=== PATIENT | female | born 1970 | race Caucasian/White ===

== ENCOUNTER 2024-07-01 11:35 | Outpatient (AMB) | payer OTHER, SELFPAY ==
--- NOTE | 2024-07-01 11:37 | A.OFFVIS_ITS ---
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 Patient is followed by neurosurgeon Dr. Villatoro in [place] and has been also followed by pain management in [place] for injection therapy. She reports her pain specialist provider has left the practice. Patient reports small arachnoid cyst in T5-T6 on the right and has discussion surgical removal with Dr. Villatoro. Patient does have a Medtronic spinal cord stimulator with non rechargeable battery with paddles which is due for replacement. rep Valdo from [employer] is present today and has interrogated spinal cord stimulator device today and reports device is due for battery replacement otherwise no program adjustment is needed. Patient is also taking tramadol and baclofen, prescribed by PCP. Patient reports chronic low back pain and postlaminectomy syndrome has been well managed with spinal cord stimulator in place and she is looking for battery replacement. She reports significant localized tenderness in the projection of bilateral sacroiliac joint areas in greater trochanteric bursae. Patient interested to undergo therapeutic injections for SI joint pain. She has been getting therapeutic GTB injections every 3-4 months, with last injections one month ago. 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 Pain affects her daily activities and functioning, mobility, sleep, mood, and social interactions. Denies any fever or chills, abdominal or groin pain, weakness, foot drop, bladder or bowel dysfunction or saddle anesthesia. Location: Lower back with radiation into buttocks and lateral hips Duration: Chronic pain for many years Characteristics of symptom or complaint: Aching, throbbing, sharp, tightness, stabbing, crushing, tugging, tiring Aggravating or associated factors: Prolonged sitting or standing, walking, movements Relieving factors: Sitting, tramadol, baclofen, heat therapy Treatment: Injections for back/hips, TENS unit, Oska pulse pain relief, Medtronic SCS [facility] Medical History (Updated 07/01/24 @ 23:19 by CARMELA Chávez) Vitamin D deficiency Vitamin B12 deficiency Rhinitis PTSD (post-traumatic stress disorder) Ocular migraine Moderate somatic symptom disorder Nephrolithiasis Neck pain Knee pain Iron deficiency Hypercholesterolemia History of tobacco use History of colon polyps Hematuria Headache disorder GERD (gastroesophageal reflux disease) Fibromyalgia Depression Chronic mid back pain Chronic lower back pain Carpal tunnel syndrome, bilateral Borderline personality disorder Bipolar disorder Basilar artery migraine Asthma Anxiety Acute gastric ulcer Surgical History Gastric bypass status for obesity S/P insertion of spinal cord stimulator (~2021) H/O gastric bypass (~2000) H/O: hysterectomy (~2015) History of carpal tunnel surgery (~2016) History of section (~1986) History of back surgery (~2014) Social History Alcohol intake: current Alcohol intake frequency: holidays/special occasions only Patient Tobacco Use Status: Former Tobacco user Review of Systems Const All systems reviewed & are unremarkable except as noted in HPI and below Physical Exam Vital Signs: Last Vital Signs Pulse 78 07/01/24 11:46 BP 150/72 H 07/01/24 11:46 Pulse Ox 97 07/01/24 11:46 Oxygen Delivery Method Room Air 07/01/24 11:46 BMI result Body Mass Index 40.2 General: Appears afebrile. Alert and oriented. Mood and affect appropriate. Follows and participates in conversation appropriately. Respiratory effort is unlabored. No cough. Able to transition from sit to stand unassisted. Ambulates with bilaterally normal heel strike and toe off. General: Yes no CVA tenderness Back/Spine/Pelvis Other: Limited lumbar ROM due to pain. Lumbar flexion and extension reproduces mild symptoms. Demonstrates 5/5 strength of quadriceps bilaterally as well as flexion/dorsiflexion of bilateral feet against resistance. 2+ pedal pulses bilaterally. Seated straight leg rise with dorsiflexion negative bilaterally. Diminished patellar and achilles reflexes bilaterally. Facet loading test positive bilaterally. Dave sign, Amrit?s, [place], Pelvic compression and Stinchfield tests are positive bilaterally, left worse than right. No groin pain with I/E hip rotations. Mild TTP bilateral GTB. Valsalva maneuver negative. Back: no CVA tenderness Cervical Spine: cervical ROM normal, cervical muscular tenderness and No Cervical spine tenderness Thoracic/Lumbar Spine: thoracic and lumbar spine normal to inspection, Thoracic/lumbar spine scar(s), Lasegue's sign negative, straight leg raise negative bilaterally, pain with thoraco-lumbar ROM, paraspinal muscle tenderness, thoraco-lumbar ROM limited, thoracic spinal tenderness (upper thoracic) and lumbar spinal tenderness (L4-S1) Pelvis: buttock tenderness Sacroiliac joints: bilaterally tender to palpation Results Reviewed Results Reviewed: 11/25/2018 11/25/2018 MRI Thoracic spine w/o contrast 05/24/24 Assessment & Plan Assessment & Plan (1) Lumbar post-laminectomy syndrome: Code(s): M96.1 - Postlaminectomy syndrome, not elsewhere classified Category: Medical (2) Battery end of life of spinal cord stimulator: Code(s): Z45.42 - Encounter for adjustment and management of neurostimulator Category: Medical (3) Sacroiliac joint pain: Code(s): M53.3 - Sacrococcygeal disorders, not elsewhere classified Category: Medical (4) Greater trochanteric bursitis of both hips: Code(s): M70.61 - Trochanteric bursitis, right hip; M70.62 - Trochanteric bursitis, left hip Category: Medical (5) Chronic lower back pain: Code(s): M54.50 - Low back pain, unspecified; G89.29 - Other chronic pain Category: Medical (6) Lumbar degenerative disc disease: Code(s): M51.36 - Other intervertebral disc degeneration, lumbar region Category: Medical Plan Patient will follow up with Neurosurgeon Dr. Villatoro for Medtronic SCS battery replacement as this was neurosurgically implanted with paddles in 2021. Schedule bilateral therapeutic sacroiliac joint injections with local and fluoroscopy. Expectations, risks and benefits were reviewed. Patient is aware she will be contacted to schedule this procedure. Script provided for lidocaine patches and diclofenac gel. Patient is currently on tramadol 50 mg QID prn and baclofen 10 mg TID prn prescribed by her PCP. Patient reports current opioid medication allows her to be less symptomatic and more functional. All questions were answered and the patient is in agreement of plan. Follow-up after injections and sooner as needed. Medications: New 2 diclofenac sodium 1% (Arthritis Pain (diclofenac)) 4 grams topical QID 100 grams 1RF pain lidocaine 5% leave on most painful area for up to 12 hrs topically daily; 30 ea 1RF pain Coding Level of Care Code New Pt Level 4 (66535) Complex EM visit Add On G2211 Diagnoses Lumbar post-laminectomy syndrome M96.1 Battery end of life of spinal cord stimulator Z45.42 Sacroiliac joint pain M53.3 Greater trochanteric bursitis of both hips M70.61; M70.62 Chronic lower back pain M54.50; G89.29 Lumbar degenerative disc disease M51.36
[2024-07-01 11:46] VITALS: BP 150/72; PULSE 78; O2SAT 97; BMI 40.2
== END 2024-07-01 12:23 | disposition home or self-care (01) ==
PROVIDERS: PCP Internal Medicine; Visit Provider Nurse Practitioner Family
DX: M96.1 Postlaminectomy syndrome, not elsewhere classified (principal); Z45.42 Encounter for adjustment and management of neurostimulator; M53.3 Sacrococcygeal disorders, not elsewhere classified; M70.61 Trochanteric bursitis, right hip; M70.62 Trochanteric bursitis, left hip; M54.50 Low back pain, unspecified; G89.29 Other chronic pain; M51.36 Other intervertebral disc degeneration, lumbar region
CPT/HCPCS: 99204

== ENCOUNTER → 2024-07-01 11:35 | Outpatient (BNVA) | payer OTHER, SELFPAY | PROVIDERS: PCP Internal Medicine; Visit Provider Nurse Practitioner Family ==

== ENCOUNTER 2024-08-27 06:14 | Outpatient (REF) | payer OTHER, SELFPAY | END 2024-08-27 06:15 | disposition home or self-care (01) | LOC: CF 06:14 | PROVIDERS: Visit Provider Anesthesiology | DX: M53.3 Sacrococcygeal disorders, not elsewhere classified (principal) | CPT/HCPCS: 27096; J2003; J2795; J3301; Q9967 ==

== ENCOUNTER 2024-08-27 07:57 | Outpatient (AMB) | payer OTHER, SELFPAY ==
[2024-08-27 08:20] VITALS: BP 137/59; PULSE 98; RESP 17; O2SAT 97
[2024-08-27 08:40] VITALS: BP 142/75; PULSE 84; RESP 16; O2SAT 99
--- NOTE | 2024-08-27 08:46 | MHC.OFFVIS ---
Vital Signs 08/27/24 08:20 08/27/24 08:40 BP 137/59 L 142/75 H Blood Pressure Location Rt brachial Rt brachial Position Sitting Sitting Respiration 17 16 Pulse 98 84 Pulse Source Pulse Oximeter Pulse Oximeter Pulse Oximetry (%) 97 99 Oxygen Delivery Method Room Air Room Air Comment Pre-op Post-op Intake Visit Reasons: BILATERAL THERAPEUTIC SIJ INJECTIONS Allergies gabapentin Allergy (Unknown, Verified 08/27/24 08:47) suicidal thoughts lamotrigine [From Lamictal] Allergy (Unknown, Verified 08/27/24 08:47) Unknown Medication List - Last Reconciled 08/27/24 by Sonia Craig albuterol sulfate 90 mcg/actuation 2 puffs inhalation Q4-6H PRN ascorbate calcium (vitamin C) 500 mg PO DAILY baclofen 10 mg PO TID diclofenac sodium 1% (Arthritis Pain (diclofenac)) 4 grams topical QID ferrous sulfate (Iron (ferrous sulfate)) 325 mg PO DAILY fluticasone propion-salmeterol 500-50 mcg/dose (Advair Diskus) 1 inh inhalation BID hydroxyzine HCl 25 mg PO BID PRN lidocaine 5% leave on most painful area for up to 12 hrs topically daily; omeprazole 40 mg PO DAILY oxybutynin chloride ER 5 mg PO DAILY rosuvastatin 5 mg PO DAILY tramadol 50 mg PO Q6H PRN PFSH Medical History (Updated 07/01/24 @ 23:19 by CARMELA Chávez) Vitamin D deficiency Vitamin B12 deficiency Rhinitis PTSD (post-traumatic stress disorder) Ocular migraine Moderate somatic symptom disorder Nephrolithiasis Neck pain Knee pain Iron deficiency Hypercholesterolemia History of tobacco use History of colon polyps Hematuria Headache disorder GERD (gastroesophageal reflux disease) Fibromyalgia Depression Chronic mid back pain Chronic lower back pain Carpal tunnel syndrome, bilateral Borderline personality disorder Bipolar disorder Basilar artery migraine Asthma Anxiety Acute gastric ulcer Surgical History Gastric bypass status for obesity S/P insertion of spinal cord stimulator (~2021) H/O gastric bypass (~2000) H/O: hysterectomy (~2015) History of carpal tunnel surgery (~2016) History of section (~1986) History of back surgery (~2014) Social History Alcohol intake: current Alcohol intake frequency: holidays/special occasions only Patient Tobacco Use Status: Former Tobacco user Physical Exam Vital Signs: Last Vital Signs Pulse 84 08/27/24 08:40 Resp 16 08/27/24 08:40 BP 142/75 H 08/27/24 08:40 Pulse Ox 99 08/27/24 08:40 Oxygen Delivery Method Room Air 08/27/24 08:40 Assessment & Plan Assessment & Plan (1) Sacroiliac joint pain: Code(s): M53.3 - Sacrococcygeal disorders, not elsewhere classified Category: Medical Plan Bilateral therapeutic sacroiliac joint injection Informed consent was explained thoroughly to the patient.? All questions about benefits and risks for the procedure were answered. Patient came to the operating room and was positioned prone on the operating table with the pillow under the abdomen. The lower back and buttocks of the patient were prepped with ChloraPrep prepped and draped with sterile utility towels.? Sterilely draped C-arm was brought over the operating field and sq picture of patient's pelvis was demonstrated on the screen.? For the right joint tilting C-arm contralateral to the site of the joint the most posterior portion of the joints was superimposed with anterior silhouette of the joint.? Skin was injected in the projection of the joint slightly medial to the location of the joint with 25 gauge 1/2 inch needle using local lidocaine 2% . After that 22 gauge 3 and 1/2 inch needle was driven to the right joint in tunnel vision fashion.? When needle entered the joint capsule injection of the contrast was performed demonstrating intra-articular and minimally periarticular spread of the contrast.? After that 4 cc. of ropivacaine 0.5% mixed with Kenalog 40 mg was injected in the joint. After that procedure was repeated on the left side in mirroring fashion. Same dose of ropivacaine was injected into the joint. Upon completion of the injections the needle was removed and Band-Aid was applied.? Upon completion of the injection patient was taken outside of the operating room to the recovery room where recovered uneventfully. Orders: Orders [place] guidance in treatment room Today M53.3 - Sacrococcygeal disorders, not elsewhere classified Coding Level of Care Code Procedure Only Diagnoses Sacroiliac joint pain M53.3
== END 2024-08-27 08:45 | disposition home or self-care (01) ==
LOC: HO.PMCPRC 07:57
PROVIDERS: PCP Internal Medicine; Visit Provider Anesthesiology
DX: M53.3 Sacrococcygeal disorders, not elsewhere classified (principal)
CPT/HCPCS: 27096

== ENCOUNTER 2024-09-24 09:57 | Outpatient (AMB) | payer OTHER, SELFPAY ==
--- NOTE | 2024-09-24 10:02 | MHC.OFFVIS ---
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 Pascual. Patient reports ongoing 70% pain relief in the projection of bilateral SIJ areas with significant improvement in her daily functioning, mobility and sleep. She continues to experience pain both GTB regions and intermittent right calf warm sensations with tingling and chronic low back pain. Patient recently underwent batter replacement by Dr. Villatoro for lumbar Medtronic SCS implant 2 months ago. Patient is content with overall outcome for SIJ injections and will continue to monitor symptoms. Denies any recent cough, cold, infection, fever, bladder or bowel dysfunction, saddle anesthesia, or any other significant changes in medical or surgical history since last office visit. Past Procedures: 08/27/24: Bilateral Therapeutic SIJ injections-70% ongoing pain relief PRIOR: Patient is a pleasant 54 years old female under history of chronic mid and low back pain, history of L4-L5 lumbar fusion, fibromyalgia, chronic greater trochanteric bursitis, sacroiliac joint pain, anxiety and depression, PTSD, gastric bypass and morbid obesity presents today for initial evaluation of chronic low back pain. Patient is followed by neurosurgeon Dr. Villatoro in [place] and has been also followed by pain management in [place] for injection therapy. She reports her pain specialist provider has left the practice. Patient reports small arachnoid cyst in T5-T6 on the right and has discussion surgical removal with Dr. Villatoro. Patient does have a Medtronic spinal cord stimulator with non rechargeable battery with paddles which is due for replacement. rep Valdo from [employer] is present today and has interrogated spinal cord stimulator device today and reports device is due for battery replacement otherwise no program adjustment is needed. Patient is also taking tramadol and baclofen, prescribed by PCP. Patient reports chronic low back pain and postlaminectomy syndrome has been well managed with spinal cord stimulator in place and she is looking for battery replacement. She reports significant localized tenderness in the projection of bilateral sacroiliac joint areas in greater trochanteric bursae. Patient interested to undergo therapeutic injections for SI joint pain. She has been getting therapeutic GTB injections every 3-4 months, with last injections one month ago. 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 Pain affects her daily activities and functioning, mobility, sleep, mood, and social interactions. Denies any fever or chills, abdominal or groin pain, weakness, foot drop, bladder or bowel dysfunction or saddle anesthesia. Location: Lower back with radiation into buttocks and lateral hips Duration: Chronic pain for many years Characteristics of symptom or complaint: Aching, throbbing, sharp, tightness, stabbing, crushing, tugging, tiring Aggravating or associated factors: Prolonged sitting or standing, walking, movements Relieving factors: Sitting, tramadol, baclofen, heat therapy Treatment: Injections for back/hips, TENS unit, Oska pulse pain relief, Medtronic SCS [facility] Medical History Vitamin D deficiency Vitamin B12 deficiency Rhinitis PTSD (post-traumatic stress disorder) Ocular migraine Moderate somatic symptom disorder Nephrolithiasis Neck pain Knee pain Iron deficiency Hypercholesterolemia History of tobacco use History of colon polyps Hematuria Headache disorder GERD (gastroesophageal reflux disease) Fibromyalgia Depression Chronic mid back pain Chronic lower back pain Carpal tunnel syndrome, bilateral Borderline personality disorder Bipolar disorder Basilar artery migraine Asthma Anxiety Acute gastric ulcer Surgical History Gastric bypass status for obesity S/P insertion of spinal cord stimulator (~2021) H/O gastric bypass (~2000) H/O: hysterectomy (~2015) History of carpal tunnel surgery (~2016) History of section (~1986) History of back surgery (~2014) Social History Alcohol intake: current Alcohol intake frequency: holidays/special occasions only Patient Tobacco Use Status: Former Tobacco user Review of Systems Const All systems reviewed & are unremarkable except as noted in HPI and below Physical Exam General: Appears afebrile. Alert and oriented. Mood and affect appropriate. Follows and participates in conversation appropriately. Respiratory effort is unlabored. No cough. Able to transition from sit to stand unassisted. Ambulates with bilaterally normal heel strike and toe off. Back/Spine/Pelvis Cervical Spine: cervical ROM normal, cervical muscular tenderness and No Cervical spine tenderness Thoracic/Lumbar Spine: thoracic and lumbar spine normal to inspection, Thoracic/lumbar spine scar(s), Lasegue's sign negative, straight leg raise negative bilaterally, pain with thoraco-lumbar ROM, paraspinal muscle tenderness, thoraco-lumbar ROM limited, thoracic spinal tenderness (upper thoracic) and lumbar spinal tenderness (L4-S1) Pelvis: no buttock tenderness, no buttock swelling and Other pelvic findings (well healed left buttock incision) Sacroiliac joints: bilaterally tender to palpation (mild) Coccyx: Other pelvic findings (well healed left buttock incision) Extrem General: Yes capillary refill normal, Yes no clubbing, cyanosis or edema and Yes no calf tenderness Results Reviewed Results Reviewed: 11/25/2018 11/25/2018 MRI Thoracic spine w/o contrast 05/24/24 Assessment & Plan Assessment & Plan (1) Lumbar post-laminectomy syndrome: Code(s): M96.1 - Postlaminectomy syndrome, not elsewhere classified Category: Medical (2) Sacroiliac joint pain: Code(s): M53.3 - Sacrococcygeal disorders, not elsewhere classified Category: Medical (3) Greater trochanteric bursitis of both hips: Code(s): M70.61 - Trochanteric bursitis, right hip; M70.62 - Trochanteric bursitis, left hip Category: Medical (4) Chronic lower back pain: Code(s): M54.50 - Low back pain, unspecified; G89.29 - Other chronic pain Category: Medical (5) Lumbar degenerative disc disease: Code(s): M51.36 - Other intervertebral disc degeneration, lumbar region Category: Medical Plan Patient is status post recent Medtronic SCS battery replacement by Neurosurgeon Dr. Villatoro in July 2024. She reports ongoing 70% pain relief since bilateral therapeutic sacroiliac joint injections. We also reviewed SI joint stabilization with Painteq fusion device. Information pamphlet provided. Patient will continue to monitor her SIJ symptoms and notify our office when her pain returns to baseline. We will send request to [facility] and [facility] for most recent hip imaging for potential GTB injections in the near future if needed. All questions were answered and the patient is in agreement of plan. Follow-up as needed. Coding Level of Care Code Est Pt Level 3 (97732) Complex EM visit Add On G2211 Diagnoses Lumbar post-laminectomy syndrome M96.1 Sacroiliac joint pain M53.3 Greater trochanteric bursitis of both hips M70.61; M70.62 Chronic lower back pain M54.50; G89.29 Lumbar degenerative disc disease M51.36
[2024-09-24 10:06] VITALS: BP 142/70; PULSE 80; O2SAT 97; BMI 40.2
--- OUTSIDE RECORDS SUMMARY | 2024-09-25 19:37 | XMS_ITS | Continuity of Care Document ---
Author Organization [facility] Gareth Lares Quintin lt Address [address] [place] [address]- Care Team Providers Care Licsw Name Role Phone Jocelyn SANDOVAL, Juan Osborn Primary Care Physician [phone] Encounter [facility] Date(s): 08/07/24 - 09/06/24 [facility] Gareth Lares Adult [address] [place] [address]- Encounter Type: Triage Allergies, Adverse Reactions, Alerts Substance Criticality Severity Reaction Reaction Severity Status gabapentin Active LaMICtal dizziness Active Immunizations Given and Recorded Vaccine Date Status Refusal Reason pneumococcal 20-valent conjugate vaccine 01/27/23 Given Influenza Virus Vaccine (oldterm) 07/08/22 Recorde d Influenza Virus Vaccine (oldterm) 06/05/20 Recorde d Influenza Virus Vaccine (oldterm) 06/28/19 Recorde d Influenza Virus Vaccine (oldterm) 06/28/19 Recorde d [id number] 12y+ bivalent booster vax 07/08/22 Recorded influenza virus vaccine, inactivated 08/13/21 Give n influenza virus vaccine, inactivated 06/25/18 Thony rded influenza virus vaccine, inactivated 1 07/18/17 Re corded influenza virus vaccine, inactivated 07/17/17 Thony rded influenza virus vaccine, inactivated 08/09/16 Thony rded influenza virus vaccine, inactivated 2 07/16/16 Re corded influenza virus vaccine, inactivated 07/21/15 Give n influenza virus vaccine, inactivated 08/14/14 Thony rded influenza virus vaccine, inactivated 07/10/14 Give n influenza virus vaccine, inactivated 10/02/13 Give n zoster vaccine, inactivated 03/16/21 Recorded zoster vaccine, inactivated 01/27/21 Recorded SARS-CoV-2 (COVID-19) mRNA BNT-162b2 vac 03/01/21 Recorded SARS-CoV-2 (COVID-19) mRNA BNT-162b2 vac 02/08/21 Recorded tetanus/diphtheria/pertussis, acel(Tdap) 01/18/21 Given pneumococcal 23-valent vaccine 09/02/15 Given FluLaval (oldterm) 06/22/11 Given FluLaval (oldterm) 3 08/09/10 Given Tet/Diphth/Acel, Pertussis (oldterm) 12/14/10 Give n Influenza Vaccine (oldterm) 10/22/09 Given tetanus-diphtheria toxoids (Td) 09/15/00 Given Pneumococcal Vaccine (oldterm) 09/15/00 Given 1Result Comment: [07/19/2017] aleah 2Location History: aleah [address] 3Admin Note: Goomeo [facility] Medications Advair Diskus 500 mcg-50 mcg inhalation powder 1 puff, Inhalation, 2 times a day, # 3 each, Refills 3, Tot. Refills 3, Soft Stop, 01/01/24 8:51:00 AM EDT, Print Requisition Start Date: 01/01/24 Status: Ordered Quantity: 3.0 Unit: each Repeat number: 4 Albuterol (Eqv-ProAir HFA) 90 mcg/inh inhalation aerosol 2 puffs, Inhalation, Every 6 hours, PRN NEEDED FOR WHEEZING, # 3 each, 3 Refills, Maintenance, 08/13/21 9:12:00 AM EDT, [facility] #[id number], 2 puffs Inhalation Every 6 hours,PRN: NEEDED FOR WHEEZING, 170, cm, 08/13/21 9:00:00 EDT, Height, 117.3, kg, 01/17/21 12:43:00 EDT, Dry Weight Start Date: 08/13/21 Status: Ordered Quantity: 3.0 Unit: each Repeat number: 4 baclofen 10 mg oral tablet 1, tablet, By Mouth, 3 times a day, # 270 tablet, Refills 3, Tot. Refills 3, Maintenance, 02/09/24 1:13:00 PM EDT, Route to Pharmacy Electronically, [facility]/pharmacy #[id number], 168, cm, 02/09/24 12:56:00 EDT,Height, 107, kg, 02/10/23 13:11:00 EDT, Dry Weight Start Date: 02/09/24 Stop Date: 02/03/25 Status: Ordered Quantity: 270.0 Unit: tablet Repeat number: 4 controlled contract signed controlled contract signed, See Instructions, Refills 0, Maintenance, pt signed a controlled substance contract, 07/04/18 3:00:46 PM EDT, Compound Start Date: 07/04/18 Status: Ordered Repeat number: 1 Crestor 5 mg oral tablet 1 tablet = 5 mg, By Mouth, Daily, # 90 tablet, 3 Refills, Maintenance, 02/09/24 1:13:00 PM EDT, Tablet, [facility]/pharmacy #[id number], 168, cm, 02/09/24 12:56:00 EDT, Height, 107, kg, 02/10/23 13:11:00 EDT, Dry Weight Start Date: 02/09/24 Status: Ordered Quantity: 90.0 Unit: tablet Repeat number: 4 ferrous sulfate 325 mg oral tablet 1 tablet = 325 mg, By Mouth, Daily, may take with food to minimize abdominal discomfort, # 90 tablet, 3 Refills, Maintenance, 02/09/24 1:13:00 PM EDT, Tablet, [facility]/pharmacy #[id number], Partial fill upon patient request if the prescription is for a schedule II opioid drug., 168, cm, 02/09/24 12:56:00 EDT, Height, 107, kg, 02/10/23 13:11:00 EDT, Dry Weight Start Date: 02/09/24 Status: Ordered Quantity: 90.0 Unit: tablet Repeat number: 4 folic acid 1 mg oral tablet 1 mg, 1, tablet, By Mouth, Daily, # 90 tablet, Refills 3, Tot. Refills 3, Maintenance, 02/09/24 1:13:00 PM EDT, Route to Pharmacy Electronically, [facility]/pharmacy #[id number], Partial fill upon patient request if the prescription is for a schedule II opioid drug., 168, cm, 02/09/24 12:56:00 EDT, Height, 107, kg, 02/10/23 13:11:00 EDT, Dry Weight Start Date: 02/09/24 Status: Ordered Quantity: 90.0 Unit: tablet Repeat number: 4 Hearing Test Hearing Test, See Instructions, # 1 each, Refills 1, Tot. Refills 1, Maintenance, Eval and treat. Dx: Hearing loss, 07/09/18 4:51:13 PM EDT, Compound Start Date: 07/09/18 Status: Ordered Quantity: 1.0 Unit: each Repeat number: 2 hydrOXYzine hydrochloride 25 mg oral tablet 2 tablet, By Mouth, Daily at bedtime, # 180 tablet, 3 Refills, Maintenance, 08/12/24 11:03:00 AM EDT, [id number], 168, cm, 04/08/24 8:20:00 EDT, Height, 107, kg, 02/10/23 13:11:00 EDT, Dry Weight Start Date: 08/12/24 Status: Ordered Quantity: 180.0 Unit: tablet Repeat number: 1 ibuprofen 800 mg oral tablet 1, tablet, By Mouth, 3 times a day, # 270 tablet, Refills 3, Tot. Refills 3, Maintenance, 02/09/24 1:13:00 PM EDT, Route to Pharmacy Electronically, [facility]/pharmacy #[id number], 168, cm, 02/09/24 12:56:00 EDT,Height, 107, kg, 02/10/23 13:11:00 EDT, Dry Weight Start Date: 02/09/24 Stop Date: 02/03/25 Status: Ordered Quantity: 270.0 Unit: tablet Repeat number: 4 LORazepam 0.5 mg oral tablet 1 tablet = 0.5 mg, By Mouth, 3 times a day, PRN for anxiety, # 12 tablet, 0 Refills, Maintenance, 08/07/24 4:02:00 PM EDT, Tablet, [facility]/pharmacy #[id number], Partial fill upon patient request if the prescription is for a schedule II opioid drug., 168, cm, 04/08/24 8:20:00 EDT, Height, 107, kg, 02/10/23 13:11:00 EDT, Dry Weight Start Date: 08/07/24 Status: Ordered Quantity: 12.0 Unit: tablet Repeat number: 1 NEBULIZER AND SUPPLIES NEBULIZER AND SUPPLIES, See Instructions, # 1 each, Refills 11, Tot. Refills 11, Maintenance, PLEASE DISPENCE 1 NEBULIZER AND SUPPLIES FOR MACHINE, 01/19/18 9:02:35 AM EDT, Compound Start Date: 01/19/18 Status: Ordered Quantity: 1.0 Unit: each Repeat number: 12 omeprazole 40 mg oral enteric coated capsule 1 capsule, By Mouth, 2 times a day, # 180 capsule, 3 Refills, Maintenance, 02/09/24 1:13:00 PM EDT, [facility]/pharmacy #[id number], 168, cm, 02/09/24 12:56:00 EDT, Height, 107, kg, 02/10/23 13:11:00 EDT, Dry Weight Start Date: 02/09/24 Status: Ordered Quantity: 180.0 Unit: capsule Repeat number: 4 oxybutynin 5 mg/24 hours oral tablet, extended release 1 tablet, By Mouth, Daily at bedtime, DO NOT CRUSH OR CHEW, # 90 tablet, 3 Refills, Maintenance, 02/09/24 1:13:00 PM EDT, [facility]/pharmacy #[id number], 168, cm, 02/09/24 12:56:00 EDT, Height, 107, kg, 02/10/23 13:11:00 EDT, Dry Weight Start Date: 02/09/24 Stop Date: 02/03/25 Status: Ordered Quantity: 90.0 Unit: tablet Repeat number: 4 traMADol 50 mg oral tablet 1 tablet, By Mouth, Every 6 hours, # 120 tablet, 5 Refills, Maintenance, 07/17/24 1:37:00 PM EDT, [facility]/pharmacy #[id number], 168, cm, 04/08/24 8:20:00 EDT, Height, 107, kg, 02/10/23 13:11:00 EDT, Dry Weight Start Date: 07/17/24 Stop Date: 01/13/25 Status: Ordered Quantity: 120.0 Unit: tablet Repeat number: 6 Vitamin C 500 mg oral tablet 1 tablet = 500 mg, By Mouth, Daily, # 90 tablet, 3 Refills, Maintenance, 02/09/24 1:17:00 PM EDT, Tablet, [facility]/pharmacy #[id number], Partial fill upon patient request if the prescription is for a schedule IIopioid drug., 168, cm, 02/09/24 12:56:00 EDT, Height, 107, kg, 02/10/23 13:11:00 EDT, Dry Weight Start Date: 02/09/24 Status: Ordered Quantity: 90.0 Unit: tablet Repeat number: 4 Vitamin C 500 mg oral tablet, chewable 1 tablet = 500 mg, Chew, Daily, Take with iron pill at lunch time to help with iron absorption, # 90 tablet, 1 Refills, Maintenance, 10/21/22 1:55:00 PM EST, Chew Tablet, [facility]pharmacy #[id number], Partial fill upon patient request if the prescription is for a schedule II opioid drug., 170, cm, 10/21/22 12:52:00 EST, Height, 117.3, kg, 01/17/21 12:43:00 EDT, Dry Weight Start Date: 10/21/22 Status: Ordered Quantity: 90.0 Unit: tablet Repeat number: 2 Problem List Condition Confirmation Course Effective Dates Status Health Status Informant Acute gastric ulcer Confirmed Active Anxiety Confirmed Active Asthma Confirmed Active Basilar artery migraine Confirmed Active Bipolar disorder Confirmed Active Borderline personality disorder Confirmed Active Carpal tunnel syndrome on both sides 1 Confirmed Active Chronic mid back pain Confirmed Active Chronic low back pain Confirmed Active Depression Confirmed Active Fibromyalgia Confirmed Active Gastric bypass operation Confirmed Active GERD (gastroesophageal reflux disease) Confirmed Active History of hysterectomy 2 Confirmed Active Headache disorder Confirmed Active Hematuria Confirmed Active History of colonoscopy 3 Confirmed Active History of colon polyps Confirmed Active History of tobacco use Confirmed 06/22/11 Active Hypercholesterolemia Confirmed Active Iron deficiency Confirmed Active Neck pain Confirmed Active Nephrolithiasis Confirmed Active Ocular migraine Confirmed Active Knee pain, right Confirmed Active PTSD - Post-traumatic stress disorder Confirmed Active Rhinitis Confirmed Active Severe obesity Confirmed Active 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 Finch 3Colonoscopy 2022 positive multiple polyps, repeat 2025. Social History Social History Type Response Smoking Status Former smoker; Other : quit smoking 1 1/2rs ago; entered on: 08/12/15 Sex Female Sex Representation Female (finding) Patient Care team information Care Team Personnel Name: Juan Banks MD Position: [facility] Physician - Primary Care Member Role: PCP Address: [address] [place], [place] [id number] Telecom: Name: Jeanie Jimenez RN Position: [facility] RN Member Role: Primary Care Nurse Name: Uyen Chanel RN Position: [facility] RN Member Role: Primary Care Nurse Name: Buzz Srivastava RN Position: [facility] RN Member Role: Primary Care Nurse Care Team Related Persons Name: MARCUS LARES Name: DORYS LARES Insurance Providers Guarantor name: ALETHARebecca KHOURYARNAUD Health Plan Information #: 1 [facility] Member Number: NA Policy Number: NA Group Number: NA
--- OUTSIDE RECORDS SUMMARY | 2024-09-25 19:37 | XMS_ITS | Continuity of Care Document ---
Author Organization [facility] Gareth Lares Quintin Address [address] [place] [id number]- Care Team Providers Care Banquet Kitchen Supervisor Name Role Phone Jocelyn SANDOVAL, Juan Osborn Primary Care Physician [phone] [place] [facility] [place]23[place] - 09/22/24 [facility] Gareth Leeley Adult [address] [place] [address]- Attending Physician: García Hull Encounter Type: Triage Allergies, Adverse Reactions, Alerts Substance Criticality Severity Reaction Reaction Severity Status gabapentin Active LaMICtal dizziness Active Immunizations Given and Recorded Vaccine Date Status Refusal Reason pneumococcal 20-valent conjugate vaccine 01/27/23 Given Influenza Virus Vaccine (oldterm) 07/08/22 Recorde d Influenza Virus Vaccine (oldterm) 06/05/20 Recorde d Influenza Virus Vaccine (oldterm) 06/28/19 Recorde d Influenza Virus Vaccine (oldterm) 06/28/19 Recorde d [id number] 12y+ bivalent booster vax 07/08/22 Recorded influenza [...] 1Result Comment: [07/19/2017] aleah 2Location History: aleah [address] 3Admin Note: [facility] Medications Advair Diskus 500 mcg-50 mcg [...] 3 Refills, Maintenance, 08/13/21 9:12:00 AM EDT, [facility] #[id number], 2 puffs Inhalation Every 6 hours,PRN: NEEDED [...] 1:13:00 PM EDT, Route to Pharmacy Electronically, [facility]/pharmacy #[id number], 168, cm, 02/09/24 12:56:00 EDT,Height, 107, [...] Refills, Maintenance, 02/09/24 1:13:00 PM EDT, Tablet, [facility]/pharmacy #[id number], 168, cm, 02/09/24 12:56:00 EDT, Height, 107, kg, 02/10/23 13:11:00 EDT, Dry Weight Start Date: 02/09/24 Status: Ordered Quantity: 90.0 Unit: tablet Repeat number: 4 ferrous sulfate 325 mg oral tablet 1 tablet = 325 mg, By Mouth, Daily, may take with food to minimize abdominal discomfort, # 90 tablet, 3 Refills, Maintenance, 02/09/24 1:13:00 PM EDT, Tablet, [facility]/pharmacy #[id number], Partial fill upon patient request if [...] 1:13:00 PM EDT, Route to Pharmacy Electronically, [facility]/pharmacy #[id number], Partial fill upon patient request if [...] 3 Refills, Maintenance, 08/12/24 11:03:00 AM EDT, [facility] STORE [id number], 168, cm, 04/08/24 8:20:00 EDT, Height, 107, kg, 02/10/23 13:11:00 EDT, Dry Weight Start Date: 08/12/24 Status: Ordered Quantity: 180.0 Unit: tablet Repeat number: 1 ibuprofen 800 mg oral tablet 1, tablet, By Mouth, 3 times a day, # 270 tablet, Refills 3, Tot. Refills 3, Maintenance, 02/09/24 1:13:00 PM EDT, Route to Pharmacy Electronically, [facility]/pharmacy #[id number], 168, cm, 02/09/24 12:56:00 EDT,Height, 107, kg, 02/10/23 13:11:00 EDT, Dry Weight Start Date: 02/09/24 Stop Date: 02/03/25 Status: Ordered Quantity: 270.0 Unit: tablet Repeat number: 4 LORazepam 0.5 mg oral tablet 1 tablet = 0.5 mg, By Mouth, 3 times a day, PRN for anxiety, # 12 tablet, 0 Refills, Maintenance, 08/07/24 4:02:00 PM EDT, Tablet, [facility]/pharmacy #[id number], Partial fill upon patient request if [...] 3 Refills, Maintenance, 02/09/24 1:13:00 PM EDT, [facility]/pharmacy #[id number], 168, cm, 02/09/24 12:56:00 EDT, Height, 107, kg, 02/10/23 13:11:00 EDT, Dry Weight Start Date: 02/09/24 Status: Ordered Quantity: 180.0 Unit: capsule Repeat number: 4 oxybutynin 5 mg/24 hours oral tablet, extended release 1 tablet, By Mouth, Daily at bedtime, DO NOT CRUSH OR CHEW, # 90 tablet, 3 Refills, Maintenance, 02/09/24 1:13:00 PM EDT, [facility]/pharmacy #[id number], 168, cm, 02/09/24 12:56:00 EDT, Height, 107, kg, 02/10/23 13:11:00 EDT, Dry Weight Start Date: 02/09/24 Stop Date: 02/03/25 Status: Ordered Quantity: 90.0 Unit: tablet Repeat number: 4 traMADol 50 mg oral tablet 1 tablet, By Mouth, Every 6 hours, # 120 tablet, 5 Refills, Maintenance, 07/17/24 1:37:00 PM EDT, [facility]/pharmacy #[id number], 168, cm, 04/08/24 8:20:00 EDT, Height, [...] 08/12/15 Sex Female Sex Representation Female (finding) Note * Event Display: History and Physical, Non-BH Authored Date: EKG study * Event Display: EKG Authored Date: * Event Display: EKG Authored Date: * Event Display: EKG Authored Date: Laboratory * Event Display: Non BH Lab Results Authored Date: * Event Display: Non BH Lab Results Authored Date: * Event Display: Laboratory Result Scanned Authored Date: Radiology * Event Display: IR Special Procedures, Non-BH Authored Date: * Event Display: IR Special Procedures, Non-BH Authored Date: * Event Display: IR Special Procedures, Non-BH Authored Date: * Event Display: X-Ray Knee, Non- BH Authored Date: * Event Display: Non BH Radiology Results Authored Date: * Event Display: Radiology Result Scanned Authored Date: * Alejandrina Henrietta: PERFORM Event Display: Radiology Results Scanned Authored Date: Patient Care team information Care Team Personnel Name: Jocelyn SANDOVAL, Juan Osborn Position: [facility] Physician - Primary Care Member Role: PCP Address: [address] [place] [address]- Telecom: Name: Jeanie Jimenez RN Position: [facility] RN Member Role: Primary Care Nurse Name: Uyen Chnael RN Position: S RN Member Role: Primary Care Nurse Name: Buzz Srivastava RN Position: S RN Member Role: Primary Care Nurse Care Team Related Persons Name: MARCUS LARES Name: DORYS LARES Insurance Providers Guarantor name: [facility] Information #: 1 Payer: [facility] Member Number: NA Policy Number: NA Group Number: NA
--- OUTSIDE RECORDS SUMMARY | 2024-09-25 19:37 | XMS_ITS | Continuity of Care Document ---
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 Name Role Phone Juan Banks MD Primary Care Physician [place] [facility] [place] 09[place]/24 [facility] Gareth Lares Adult [address] [place], [place] [address] Attending Physician: Juan Banks MD Encounter Type: Pre Office Visit Allergies, Adverse Reactions, Alerts Substance Criticality Severity Reaction Reaction Severity Status gabapentin Active LaMICtal dizziness Active Immunizations Given and Recorded Vaccine Date Status Refusal Reason pneumococcal 20-valent conjugate vaccine 01/27/23 Given Influenza Virus Vaccine (oldterm) 07/08/22 Recorde d Influenza Virus Vaccine (oldterm) 06/05/20 Recorde d Influenza Virus Vaccine (oldterm) 06/28/19 Recorde d Influenza Virus Vaccine (oldterm) 06/28/19 Recorde d [id number] 12y+ bivalent booster vax 07/08/22 Recorded influenza [...] 1Result Comment: [07/19/2017] aleah 2Location History: aleah [address] 3Admin Note: [facility] Medications Advair Diskus 500 mcg-50 mcg [...] 3 Refills, Maintenance, 08/13/21 9:12:00 AM EDT, [facility] #[id number], 2 puffs Inhalation Every 6 hours,PRN: NEEDED [...] 1:13:00 PM EDT, Route to Pharmacy Electronically, [facility]/pharmacy #[id number], 168, cm, 02/09/24 12:56:00 [...] Refills, Maintenance, 02/09/24 1:13:00 PM EDT, Tablet, [facility]/pharmacy #1157, 168, cm, 02/09/24 12:56:00 EDT, Height, 107, kg, 02/10/23 13:11:00 EDT, Dry Weight Start Date: 02/09/24 Status: Ordered Quantity: 90.0 Unit: tablet Repeat number: 4 ferrous sulfate 325 mg oral tablet 1 tablet = 325 mg, By Mouth, Daily, may take with food to minimize abdominal discomfort, # 90 tablet, 3 Refills, Maintenance, 02/09/24 1:13:00 PM EDT, Tablet, [facility]/pharmacy #[id number], Partial fill upon patient [...] 1:13:00 PM EDT, Route to Pharmacy Electronically, [facility]/pharmacy #[id number], Partial fill upon patient [...] 3 Refills, Maintenance, 08/12/24 11:03:00 AM EDT, [facility]ORE 612[facility], 168, cm, 04/08/24 8:20:00 EDT, Height, 107, kg, 02/10/23 13:11:00 EDT, Dry Weight Start Date: 08/12/24 Status: Ordered Quantity: 180.0 Unit: tablet Repeat number: 1 ibuprofen 800 mg oral tablet 1, tablet, By Mouth, 3 times a day, # 270 tablet, Refills 3, Tot. Refills 3, Maintenance, 02/09/24 1:13:00 PM EDT, Route to Pharmacy Electronically, [facility]/pharmacy #[id number], 168, cm, 02/09/24 12:56:00 EDT,Height, 107, kg, 02/10/23 13:11:00 EDT, Dry Weight Start Date: 02/09/24 Stop Date: 02/03/25 Status: Ordered Quantity: 270.0 Unit: tablet Repeat number: 4 LORazepam 0.5 mg oral tablet 1 tablet = 0.5 mg, By Mouth, 3 times a day, PRN for anxiety, # 12 tablet, 0 Refills, Maintenance, 08/07/24 4:02:00 PM EDT, Tablet, [facility]/pharmacy #[id number], Partial fill upon patient [...] 3 Refills, Maintenance, 02/09/24 1:13:00 PM EDT, [facility]/pharmacy #1157, 168, cm, 02/09/24 12:56:00 EDT, Height, 107, kg, 02/10/23 13:11:00 EDT, Dry Weight Start Date: 02/09/24 Status: Ordered Quantity: 180.0 Unit: capsule Repeat number: 4 oxybutynin 5 mg/24 hours oral tablet, extended release 1 tablet, By Mouth, Daily at bedtime, DO NOT CRUSH OR CHEW, # 90 tablet, 3 Refills, Maintenance, 02/09/24 1:13:00 PM EDT, [facility]/pharmacy #1157, 168, cm, 02/09/24 12:56:00 EDT, Height, 107, kg, 02/10/23 13:11:00 EDT, Dry Weight Start Date: 02/09/24 Stop Date: 02/03/25 Status: Ordered Quantity: 90.0 Unit: tablet Repeat number: 4 traMADol 50 mg oral tablet 1 tablet, By Mouth, Every 6 hours, # 120 tablet, 5 Refills, Maintenance, 07/17/24 1:37:00 PM EDT, [facility]/pharmacy #1157, 168, cm, 04/08/24 8:20:00 [...] Maintenance, 10/21/22 1:55:00 PM EST, Chew Tablet, [facility]/pharmacy #[id number], Partial fill upon patient [...] deficiency Confirmed 10/07/11 Active 1EMG 08/14/14 Mild [address] - Dr. Finch 3Colonoscopy 2022 positive multiple polyps, repeat 2025. Social History Social History Type Response Smoking Status Former smoker; Other : quit smoking 1 1/2rs ago; entered on: 08/12/15 Sex Female Sex Representation Female (finding) Patient Care team information Care Team Personnel Name: Jocelyn SANDOVAL, Juan Osborn Position: [facility] Physician - Primary Care Member Role: PCP Address: [address] [place] [phone]- Telecom: Name: Jeanie Jimenez RN Position: S RN Member Role: Primary Care Nurse Name: Uyen Chanel RN Position: [facility] RN Member Role: Primary Care Nurse Name: Buzz Srivastava RN Position: [facility] RN Member Role: Primary Care Nurse Care Team Related Persons Name: MARCUS LARES Name: DORYS LARES Insurance Providers Guarantor name: ALETHARebecca KHOURYARNAUD Health Plan Information #: 1 [facility] Member Number: [id number] Policy Number: NA Group Number: [id number] Health Plan Information #: 2 Payer: [employer] POS Member Number: [id number] Policy Number: NA Group Number: NA
--- OUTSIDE RECORDS SUMMARY | 2024-09-25 19:38 | XMS_ITS | Patient Health Record ---
Author Organization 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 Name Role Phone Juan Banks Primary Care Provider Unavailabl e ALLERGIES Allergen (clinical drug ingredient) Drug/Non Drug Allergy documented on EMR Reaction Allergy Type Onset Date Status lamotrigine LaMICtal dizziness Drug Allergy Activ e gabapentin Gabapentin Unknown Drug Allergy Activ e REASON FOR REFERRAL No Information MEDICATIONS Medication SIG (Take, Route, Frequency, Duration) Notes Start Date End Date Status Advair Diskus 500-50 MCG/ACT 1 puff Inhalation Twice a day Active traMADol HCl 50 MG 1 tablet as needed O rally Once a day Active Ciclopirox 8 % 1 application 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 [employer] ally to toenail Once a day for 365 days 10/31/2022 Active Albuterol Sulfate HFA 108 (90 Base) MCG/ACT 1 puff as needed Inhalation every 4 hrs Active Vitamin C 500 MG 1 tablet Orally Once a day Active oxyBUTYnin Chloride ER 5 MG 1 tablet Orally Once a day A ctive Omeprazole 40 MG 1 capsule 30 minutes before morning meal Orally Once a day Active Ibuprofen 800 MG 1 tablet with food o r milk as needed Orally every 8 hrs Active hydrOXYzine HCl 25 MG 1 tablet at bedtim e as needed Orally Once a day Active Folic Acid 1 MG 1 tablet Orally Once a day Active Ferrous Sulfate 325 (65 Fe) MG 1 tablet Orally Once a day A ctive Crestor 5 MG 1 tablet Orally Once a day Active Baclofen 10 MG 1 tablet as needed O rally Twice a day Active PLAN OF TREATMENT No Information Insurance Providers Payer Name Payer Address Payer Phone Subscriber Number Group Number Insured Name Patient Relationship to Insured Coverage Start Date Coverage End Date Cigna [address] [place] [phone] [id number] Carito Lam Self - patient is the insured MEDICAL (GENERAL) HISTORY Medical History History ICD Code acute gastric ulcer anxiety asthma basilar artery migraine bipolar disorder borderline personality disorder bilateral carpal tunnel syndrome chronic low back pain chronic mid back pain depression fibromyalgia gastric bypass operation GERD (gastroesophageal reflux disease) headache hematuria history of tobacco use hypercholesterolemia iron deficiency moderate somatic symptom disorder with p redominant pain morbid obesity with BMI of 40.0-44.9 neck pain nephrolithiasis ocular migraine PTSD (post-traumatic stress disorder) rhinitis vitamin B12 deficiency vitamin D deficiency COVID vaccinated X 2 ([place]) and [address] ([place]) Surgical History Surgery Date(Month/Year) hysterectomy 02/04/2015 bilateral carpal tunnel release gastric bypass operation spinal stimulator X 2 right achilles tendon repair back surgery 1999 1986 Hospitalization History Reason Date(Month/Year) (girl) 1990 (boy) 1986 gastric bypass hysterectomy 02/04/2015 back surgery
--- OUTSIDE RECORDS SUMMARY | 2024-09-25 19:38 | XMS_ITS ---
Author Name [facility] Organization Unknown Results Test Name/Text Value Interpretation Date Range Source Calcium SerPl-mCnc 9.7mg/dL Normal [id number] 8.7 - 10 .5 [facility] BUN SerPl-mCnc 14mg/dL Normal [id number] 8 - 21 [facility] CCT Creat SerPl-mCnc 0.7mg/dL Normal [id number] 0.4 - 1.1 [facility] GFR/BSA.pred SerPlBld DYB-DPY-LbTMdg 90 Normal [id number] 59 - [facility] Chloride SerPl-sCnc 102mmol/L Normal [id number] 98 - 10 7 [facility] BUN/Creat SerPl 20Ratio Normal [id number] 10 - 25 H [facility] CO2 SerPl-sCnc 27mmol/L Normal [id number] 22 - 33 [facility] CCT Anion Gap Bld-sCnc 13 Normal [id number] 7 - 17 [facility] Potassium SerPl-sCnc 3.7mmol/L Normal [id number] 3.4 - 5.3 [facility] Glucose SerPl-mCnc 67mg/dL Normal [id number] 65 - 99 [facility] Sodium SerPl-sCnc 142mmol/L Normal [id number] 136 - 145 [facility] Hgb A1c MFr Bld 5.7% Above high normal [id number] - 5 .7 [facility] Est. average glucose Bld gHb Est-mCnc 117mg/dL Normal [id number] [facility] INR PPP Normal [id number] [facility] COMMENT Normal [id number] [facility] Prothrombin time Normal [id number] 10 - 13.5 [facility] Neutrophils num Bld Auto 4.78Thou/uL Normal [id number] 2 - 7.5 [facility] Monocytes num Bld Auto 0.41Thou/uL Normal [id number] 0. 2 - 1.5 [facility] Eosinophil num Bld Auto 0.15Thou/uL Normal [id number] 0 - 0.7 [facility] WBC num Bld Auto 7.3Thou/uL Normal [id number] 4 - 11 [facility] MCHC RBC Auto-mCnc 31.7g/dL Normal [id number] 30 - 36 [facility] Monocytes/leuk NFr Bld Auto 5.6% Normal [id number] [facility] Hct VFr Bld Auto 42.3% Normal [id number] 35 - 47 [facility] RBC num Bld Auto 4.35Mil/uL Normal [id number] 4 - 5.4 [facility] RDW RBC Auto-Rto 12.4% Normal [id number] 11.5 - 14. 5 [facility] PMV Bld Auto 9.1fL Normal [id number] 7.5 - 12.[address] [facility] Eosinophil/leuk NFr Bld Auto 2.1% Normal [id number] [facility] MCH RBC Qn Auto 30.8pg Normal [id number] 27 - 31 [facility] Basophils/leuk NFr Bld Auto 1.5% Normal [id number] [facility] Basophils num Bld Auto 0.11Thou/uL Normal [id number] 0 - 0.2 [facility] Platelet num Bld Auto 348Thou/uL Normal [id number] 150 - 450 [facility] Neutrophils/leuk NFr Bld Auto 65.4% Normal [id number] [facility] MCV RBC Auto 97fL Normal [id number] 80 - 100 [facility] T Lymphocytes/leuk NFr Bld Auto 25% Normal [id number] [facility] Lymphocytes num Bld Auto 1.83Thou/uL Normal [id number] 1.5 - 4.5 [facility] Imm Granulocytes/leuk NFr Bld Auto 0.4% Normal [id number] [facility] Hgb Bld-mCnc 13.4g/dL Normal [id number] 11.7 - 15.7 [facility] Imm Granulocytes num Bld Auto 0.03Thou/uL Normal [id number] 0 - 0.1 [facility] Anticoagulant Normal [id number] [facility] History of Medication Use Medication Directions Dispensed Refills Start Date End Date [facility] oxyCODONE (ROXICODONE) 5 MG immediate release tablet Take 1 tablet (5 mg total) by mouth 4 times daily (every 6 hours) as needed for moderate pain or severe pain. Max Daily Amount: 20 mg 09/04/2024 10/15/9999 active Multiple Vitamin (multivitamin) capsule Take 1 capsule by mouth daily. 07/13/2024 active folic acid (FOLVITE) 1 MG tablet Take 1 tablet (1 mg total) by mouth. 07/02/2024 active ibuprofen (MOTRIN) 800 mg tablet Take 1 tablet (800 mg total) by mouth. 07/02/2024 active rosuvastatin (CRESTOR) 5 MG tablet Take 5 mg by mouth every morning. Take this medication the morning of surgery. 07/27/2022 active nitrofurantoin (MACRODANTIN) 100 MG capsule TAKE 1 CAPSULE BY MOUTH TWICE A DAY FOR 5 DAYS 09/27/2022 active Cannabis (MARIJUANA) [facility] Strength Take by mouth daily as needed. 07/27/2022 active oxybutynin (DITROPAN-XL) 5 MG 24 hr tablet TAKE 1 TABLET BY MOUTH EVERYDAY AT BEDTIME 09/27/2022 active ascorbic acid (VITAMIN C) 1000 MG tablet Take 1 tablet (1,000 mg total) by mouth daily. Do not start before January 26, 2022. 07/27/2022 active OMEprazole (PriLOSEC) 40 MG capsule Take 40 mg by mouth every morning before breakfast. Take this medication the morning of surgery. 07/27/2022 active ondansetron (ZOFRAN) 4 MG tablet 07/27/2022 active cephALEXin (KEFLEX) 250 mg capsule Take 3 capsules (750 mg total) by mouth 3 (three) times a day. 07/27/2022 active diazepam (VALIUM) 10 MG tablet Take 1 tablet (10 mg total) by mouth 4 times daily (every 6 hours) as needed for anxiety (Take 1 tablet 2 hours before MRI). 07/27/2022 active diclofenac (VOLTAREN) 1 % gel Apply topically 4 (four) times a day. Apply 1-2 grams to affected area 07/27/2022 active sulfamethoxazole-trim ethoprim (BACTRIM DS,SEPTRA DS) 800-160 MG per tablet Take 1 tablet by mouth every 12 (twelve) hours around the clock. 07/27/2022 active traMADol (ULTRAM) 50 MG tablet Take 50 mg by mouth. 07/27/2022 active OMEprazole (PriLOSEC) 40 MG capsule Take 1 capsule by mouth. 09/27/2022 active Ascorbic Acid (Vitamin C) 500 MG Cap Take 500 mg by mouth. 02/22/2023 aborted oxybutynin (DITROPAN-XL) 5 MG 24 hr tablet Take 1 tablet by mouth. 02/22/2023 aborted baclofen (LIORESAL) 10 MG tablet Take 1 tablet (10 mg total) by mouth 3 (three) times a day. 07/27/2022 active hydrOXYzine HCl (ATARAX) 25 MG tablet TAKE 2 TABLETS BY MOUTH DAILY AT BEDTIME 09/27/2022 active ferrous sulfate 325 (65 FE) MG tablet Take 325 mg by mouth. 02/22/2023 active senna-docusate (SENNA-S) 8.6-50 MG Take 2 tablets by mouth nightly. 07/27/2022 active ibuprofen (MOTRIN) 800 mg tablet Take 1 tablet by mouth. 07/27/2022 active baclofen (LIORESAL) 10 MG tablet Take 1 tablet by mouth. 02/22/2023 aborted albuterol (PROVENTIL HFA; VENTOLIN HFA) 108 (90 Base) MCG/ACT inhaler 2 puffs as needed. 07/27/2022 active ADVAIR DISKUS 500-50 MCG/DOSE diskus inhaler Take 1 insert by mouth 2 (two) times a day. Take this medication the morning of surgery. 07/27/2022 active HYDROmorphone (DILAUDID) 2 MG tablet Take 1 tablet (2 mg total) by mouth every 3 (three) hours as needed for moderate pain. Max Daily Amount: 16 mg 07/27/2022 active acetaminophen (TYLENOL) 325 MG tablet Take 3 tablets (975 mg total) by mouth every 8 (eight) hours around the clock. 07/27/2022 active LORazepam (ATIVAN) 0.5 MG tablet Take 0.5 mg by mouth 3 (three) times a day as needed. for anxiety 07/27/2022 active lidocaine (LIDODERM) 5 % patch APPLY 1 PATCH ON THE SKIN DAILY AND LEAVE ON FOR 12 HOURS, THEN REMOVE. PATCH MAY REMAIN ON SKIN FOR 12 HOURS PER DAY 07/27/2022 active Problems Problem Status Onset Date Problem Type Date of Resoluti on Source Lumbar radiculopathy active 2019-03-15 [facility] Chronic midline low back pain without sciatica active 2021-12-24 ProblemAct [facility] Asthma active 2024-07-10 ProblemAct [facility] Anxiety active 2024-07-10 ProblemAct [facility] Pain associated with wound active 2021-07-05 ProblemAct [facility] Status post insertion of spinal cord stimulator active 2019-03-15 ProblemAct [facility] Sacroiliitis active 2019-05-31 ProblemAct [facility] GERD (gastroesophageal reflux disease) active 2024-07-10 ProblemAct [facility] Marijuana use active 2024-07-10 ProblemAct [facility] T Morbid obesity active 2024-07-[address] Postoperative visit active 2020-05-09 ProblemAct [facility] Trochanteric bursitis of both hips active 2019-09-09 ProblemAct [facility] Hyperlipidemia active 2024-07-[address] Spinal arachnoid cyst active 2022-06-27 ProblemAct [facility] Postlaminectomy syndrome, cervical region active 2020-05-06 ProblemAct [facility] Vaping nicotine dependence, non-tobacco product active 2024-07-10 ProblemAct [facility] Immunizations Vaccine Date Source Lot Number Status Covid-19 MRNA Vaccine - Pfiz er 12+ (Purple Cap) 02/08/2021 CC [id number] completed Influenza (AFLURIA/FLUZONE) Inactivated/Split Quadrivalent with Preservative IM 07/21/2015 CCT UNK completed Influenza (AFLURIA/FLUZONE) Inactivated/Split Quadrivalent with Preservative IM 08/13/2021 CC [id number] completed Influenza (AFLURIA/FLUZONE) Inactivated/Split Quadrivalent with Preservative IM 06/25/2018 CCT [id number] completed Influenza (AFLURIA/FLUZONE) Inactivated/Split Quadrivalent with Preservative IM 08/14/2014 CCT UNK completed Pneumococcal Polysaccharide 23-Valent 09/02/2015 CCT [id number] completed Influenza (AFLURIA/FLUZONE) Inactivated/Split Quadrivalent with Preservative IM 07/17/2017 CCT [id number] completed Influenza (AFLURIA/FLUZONE) Inactivated/Split Quadrivalent with Preservative IM 10/02/2013 CCT [id number] completed Tdap 01/18/2021 [facility] [id number] completed Influenza (AFLURIA/FLUZONE) Inactivated/Split Quadrivalent with Preservative IM 07/10/2014 [facility] [id number] completed Covid-19 MRNA Vaccine - Pfiz er 12+ (Purple Cap) 03/01/2021 [facility] [id number] completed Influenza (AFLURIA/FLUZONE) Inactivated/Split Quadrivalent with Preservative IM 08/09/2016 [facility] [id number] completed Influenza Inactivated/Split Preservative Free IM 06/25/2018 [facility] [id number] completed Influenza Inactivated/Split Preservative Free IM 06/28/2019 [facility] completed Influenza Inactivated/Split Preservative Free IM 06/05/2020 [facility] completed
--- OUTSIDE RECORDS SUMMARY | 2024-09-25 19:38 | XMS_ITS ---
Author Organization [facility] Address [address] [address] Care Team Providers Care Maintenance Department Manager Name Role Phone Juan Banks Primary Care Provider GLADYS Avelar Unavailable [phone] REASON FOR VISIT 6 month f/u.. Patient needs to see [place] Encounters Encounter Location Date Provider Diagnosis [facility] [address] [address] 04/26/2023 GLADYS COHEN PLAN OF TREATMENT No Information Progress Notes * Trace LARESaDOB:1970 ( 54 yo F)Acc No.[id number]:04/26/2023 Progress Note Patient:??Carito LARES Provider:??Gladys López DPMillicent :1970?Age:53 Y?Sex:Fe male Date:04/26/2023 Address:[address] , [id number] Pcp:Juan Banks Subjective: * Chief Complaints: * ?1. 6 month f/u.. Patie nt needs to see [place]. * Medical History:?? Objective: Assessment: Plan: * Treatment: * Billing Information: * Visit Code:?? * Procedure Codes:?? * Sign off status: Pending * Provider:??Gladys López DPM Date:??09/2023
--- OUTSIDE RECORDS SUMMARY | 2024-09-25 19:38 | XMS_ITS ---
Author Organization [facility] Address [address] [address] Care Team Providers Care System Development Engineer Name Role Phone Juan Banks Primary Care Provider GLADYS Avelar Unavailable [phone] REASON FOR VISIT 6 month f/u.. Patient needs to see [place] MEDICATIONS Medication SIG (Take, Route, Frequency, Duration) Notes Start Date End Date Status Vitamin C 500 MG 1 tablet Orally Once a day Active traMADol HCl 50 MG 1 tablet as needed O rally Once a day Active Ciclopirox 8 % 1 application Snag Grinder ally to toenail Once a day for 365 days 10/31/2022 Active oxyBUTYnin Chloride ER 5 MG 1 tablet Orally Once a day A ctive Omeprazole 40 MG 1 capsule 30 minutes before morning meal Orally Once a day Active Albuterol Sulfate HFA 108 (90 Base) MCG/ACT 1 puff as needed Inhalation every 4 hrs Active Advair Diskus 500-50 MCG/ACT 1 puff Inhalation Twice a day Active Ferrous Sulfate 325 (65 Fe) MG 1 tablet Orally Once a day A ctive Crestor 5 MG 1 tablet Orally Once a day Active Baclofen 10 MG 1 tablet as needed O rally Twice a day Active Ibuprofen 800 MG 1 tablet with food o r milk as needed Orally every 8 hrs Active hydrOXYzine HCl 25 MG 1 tablet at bedtim e as needed Orally Once a day Active Folic Acid 1 MG 1 tablet Orally Once a day Active Encounters Encounter Location Date Provider Diagnosis [facility] [address] [address] 04/25/2023 GLADYS COHEN PLAN OF TREATMENT No Information Progress Notes * Cody LARES:1970 ( 54 yo F)Acc No.[id number]:04/25/2023 Progress Note Patient:??Carito LARES Provider:??Gladys López DPM :1970?Age:53 Y?Sex:Fe male Date:04/25/2023 Address:[address] [place] [address] , [place], [id number] Pcp:Juan Banks Subjective: * Chief Complaints: * ?1. 6 month f/u.. Yoli nt needs to see [place]. * Medical History:?? * Medications:??Taking Vitamin C 500 MG Tablet 1 tablet Orally Once a day , Taking traMADol HCl 50 MG Tablet 1 tablet as needed Orally Once a day , Taking oxyBUTYnin Chloride ER 5 MG Tablet Extended Release 24 Hour 1 tablet Orally Once a day , Taking Omeprazole 40 MG Capsule Delayed Release 1 capsule 30 minutes before morning meal Orally Once a day , Taking Ibuprofen 800 MG Tablet 1 tablet with food or milk as needed Orally every 8 hrs , Taking hydrOXYzine HCl 25 MG Tablet 1 tablet at bedtime as needed Orally Once a day , Taking Folic Acid 1 MG Tablet 1 tablet Orally Once a day , Taking Ferrous Sulfate 325 (65 Fe) MG Tablet 1 tablet Orally Once a day , Taking Crestor 5 MG Tablet 1 tablet Orally Once a day , Taking Baclofen 10 MG Tablet 1 tablet as needed Orally Twice a day , Taking Albuterol Sulfate HFA 108 (90 Base) MCG/ACT Aerosol Solution 1 puff as needed Inhalation every 4 hrs , Taking Advair Diskus 500-50 MCG/ACT Aerosol Powder Breath Activated 1 puff Inhalation Twice a day , Taking Ciclopirox 8 % Solution 1 application Externally to toenail Once a day Objective: Assessment: Plan: * Treatment: * Billing Information: * Visit Code:?? * Procedure Codes:?? * Sign off status: Pending * Provider:??Gladys López DPM Date:??08/2023
== END 2024-09-24 10:20 | disposition home or self-care (01) ==
PROVIDERS: PCP Internal Medicine; Visit Provider Nurse Practitioner Family
DX: M96.1 Postlaminectomy syndrome, not elsewhere classified (principal); M53.3 Sacrococcygeal disorders, not elsewhere classified; M70.61 Trochanteric bursitis, right hip; M70.62 Trochanteric bursitis, left hip; M54.50 Low back pain, unspecified; G89.29 Other chronic pain; M51.369 Other intervertebral disc degeneration, lumbar region without mention of lumbar back pain or lower extremity pain
CPT/HCPCS: 99213

== ENCOUNTER 2025-01-24 10:15 | Outpatient (REF) | payer OTHER, SELFPAY ==
--- NOTE | ~2025-01-24 | XR_ITS ---
CLINICAL HISTORY: M70.61 - Trochanteric bursitis, right hip 5 view, pelvis and right hip Comparison: None Findings: No acute fracture or dislocation. No significant arthritic change. Battery pack in the left lower quadrant. Posterior fusion at L4-L5. IMPRESSION: No acute findings. This document has been electronically signed by: Sona Johnson MD on 01/24/2025 21:55:15
--- OUTSIDE RECORDS SUMMARY | 2025-01-24 11:04 | XMS_ITS | Clinical Summary ---
Author Organization [facility] Address [address] [place] [address] Care Team Providers Care Matcher Name Role Phone Juan Banks MD Primary Care Provider [phone] Alexandru Villatoro MD Unavailable [phone] Yara Martinez Unavailable [phone] Allergies Active Allergy Reactions Criticality Noted Date Comments Gabapentin Other (See Comments) Medium 05/06/2020 Pt states it is not good for her mentally - pt has been hospitalized after taking this med Lamotrigine Other (See Comments),Delirium/Con fusion/Psychosis High 04/27/2020 Dizziness/fuzzy head Medications Medication Sig Dispensed Refills Start Date End Date Status ADVAIR DISKUS 500-50 MCG/DOSE diskus inhaler Take 1 insert by mouth 2 (two) times a day. Take this medication the morning of surgery. 1 01/15/2019 Active OMEprazole (PriLOSEC) 40 MG capsule Take 1 capsule (40 mg total) by mouth every morning before breakfast. Take this medication the morning of surgery. 2 05/21/2019 Active rosuvastatin (CRESTOR) 5 MG tablet Take 1 tablet (5 mg total) by mouth every morning. Take this medication the morning of surgery. Active albuterol (PROVENTIL HFA; VENTOLIN HFA) 108 (90 Base) MCG/ACT inhaler 2 puffs as needed. 06/01/2021 Active LORazepam (ATIVAN) 0.5 MG tablet Take 1 tablet (0.5 mg total) by mouth 3 (three) times a day as needed. for anxiety 08/27/2021 Active acetaminophen (TYLENOL) 325 MG tabletIndication s:Status post insertion of spinal cord stimulator Take 3 tablets (975 mg total) by mouth every 8 (eight) hours around the clock. 270 tablet 01/25/2022 Active senna-docusate (SENNA-S) 8.6-50 MGIndications:St atus post insertion of spinal cord stimulator Take 2 tablets by mouth nightly. 60 tablet 01/25/2022 Active Additional Information Patient taking differently:2 tablet OralAs needed, Reason: Other, Reported on 07/04/2024 ibuprofen (MOTRIN) 800 mg tablet Take 1 tablet (800 mg total) by mouth. 01/20/2022 Active hydrOXYzine HCl (ATARAX) 25 MG tablet TAKE 2 TABLETS BY MOUTH DAILY AT BEDTIME 06/28/2022 Active oxybutynin (DITROPAN-XL) 5 MG 24 hr tablet TAKE 1 TABLET BY MOUTH EVERYDAY AT BEDTIME 09/19/2022 Active traMADol (ULTRAM) 50 MG tablet Take 1 tablet (50 mg total) by mouth as needed. 07/20/2022 Active ferrous sulfate 325 (65 FE) MG tablet Take 1 tablet (325 mg total) by mouth daily. 10/21/2022 Active diclofenac (VOLTAREN) 1 % gelIndications:T rochanteric bursitis of both hips Apply topically 4 (four) times a day. Apply 1-2 grams to affected area 100 g 1 02/20/2023 Active lidocaine (LIDODERM) 5 % patchIndications :Arthrodesis status APPLY 1 PATCH ON THE SKIN DAILY AND LEAVE ON FOR 12 HOURS, THEN REMOVE. PATCH MAY REMAIN ON SKIN FOR 12 HOURS PER DAY 90 patch 02/23/2023 Active folic acid (FOLVITE) 1 MG tablet Take 1 tablet (1 mg total) by mouth daily. 02/09/2024 Active Multiple Vitamin (multivitamin) capsule Take 1 capsule by mouth daily. Active Ascorbic Acid (VITAMIN C PO) Take by mouth daily. Active oxyCODONE (ROXICODONE) 5 MG immediate release tabletIndication s:Battery end of life of spinal cord stimulator,Statu s post insertion of spinal cord stimulator Take 1 tablet (5 mg total) by mouth 4 times daily (every 6 hours) as needed for moderate pain or severe pain. Max Daily Amount: 20 mg 28 tablet 07/19/2024 Active baclofen (LIORESAL) 10 MG tablet 1 tablet (10 mg total) by Mouth/Oral Cavity route 3 times a day. 07/24/2024 Active Ascorbic Acid (Vitamin C) 500 MG Cap Take 500 mg by mouth. 10/21/2022 3 Discontinue d(Therapy completed) Active Problems Problem Noted Date Diagnosed Date GERD (gastroesophageal reflux disease) 4 Overview (07/10/2024): related surgery/ulcer Assessment & Plan (07/10/2024 1:03 PM EDT): Well-controlled and managed with medication. Continue current medication regimen as prescribed. Continue plan as previously directed by your provider. Hyperlipidemia 07/10/2024 Assessment & Plan (07/10/2024 1:04 PM EDT): Compliant with statin therapy. Continue current medication regimen as prescribed. Continue plan as previously directed by your provider.; Anxiety 07/10/2024 Assessment & Plan (07/10/2024 1:04 PM EDT): Maintained on daily regimen. Continue current medication regimen as prescribed. Patient to follow up with provider as previously directed. Asthma 07/10/2024 Assessment & Plan (07/10/2024 1:05 PM EDT): Medication compliant with inhaler therapy. No recent flares or hospitalizations. Continue current medication regimen as prescribed. Continue plan as previously directed by your provider. Morbid obesity 07/10/2024 Assessment & Plan (07/10/2024 1:05 PM EDT): Diet, exercise and lifestyle modifications. Marijuana use 07/10/2024 Assessment & Plan (07/10/2024 1:06 PM EDT): Discussed cannabis cessation at least 7 days prior to surgery date. Discussed increased Cardiac risks of cannabis use in the perioperative period including, but not limited to, heart attack or cardiac arrest. Vaping nicotine dependence, non-tobacco product 07/10/2024 Assessment & Plan (07/10/2024 1:07 PM EDT): Discussed vaping cessation with patient at least 7 days prior to surgery date. Discussed risks of vaping including, but not limited to, delayed wound healing and increased risk of infection. Spinal arachnoid cyst 06/27/2022 Chronic midline low back pain without sciatica 0 12/24/2021 Pain associated with wound 07/05/2021 Postoperative visit 05/09/2020 Postlaminectomy syndrome, cervical region 2019 Trochanteric bursitis of both hips 09/09/2019 Sacroiliitis 05/31/2019 Postlaminectomy syndrome of lumbar region 2018 Status post insertion of spinal cord stimulator 03/15/2019 Lumbar radiculopathy 03/15/2019 Immunizations Name Administration Dates Next Due Covid-19 MRNA Vaccine - Pfiz er 12+ (Purple Cap) 03/01/2021,02/08/2021 Influenza (AFLURIA/FLUZONE) Inactivated/Split Quadrivalent with Preservative IM 08/13/2021,06/25/2018,07/17/2017,08/09,07/21/2015,08/14/2014,07/10/2014 ,10/02/2013 Influenza Inactivated/Split Preservative Free IM 06/05/2020,06/28/2019,06/25/2018 Pneumococcal Polysaccharide 23-Valent 09/02/2015 Tdap 01/18/2021 Family History Medical History Relation Name Comments Heart attack Brother Heart disease Brother Hyperlipidemia Brother Hypertension Brother Thyroid disease Brother Diabetes Father Heart attack Father Heart disease Father Hypertension Father Stroke Father Depression Mother Hyperlipidemia Mother Thyroid disease Mother Cancer Sister 1 Diabetes Sister 1 Hypertension Sister 1 Thyroid disease Sister 1 Inflammatory bowel disease Sister 2 Relation Name Status Comments Brother Alive Daughter Alive Father Mother Alive Other Alive Sister 1 Alive Sister 2 Alive Sister 3 Alive Sister 4 Alive Son Alive Social History Tobacco Use Types Packs/Day Years Used Date Smoking Tobacco: Former Cigarettes Q uit: 2013 Smokeless Tobacco: Never Tobacco Cessation:Counseling Given: Not Answered Comments:Stopped 7-8 years ago Vapes, but no nicotine in vape Alcohol Use Standard Drinks/Week Comments Not Currently 0 (1 standard drink = 0.6 oz pur e alcohol) AUDIT-C Answer Date Recorded Q1: How often do you have a drink containing alcohol? Never 07/04/2024 Q2: How many drinks containi ng alcohol do you have on a typical day when you are drinking? Patient does not drink Q3: How often do you have si x or more drinks on one occasion? Never 07/04/2024 Sex and Gender Information Value Date Recorded Sex Assigned at Female 07/19/2024 7:58 AM EDT Gender Identity Female 08/27/2021 7:16 AM EST Sexual Orientation Not on file Last Filed Vital Signs Vital Sign Reading Time Taken Comments Blood Pressure 120/79 09/02/2024 10:47 AM EST Pulse 88 09/02/2024 10:47 AM EST Temperature 36.7 ??C (98 ??F) 09/02/2024 10:47 AM EST Respiratory Rate 20 07/19/2024 11:30 AM EDT Oxygen Saturation 98% 09/02/2024 10:47 AM EST Inhaled Oxygen Concentration - - Weight 113 kg (250 lb) 09/02/2024 10:47 AM EST Height 163.8 cm (5' 4.49 ) 09/02/2024 10:[address] Body Mass Index 42.27 09/02/2024 10:47 AM EST Plan of Treatment Health Maintenance Due Date Last Done Comments Hepatitis C Virus Screening 1971 HIV Screening 01/25/1984 Hepatitis B Vaccines (1 of 3 - 19+ 3-dose series) 1990 Pap Smear (Ages 21-65) 01/25/1992 Mammogram 2011 Colonoscopy 01/25/2016 Pneumococcal Vaccines 50+ (2 of 2 - PCV) 09/02/2016 09/02/2015 Zoster (Shingles) Vaccine (1 of 2) 2021 Influenza Vaccine 05/16/2024 07/08/2022, , 08/13/2021, Additional history exists COVID-19 Vaccine (3 - 2023-2 5 season) 2024 03/01/2021, 02/08/2021 DTaP/Tdap/Td Vaccines (2 - T d or Tdap) 01/18/2031 01/18/2021 Chronic Controlled Substance Toxicology Screening Discontinued 06/05/2019, 05/31/2019, 03/31/2019 Chronic Controlled Substance User PDMP Review Discontinued 03/10/2023, 05/31/2019 Medical Devices Implanted Type Area Brush Filler Hand Device Identifier Shelf Expiration Date Model / Serial / Lot Nail/Sachin Nail/Sachin Back Description:4 rods implanted Spinal Cord Stimulator Stimulator [id number] Lead Neurostimulator 60cm 5mm Vectris 1x8 Electrode Tr - [id number] Implanted:Qty: 1 on 12/26/2019 by Mohan Richard MD at [facility] Stimulator N/A: Back [employer] MINIMALLY INVASIVE T 10/28/2023 [id number] / / [id number] Lead Neurostimulator 60cm 5mm Vectris 1x8 Electrode Trl - [id number] Implanted:Qty: 1 on 12/26/2019 by Mohan Richard MD at [facility] Stimulator N/A: Back [employer] MINIMALLY INVASIVE T 10/29/2023 [id number] / / [id number] Neurostimulator Implantable Chrnc Pain Rs2 - [id number] Implanted:Qty: 1 on 05/06/2020 by Alexandru Villatoro MD at [facility] Stimulator Left: Buttocks [employer] MINIMALLY INVASIVE T 02/10/2021 [id number] / [id number] / [id number] Neurostimulator Implant Primeadvanced Surescan Mri - [id number] Implanted:Qty: 1 on 09/15/2021 by Alexandru Villatoro MD at [facility] Stimulator Left: Buttocks [employer] MINIMALLY INVASIVE T 11/12/2021 [id number] / [id number] / [id number] Adult Caregiver Neurostimulator Mystim Mri [facility] Extension - [id number] Implanted:Qty: 1 on 09/15/2021 by Alexandru Villatoro MD at [facility] Stimulator [employer] MINIMALLY INVASIVE T [id number] / [id number] / [id number] Envelope Absorbable Lg 3.35x3in Polyarylate Minocycline - [id number] Implanted:Qty: 1 on 09/15/2021 by Alexandru Villatoro MD at [facility] Tissue Left: Buttocks [employer] MINIMALLY INVASIVE T 04/24/2022 [id number] / / [id number] Vectris Tm Surescan Mri Lead Kit For Spinal Cord Stimulation Implanted:Qty: 1 on 05/06/2020 by Alexandru Villatoro MD at [facility] Spine Thoracic [employer] MINIMALLY INVASIVE T 07/23/2023 [id number] / / [id number] Vectris Tm Surescan Mri Lead Kit For Spinal Cord Stimulation Implanted:Qty: 1 on 05/06/2020 by Alexandru Villatoro MD at [facility] Spine Thoracic [employer] MINIMALLY INVASIVE T 11/07/2023 [id number] / / [id number] Extension Lead 40cm Implanted:Qty: 1 on 07/15/2021 by Alexandru Villatoro MD at [facility] [employer] MINIMALLY INVASIVE T [id number] / [id number] / Extension Kit 40cm Implanted:Qty: 1 on 07/15/2021 by Alexandru Villatoro MD at [facility] [employer] MINIMALLY INVASIVE T [id number] / [id number] / Specify Surescan Mri 2x8 Implanted:Qty: 1 on 2022 by Alexandru Villatoro MD at [facility] [employer] MINIMALLY INVASIVE T 01/19/2025 [id number] / / [id number] Vanta Adaptivestim Implanted:Qty: 1 on 07/19/2024 by Alexandru Villatoro MD at [facility] N/A: Back Explanted Type Area Brush Filler Hand Device Identifier Shelf Expiration Date Model / Serial / Lot [id number] Kit Accessory .133in Injex Brianna Baso4 Biwing Flexible Removal - [id number] Explanted:Qty: 1 on 12/26/2019 at [facility] Stimulator [employer] MINIMALLY INVASIVE T [id number] / / [id number] C-Armor Explanted:Qty: 1 on 12/26/2019 at [facility] Other [id number] / / Description:Carlosarmharesh bangura, n ot an implant (not implanted or explanted) only way to charge for it in [facility] C-Arm Drape Explanted:Qty: 2 on 12/26/2019 at [facility] Radiant Zemax [id number] / / Description:not an implant, c-arm drape, only way of charging in [facility] Wireless Externa Neurostimulator Explanted:Qty: 1 on 12/26/2019 by Mohan Richard MD at [facility] N/A: Back [employer] MINIMALLY INVASIVE T [id number] / / [id number] Description:not an implant, only way to charge in [facility] External Neurostimulator Boot Explanted:Qty: 1 on 12/26/2019 by Mohan Richard MD at [facility] N/A: Back [employer] MINIMALLY INVASIVE T [id number] / / [id number] Description:Not an implant, only way to charge for in [facility] Procedures Procedure Name Priority Date/Time Associated Diagnosis Comments DRUG MONITORING,OPIATES EXPANDED,QUANT,W/ME DMATCH,URINE Routine 06/05/2019 4:18 PM EDT Chronic pain syndrome Opioid type dependence, continuous (HCC) from Last 3 Months or Most Recently Relevant to Health Maintenance Results * (ABNORMAL) Drug Monitoring,Opiates Expanded,Quant w/medMATCH,Urine (06/05/2019 4:18 PM EDT) Presribed Drug [address] [facility] Codeine NEGATIVE <50 ng/mL [facility] Comment:See Note 1 medMATCH Codeine CONSISTENT [facility] Hydrocodone NEGATIVE <50 ng/mL [facility] Comment:See Note 1 medMATCH Hydrocodone CONSISTENT [facility] Hydromorphone NEGATIVE <50 ng/mL [facility] Comment:See Note 1 medMATCH Hydromorphone CONSISTENT [facility] Morphine NEGATIVE <50 ng/mL [facility] Comment:See Note 1 medMATCH Morphine CONSISTENT Q [facility] Norhydrocodone NEGATIVE <50 ng/mL [facility] Comment:See Note 1 medMATCH Norhydrocodone CONSISTENT [facility] Noroxycodone, Urine NEGATIVE <50 ng/mL [facility] Comment:See Note 1 medMATCH Noroxycodone INCONSISTENT( A) [facility] Oxycodone NEGATIVE <50 ng/mL [facility] Comment:See Note 1 medMATCH Oxycodone INCONSISTENT( A) [email or web address] Oxymorphone NEGATIVE <50 ng/mL [facility] Comment:See Note 1 medMATCH Oxymorphone INCONSISTENT( A) [email or web address] Manny [facility] Comment: See Note 2 Note 1 This test was developed and its analytical performance characteristics have been determined by [facility]. It has not been cleared or approved by the FDA. This assay has been validated pursuant to the CLIA regulations and is used for clinical purposes. Note 2 This drug testing is for medical treatment only. ?? Analysis was performed as non-forensic testing and these results should be used only by healthcare providers to render diagnosis or treatment, or to monitor progress of medical conditions. medMATCH comments are: - present when drug test results may be the result of ?? metabolism of one or more drugs or when results are ?? inconsistent with prescribed medication(s) listed. - may be blank when drug results are consistent with ?? prescribed medication(s) listed. For assistance with interpreting these drug results, please contact a [facility] Toxicology Specialist: [phone] TOX ( ), M-F, 8am-6pm EST. Specimen from unspecified body site / Unknown 06/05/2019 4:18 PM EDT 06/07/2019 2:58 AM EDT Narrative Resulting Agency Comment Performing Organization Information: ?Site ID: [id number] ?Name: [employer] ?Address: [address] [place] [address], [place] [address] ?Director: Ashley Kelly MD Yara Ocampo APRN URINE ORDERABLES [employer] [facility] [place] [address], [place] [address] from Last 3 Months or Most Recently Relevant to Health Maintenance Advance Directives * Full Code (Latest Code Status on File) Date Activated Date Inactivated Comments 07/19/2024 8:55 AM * Full Code Date Activated Date Inactivated Comments 2022 8:53 PM 07/19/2024 8:00 AM * Full Code Date Activated Date Inactivated Comments 2022 11:41 AM 2022 8:53 PM * Full Code Date Activated Date Inactivated Comments 09/15/2021 10:31 AM 2022 11:32 AM * Full Code Date Activated Date Inactivated Comments 07/15/2021 10:09 AM 09/15/2021 10:13 AM Care Teams Matcher Relationship Specialty Start Date End Date Juan Banks MD [address] [place] [address] PCP - General Internal Medicine 03/15/19 Alexandru Villatoro MD [address] [place] [id number] Surgery, Neurosurgery 04/27/20 Yara Martinez PA [address] [place] [address] [address] [place] [address] Physician Library Aide Pain Medicine 01/11/22
--- OUTSIDE RECORDS SUMMARY | 2025-01-24 11:04 | XMS_ITS | Encounter Summary ---
Author Organization [facility] Address [address] [place] [address] Care Team Providers Care Vending Machine Operator Name Role Phone Juan Banks MD Primary Care Provider [phone] Alexandru Villatoro MD Unavailable [phone] Yara Martinez Unavailable Encounter Details Date Type Department Care Team (Late st Contact Info) Description 05/01/2020 Prep for Surgery [facility] [place] [address] [facility] 2nd Floor [address] [place] [phone] Cici Montano APRN [address] [place], [place] [id number] Preop testing (Primary Dx) Social History Tobacco Use Types Packs/Day Years Used Date Smoking Tobacco: Former Cigarettes Q uit: 2013 Smokeless Tobacco: Never Alcohol Use Standard Drinks/Week Comments Not Currently 0 (1 standard drink = 0.6 oz pur e alcohol) Sex and Gender Information Value Date Recorded Sex Assigned at Female 07/19/2024 7:58 AM EDT Gender Identity Female 08/27/2021 7:16 AM EST Sexual Orientation Not on file COVID-19 Exposure Response Date Recorded In the last month, have you been in contact with someone who was confirmed or suspected to have Coronavirus / COVID-19? No / Unsure 05/01/2020 2:11 PM EDT documented as of this encounter Plan of Treatment Not on file documented as of this encounter Results * COVID-19 (SARS-COV-2) Lab Request (05/02/2020 9:49 AM EDT) COVID-19 (SARS-CoV-2) Specimen received and test ordered for designated performing laboratory. HOSPITAL LAB Microbiology Nasopharyngeal swab / Unknown 05/02/2020 9:49 AM EDT 05/02/2020 4:35 PM EDT Cici Montano APRN MICROBIOLOGY - GENER AL ORDERABLES Performing Organization Address City/State/[facility] Co de Phone Number HOSPITAL LAB documented in this encounter Visit Diagnoses Diagnosis Preop testing- Primary Unspecified pre-operative examination documented in this encounter Care Teams Vending Machine Operator Relationship Specialty Start Date End Date Juan Banks MD [address] [place] [address] PCP - General Internal Medicine 03/15/19 Alexandru Villatoro MD [address] [place] [address] Surgery, Neurosurgery 04/27/20 Yara Martinez PA [address] [place] [address] Physician Hcc Coders Pain Medicine 01/11/22 documented as of this encounter
--- OUTSIDE RECORDS SUMMARY | 2025-01-24 11:04 | XMS_ITS | Encounter Summary ---
Author Organization [facility] Address [address] [place] [address] Care Team Providers Care Cook Manager Name Role Phone Juan Banks MD Primary Care Provider Edmar Vallecillo PhD Unavailable [phone] Alexandru Villatoro MD Unavailable [phone] Yara Martinez Unavailable Encounter Details Date Type Department Care Team (Late st Contact Info) Description 05/07/2019 Scanned Document [facility] Neurosurgery [place] [address] [facility] [address] [place] [phone] Alexandru Villatoro MD [address] [facility] [address] [place] [phone] Social History Tobacco Use Types Packs/Day Years Used Date Smoking Tobacco: Never Assessed Sex and Gender Information Value Date Recorded Sex Assigned at Female 07/19/2024 7:58 AM EDT Gender Identity Female 08/27/2021 7:16 AM EST Sexual Orientation Not on file documented as of this encounter Plan of Treatment Not on file documented as of this encounter Visit Diagnoses Not on filedocumented in this encounter Care Teams Cook Manager Relationship Specialty Start Date End Date Juan Banks MD [address] [place] [address] PCP - General Internal Medicine 03/15/19 Edmar Vallecillo, PhD Needs valid address Clinical Psychologist Psychology 07/16/19 04/26/20 Alexandru Villatoro MD [address] [place] [address] Surgery, Neurosurgery 04/27/20 Yraa Martinez PA [address] [place] [phone] Physician Mill Laborer Pain Medicine 01/11/22 documented as of this encounter
--- OUTSIDE RECORDS SUMMARY | 2025-01-24 11:04 | XMS_ITS | Encounter Summary ---
Author Organization [facility] Address [address] [place] [address] Care Team Providers Care Awning Frame Maker Name Role Phone Juan Banks MD Primary Care Provider [phone] Alexandru Villatoro MD Unavailable [phone] Yara Martinez Unavailable [phone] Encounter Details Date Type Department Care Team (Late st Contact Info) Description 05/02/2022 Scanned Document [facility] Neurosurgery [place] [address] [facility] [address] [place] [phone] Neurosurgery, Scan Social History Tobacco Use Types Packs/Day Years Used Date Smoking Tobacco: Former Cigarettes Q uit: 2013 Smokeless Tobacco: Never Comments:Stopped 7-8 years a go Alcohol Use Standard Drinks/Week Comments Not Currently [...] on filedocumented in this encounter Care Teams Awning Frame Maker Relationship Specialty Start Date End Date Juan Banks MD [facility] [place] [address] PCP - General Internal Medicine 03/15/19 Alexandru Villatoro MD [address] [place] [address] [place] [address] Surgery, Neurosurgery 04/27/20 Yara Martinez PA [address] [place] [address] [address] [place] [address] Physician Actuarial Analyst Pain Medicine 01/11/22 documented as of this encounter
--- OUTSIDE RECORDS SUMMARY | 2025-01-24 11:04 | XMS_ITS | Encounter Summary ---
Author Organization [facility] Address [address] [place] [address] Care Team Providers Care Charge Master Coordinator Name Role Phone Juan Banks MD Primary Care Provider [phone] Alexandru Villatoro MD Unavailable [phone] Yara Martinez Unavailable Encounter Details Date Type Department Care Team (Late st Contact Info) Description 03/11/2022 [facility] Medical [facility] Neurosurgery [place] [address] [facility] [address] [place] [phone] Myla Appiah, PA-C [address] [place] [address] Social History Tobacco Use Types Packs/Day Years [...] Exposure Response Date Recorded In the last 10 days, have yo u been in contact with someone who was confirmed or suspected to have Coronavirus/COVID-19? No / Unsure 02/17/2022 9:37 AM EDT documented as of this encounter Plan of Treatment Not on file documented as of this encounter Visit Diagnoses Not on filedocumented in this encounter Care Teams Charge Master Coordinator Relationship Specialty Start Date End Date Juan Banks MD [address] [place] [address] PCP - General Internal Medicine 03/15/19 Alexandru Villatoro MD [address] [place] [address] Surgery, Neurosurgery 04/27/20 Yara Martinez PA [address] [place] [phone] Physician Home Organizer Pain Medicine 01/11/22 documented as of this encounter
--- OUTSIDE RECORDS SUMMARY | 2025-01-24 11:04 | XMS_ITS | Encounter Summary ---
Author Organization [facility] Address [address] [place] [address] Care Team Providers Care Breakdown Mill Operator Name Role Phone Juan Banks MD Primary Care Provider Alexandru Villatoro MD Unavailable [phone] Yara Martinez Unavailable [phone] Encounter Details Date Type Department Care Team (Late st Contact Info) Description 09/14/2021 Scanned Document [facility] Neurosurgery [place] 85 [facility] [address] [place] [phone] Alexandru Villatoro MD 85 [facility] Abdiel [address] [place] [address] [phone] Social History Tobacco Use Types Packs/Day Years [...] have Coronavirus / COVID-19? No / Unsure 09/14/2021 9:52 AM EST documented as of this encounter Plan of Treatment Not on file documented as of this encounter Visit Diagnoses Not on filedocumented in this encounter Care Teams Breakdown Mill Operator Relationship Specialty Start Date End Date Juan Banks MD [address] [facility] [address] PCP - General Internal Medicine 03/15/19 Alexandru Villatoro MD [address] [place] [address] Surgery, Neurosurgery 04/27/20 Yara Martinez PA [address] [place] [address] [phone] Physician Music Rehabilitation Therapist Pain Medicine 01/11/22 documented as of this encounter
--- OUTSIDE RECORDS SUMMARY | 2025-01-24 11:04 | XMS_ITS | Clinical Summary ---
Author Organization [facility] Address [address] [place] [address] Phone Care Team Providers Care Area Operations Manager Name Role Phone Juan Banks MD Primary Care Provider [phone] Allergies Active Allergy Reactions Criticality Noted Date Comments Gabapentin Other Medium 05/06/2020 Pt states it is not good for her mentally - pt has been hospitalized after taking this med Lamotrigine Dizziness,Hallucinat io ns,Other High 04/27/2020 Dizziness/fuzzy head Medications baclofen (LIORESAL) 10 mg tablet Take 1 tablet (10 mg total) by mouth 3 times daily. 07/24/2024 Active omeprazole (PriLOSEC) [address] capsule Take 1 capsule (40 mg total) by mouth daily. 05/21/2019 Active oxyBUTYnin XL (DITROPAN-XL) 5 mg 24 hr tablet Take 1 tablet (5 mg total) by mouth at bedtime. 09/19/2022 Active rosuvastatin (CRESTOR) 5 mg tablet Take 1 tablet (5 mg total) by mouth daily. 02/09/2024 Active traMADoL (ULTRAM) 50 mg tablet Take 1 tablet (50 mg total) by mouth once daily as needed. Max Daily Amount: 50 mg 07/20/2022 Active senna-docusate (PERICOLACE) 8.6-50 mg per tablet Take 2 tablets by mouth daily. 01/25/2022 Active Hospital, Clinic, or Other Facility Administered Medication Ordered Dose Route Frequency Start Date End Date Status ondansetron ODT (ZOFRAN-ODT) disintegrating tablet 4 mgIndications:Hydronep hrosis with renal and ureteral calculus obstruction 4 mg oral Every 8 hours PRN 10/11/2024 Active Active Problems Problem Noted Date Diagnosed Date Hyperlipidemia 07/10/2024 GERD (gastroesophageal reflux disease) Overview (10/09/2024): related surgery/ulcer Anxiety 07/10/2024 Asthma 07/10/2024 Resolved Problems Problem Noted Date Diagnosed Date Resolved Date Complicated UTI (urinary tract infection) 10/10/2024 10/11/2024 Hydronephrosis with renal an d ureteral calculus obstruction 10/09/2024 10/11/2024 Surgical History Surgery Date Site/Laterality Comments GASTRIC BYPASS 1999 PROCEDURE: GASTRIC BYPASS FOR OBESIT CARPAL TUNNEL RELEASE 09/2014 Bilateral PROCEDURE: WI NEUROPLASTY &/TRANSPOS MEDIAN NRV CARPAL TUNNE ANKLE SURGERY 2004 Right PROCEDURE: HISTORICAL ANKLE SURGERY OTHER SURGICAL HISTORY 2011 PROCEDURE: WI HYSTEROSCOPY ENDOMETRIAL ABLATION SECTION 1986 PROCEDURE: HISTORICAL DELIVERY ROBOTIC ASSISTED HYSTERECTOMY 02/04/2015 PROCEDURE: HISTORICAL ROBOTIC HYSTERECTOMY WITH OR WITHOUT BSO; COMMENT: da Sincere total hysterectomy with bilateral salpingectomy performed by Dr. Finch Medical History Medical History Date Comments Fibromyalgia DX:Fibromyalgia Anxiety DX:Anxiety Family History Medical History Relation Name Comments Hyperlipidemia Brother 1 Diabetes Father Hypertension Father Diabetes Sister 1 Hypertension Sister 2 Hyperlipidemia Sister 3 Hyperlipidemia Sister 4 Other cancer Sister 5 Uterine Relation Name Status Comments Brother 1 Brother 2 Alive Daughter Alive Father (Age 54) Maternal Grandfather Maternal Grandmother Mother Alive Paternal Grandfather Paternal Grandmother Sister 1 Sister 2 Sister 3 Sister 4 Sister 5 Sister 6 Alive Sister 7 Alive Sister 8 Alive Sister 9 Alive Son Alive Social History Tobacco Use Types Packs/Day Years Used Date Smoking Tobacco: Never Smokeless Tobacco: Never Alcohol Use Standard Drinks/Week Comments No 0 (1 standard drink = 0.6 oz pur e alcohol) Interpersonal Safety Answer Date Record ed Physical Abuse 10/10/2024 Verbal Abuse 10/10/2024 Comments No Sex and Gender Information Value Date Recorded Sex Assigned at Female 10/09/2024 1:10 PM EST Legal Sex Female 6:54 PM EST Gender Identity Female 10/09/2024 1:10 PM EST Sexual Orientation Straight 10/10/2024 3: 46 AM EST Obstetrics History Last Filed Vital Signs Vital Sign Reading Time Taken Comments Blood Pressure 125/69 10/11/2024 8:34 AM EST Pulse 72 10/11/2024 8:34 AM EST Temperature 36.6 ??C (97.8 ??F) 10/11/2024 8:34 AM ES T Respiratory Rate 18 10/11/2024 8:34 AM EST Oxygen Saturation 99% 10/11/2024 8:34 AM EST Inhaled Oxygen Concentration - - Weight 112 kg (247 lb 9.5 oz) 10/11/2024 6:00 AM EST Height 165 cm (5' 4.96 ) 10/10/2024 8:23 AM EST Body Mass Index 41.25 10/10/2024 8:23 AM EST Plan of Treatment Health Maintenance Due Date Last Done Comments Breast Cancer Screening 1971 Hepatitis B Vaccines (1 of 3 - 19+ 3-dose series) 1990 Cervical Cancer Screening: Pap Smear 01/25/1992 Zoster Vaccines (2 of 2) 03/24/2021 01/27/2021 COVID-19 Vaccine ( season) 2024 07/08/2022, 03/01/2021, 02/08/2021 Cholesterol Screening (Lipid Panel) 10/09/2024 Colorectal Cancer Screening: Colonoscopy 10/09/2024 Depression Screening 10/09/2024 HIV Screening 10/09/2024 Hepatitis C Screening 10/09/2024 Social Influencers of Health Screening 10/09/2024 Influenza Vaccine (Season Ended) 2025 07/08/2022, 07/08/2022, 08/13/2021, Additional history exists DTaP,Tdap,and Td Vaccines (3 - Td or Tdap) 01/18/2031 01/18/2021, 09/15/2000 Pneumococcal Vaccine: 50+ Years Completed 01/27/2023, 09/02/2015, 09/15/2000 Pneumococcal Vaccine: Pediatrics (0 to 5 Years) and At-Risk Patients (6 to 64 Years) Completed 01/27/2023, 09/02/2015, 09/15/2000 HIB Vaccines Aged Out No longer eligi ble based on patient's age to complete this topic HPV Vaccines Aged Out No longer eligi ble based on patient's age to complete this topic Hepatitis A Vaccines Aged Out No long er eligible based on patient's age to complete this topic IPV Vaccines Aged Out No longer eligi ble based on patient's age to complete this topic MMR Vaccines Aged Out No longer eligi ble based on patient's age to complete this topic Meningococcal ACWY Vaccine Aged Out N o longer eligible based on patient's age to complete this topic Meningococcal B Vaccine Aged Out No l onger eligible based on patient's age to complete this topic RSV Immunization Patients Under 20 months Aged Out No longer eligible based on patient's age to complete this topic Varicella Vaccines Aged Out No longer eligible based on patient's age to complete this topic Medical Devices Implanted Type Area Financial Planning Advisor Device Identifier Shelf Expiration Date Model / Serial / Lot Stent Uret [id number] Stretch W/O Gw - Sn/A - [id number] Implanted:Qty: 1 on 10/10/2024 by Yogi Kidd MD at [facility] Stents Left: Ureter [employer]GYN[employer] Y 04/24/2027 [id number] / N/A / [id number] Insurance MEDICARE [facility] Advance Directives * Full Code - Confirmed (Latest Code Status on File) Date Activated Date Inactivated Comments 10/10/2024 12:25 AM 10/11/2024 2:50 PM This code status was ascertained in the following way: Code status discussion: discussion with patient To update the patient's code status, place a code status order. Do not modify or discontinue any currently active code status orders. * Full Code - Default Date Activated Date Inactivated Comments 10/09/2024 11:21 PM 10/10/2024 12:25 AM This is order is used when code status has not been discussed with the patient, or code status is otherwise unknown/unconfirmed To update the patient's code status, place a code status order. Do not modify or discontinue any currently active code status orders. Care Teams Area Operations Manager Relationship Specialty Start Date End Date Juan Banks MD [address] [place] [address] PCP - General Internal Medicine 07/31/13
--- OUTSIDE RECORDS SUMMARY | 2025-01-24 11:04 | XMS_ITS | Encounter Summary ---
Author Organization [facility] Address [address] [place] [address] Care Team Providers Care Hydroelectric Plant Electrical Engineer Name Role Phone Juan Banks MD Primary Care Provider Alexandru Villatoro MD Unavailable [phone] Yara Martinez Unavailable [phone] Encounter Details Date Type Department Care Team (Late st Contact Info) Description 09/15/2021 Scanned Document [facility] Neurosurgery [place] 85 [facility] [address] [place] [phone] Alexandru Villatoro MD 85 [facility] Abdiel [address] [place] [address] [phone] Social History Tobacco Use Types Packs/Day Years [...] on filedocumented in this encounter Care Teams Hydroelectric Plant Electrical Engineer Relationship Specialty Start Date End Date Juan Banks MD [address] [place] [address] PCP - General Internal Medicine 03/15/19 Alexandru Villatoro MD [address] [place] [address] Surgery, Neurosurgery 04/27/20 Yara Martinez PA [address] [place] [address] [phone] Physician School Counselor Pain Medicine 01/11/22 documented as of this encounter
--- OUTSIDE RECORDS SUMMARY | 2025-01-24 11:04 | XMS_ITS | Clinical Summary ---
Author Organization [facility] Address [address] [place], [place] [id number] Care Team Providers Care Tie Puller Name Role Phone Juan Banks MD Primary Care Provider [phone] Allergies Active Allergy Reactions Criticality Noted Date Comments Lamotrigine 06/11/2021 Medications Medication Sig Dispensed Refills Start Date End Date Status omeprazole (PriLOSEC) 20 MG capsule Take 40 mg by mouth daily. 0 Active fluticasone-salmete rol (Advair Diskus) 250-50 MCG/DOSE DISKUS 1 inhalation by Inhaled route every 12 (twelve) hours. 0 Active Rosuvastatin Calcium 5 MG CPSP Take 5 mg by mouth. 0 Active ibuprofen 200 MG tablet Take 3 tablets (600 mg total) by mouth every 6 (six) hours as needed for pain. 30 tablet 0 06/11/2021 Active Social History Tobacco Use Types Packs/Day Years Used Date Smoking Tobacco: Never Smokeless Tobacco: Never Alcohol Use Standard Drinks/Week Comments Not Currently 0 (1 standard drink = 0.6 oz pur e alcohol) Sex and Gender Information Value Date Recorded Sex Assigned at Female 06/11/2021 6:18 PM EDT Gender Identity Not on file Sexual Orientation Not on file Job Start Date Occupation Industry Not on file Not on file Not on file Last Filed Vital Signs Vital Sign Reading Time Taken Comments Blood Pressure 130/62 06/11/2021 6:48 PM EDT Pulse 75 06/11/2021 6:48 PM EDT Temperature 35.9 ??C (96.6 ??F) 06/11/2021 6:48 PM ED T Respiratory Rate 22 06/11/2021 6:48 PM EDT Oxygen Saturation 99% 06/11/2021 6:48 PM EDT Inhaled Oxygen Concentration - - Weight 90.7 kg (200 lb) 06/11/2021 6:48 PM EDT Height 170.2 cm (5' 7 ) 06/11/2021 6:48 PM EDT Body Mass Index 31.32 06/11/2021 6:48 PM EDT Plan of Treatment Health Maintenance Due Date Last Done Comments Hepatitis B Vaccines (1 of 3 - 3-dose series) 1971 Hepatitis C Screening 1971 COVID-19 Vaccine (#1) 1971 Depression Screening 1983 Preventative Health Evaluation 1989 DTap / Tdap / Td (1 - Tdap) 1990 Cervical Cancer Screening (P ap Smear) 01/25/1992 Colon Cancer Screening (Colonoscopy) 01/25/2016 Breast Cancer Screening (Mammogram) 2021 Shingrix-Zoster Vaccine (1 of 2) 2021 Influenza Vaccine (#1) 2024 Pneumococcal Vaccine Aged Out No long er eligible based on patient's age to complete this topic RSV Ped < 20 months Aged Out No longe r eligible based on patient's age to complete this topic Care Teams Tie Puller Relationship Specialty Start Date End Date Juan Banks MD [address] [place] [address] PCP - General Internal Medicine 06/11/21
--- OUTSIDE RECORDS SUMMARY | 2025-01-24 11:04 | XMS_ITS | Patient Health Record ---
Author Organization [facility] Address [address] [facility] [address] [place] [address] Care Team Providers Care Regional Marketing Manager Name Role Phone Juan Banks Primary Care Provider Unavailabl e Allergies Allergen (clinical drug ingredient) Drug/Non Drug Allergy documented on EMR Reaction Allergy Type Onset Date Status lamotrigine LaMICtal dizziness Drug Allergy Activ e gabapentin Gabapentin Unknown Drug Allergy Activ e Reason For Referral No Information Medications Medication SIG (Take, Route, Frequency, Duration) Notes Start Date End Date Status Advair Diskus 500-50 MCG/ACT 1 puff Inhalation Twice a day Active traMADol HCl 50 MG 1 tablet as needed O rally Once a day Active Ciclopirox 8 % 1 application [employer] ally to toenail Once a day for [...] needed O rally Twice a day Active Plan Of Treatment No Information Insurance Providers Payer Name Payer Address Payer Phone Subscriber Number Group Number Insured Name Patient Relationship to Insured Coverage Start Date Coverage End Date Cigna [address] [place] [id number] Carito Lam Self - patient is the insured Medical (General) History Medical History History ICD Code acute gastric [...] vitamin D deficiency COVID vaccinated X 2 ([employer]) and [address] ([employer]) Surgical History Surgery Date(Month/Year) hysterectomy 02/04/2015 bilateral carpal tunnel release gastric bypass operation spinal stimulator X 2 right achilles tendon repair back surgery 1999 1986 Hospitalization History Reason Date(Month/Year) (girl) 1990 (boy) 1986 gastric bypass hysterectomy 02/04/2015 back surgery
--- OUTSIDE RECORDS SUMMARY | 2025-01-24 11:04 | XMS_ITS | Encounter Summary ---
Author Organization [facility] Address [address] [place] [address] Care Team Providers Care Auto Brake Technician Name Role Phone Juan Banks MD Primary Care Provider [phone] Alexandru Villatoro MD Unavailable [phone] Yara Martinez Unavailable [phone] Encounter Details Date Type Department Care Team (Late st Contact Info) Description 03/09/2022 Scanned Document [facility] Neurosurgery [place] 85 [facility] [address] [place] [address] Marilou Suh PA Valid Address Needed Social History Tobacco Use Types Packs/Day Years Used Date Smoking Tobacco: Former Cigarettes Q uit: 2014 Smokeless Tobacco: Never Comments:Stopped 7-8 years a [...] on filedocumented in this encounter Care Teams Auto Brake Technician Relationship Specialty Start Date End Date Juan Banks MD [address] [place] [address] PCP - General Internal Medicine 03/15/19 Alexandru Villatoro MD [address] [place] [address] [place] [address] Surgery, Neurosurgery 04/27/20 Yara Martinez PA [address] [place] [address] Physician Casting Machine Control Board Operator Pain Medicine 01/11/22 documented as of this encounter
--- OUTSIDE RECORDS SUMMARY | 2025-01-24 11:04 | XMS_ITS | Encounter Summary ---
Author Organization [facility] Address [address] [place] [address] Care Team Providers Care Metal Weigher Name Role Phone Juan Banks MD Primary Care Provider [phone] Alexandru Villatoro MD Unavailable [phone] Yara Martinez Unavailable [phone] Encounter Details Date Type Department Care Team (Late st Contact Info) Description 03/11/[address] [facility] Neurosurgery [place] 85 [facility] [address] [place] [address] Neurosurgery, Scan Social History Tobacco Use Types [...] on filedocumented in this encounter Care Teams Metal Weigher Relationship Specialty Start Date End Date Juan Banks MD [address] [place] [address] PCP - General Internal Medicine 03/15/19 Alexandru Villatoro MD [address] [place] [address] Surgery, Neurosurgery 04/27/20 Yara Martinez PA [address] [place] [address] [phone] Physician Actuarial Director Pain Medicine 01/11/22 documented as of this encounter
--- OUTSIDE RECORDS SUMMARY | 2025-01-24 11:04 | XMS_ITS | Encounter Summary ---
Author Organization [facility] Address [address] [place] [address] Care Team Providers Care Ski Instructor Name Role Phone Juan Banks MD Primary Care Provider [phone] Alexandru Villatoro MD Unavailable [phone] Yara Martinez Unavailable Encounter Details Date Type Department Care Team (Late st Contact Info) Description 09/14/2021 Prep for Surgery [facility] Pre-Admission Testing [facility] [address] [facility] [address] [place] [phone] Maria G Hyatt APRN 85 [facility] Abdiel [address] [place] [address] [phone] Pre-op examination (Primary Dx) Social History Tobacco Use Types [...] documented as of this encounter Visit Diagnoses Diagnosis Pre-op examination- Primary documented in this encounter Care Teams Ski Instructor Relationship Specialty Start Date End Date Juan Banks MD [address] [place] [address] PCP - General Internal Medicine 03/15/19 Alexandru Villatoro MD [address] [place] [address] Surgery, Neurosurgery 04/27/20 Yara Martinez PA [address] [place] [address] [address] [place], [place] [phone] Physician Blood Bank Coordinator Pain Medicine 01/11/22 documented as of this encounter
--- OUTSIDE RECORDS SUMMARY | 2025-01-24 11:04 | XMS_ITS | Encounter Summary ---
Author Organization [facility] Address [address] [place] [address] Care Team Providers Care Bag Machine Operator Helper Name Role Phone Juan Banks MD Primary Care Provider [phone] Alexandru Villatoro MD Unavailable [phone] Yara Martinez Unavailable Encounter Details Date Type Department Care Team (Late st Contact Info) Description 01/11/2022 Telephone [facility] [place] [address] [facility] 2[address] [place] [phone] Puja Sandoval MA [address] [place] [address] Social History Tobacco Use Types Packs/Day Years [...] have Coronavirus / COVID-19? No / Unsure 01/12/2022 11:29 AM EDT documented as of this encounter Miscellaneous Notes * Telephone Encounter - Puja Sandoval MA - 01/11/2022 1:38 PM EDT COVID screen: 1) Current temperature: Temp Readings from Last 1 Encounters: 12/24/21 98.3 ??F (36.8 ??C) - Temperature >100.0 F: No In the past two weeks, have you experienced (two of the following): 2) Cough: No 3) Difficulty breathing: No 4) Shortness of breath: No 5) N/V: No 6) Diarrhea: No 7) Abdominal pain: No 8) Loss of sense of taste: No 9) Loss of sense of smell: No 10) Body aches: No 11) Muscle pain: No 12) Sneezing: No 13) Runny nose: No 14) Sore throat: No 15) Headache: No 16)Fever: No 17)Chills: No 18)Repeated shaking with chills: No Have you recently been in close contact with a person confirmed or suspected of COVID-19? No Have you recently been in close contact with a person with flu like symptoms? No Have you recently had an admission to SNF/Rehab/Usp? No Have you traveled internationally or domestically in the last month? No documented in this encounter Plan of Treatment Not on file documented as of this encounter Visit Diagnoses Not on filedocumented in this encounter Care Teams Bag Machine Operator Helper Relationship Specialty Start Date End Date Juan Banks MD 470 [facility] [place] [address] PCP - General Internal Medicine 03/15/19 Alexandru Villatoro MD [address] [address] Surgery, Neurosurgery 04/27/20 Yara Martinez PA [address] [place] [address] Physician Miller Head Pain Medicine 01/11/22 documented as of this encounter
--- OUTSIDE RECORDS SUMMARY | 2025-01-24 11:04 | XMS_ITS | Encounter Summary ---
Author Organization [facility] Address [address] [place] [address] Care Team Providers Care Asset Protection Greeter Name Role Phone Juan Banks MD Primary Care Provider Alexandru Villatoro MD Unavailable Yara Martinez Unavailable Encounter Details Date Type Department Care Team (Late st Contact Info) Description 06/16/2021 Scanned Document [facility] Neurosurgery [place] [address] [phone] Alexandru Villatoro MD 85 [facility] Abdiel [address] [place] [address] [phone] Social History Tobacco Use Types Packs/Day Years Used Date Smoking Tobacco: Former Cigarettes Q uit: 2014 Smokeless Tobacco: Never Alcohol Use Standard Drinks/Week [...] have Coronavirus / COVID-19? No / Unsure 06/14/2021 3:23 PM EDT documented as of this encounter Plan of Treatment Not on file documented as of this encounter Visit Diagnoses Not on filedocumented in this encounter Care Teams Asset Protection Greeter Relationship Specialty Start Date End Date Juan Banks MD [address] [facility] [place] [place] [address] PCP - General Internal Medicine 03/15/19 Alexandru Villatoro MD [address] [place] [address] Surgery, Neurosurgery 04/27/20 Yara Martinez PA [address] [place] [address] 435 [place], [place] [phone] Physician 4Th Grade Teacher Pain Medicine 01/11/22 documented as of this encounter
--- OUTSIDE RECORDS SUMMARY | 2025-01-24 11:04 | XMS_ITS | Encounter Summary ---
Author Organization [facility] Address [address] [place] [address] Care Team Providers Care Health Care / Medical Job Titles Name Role Phone Juan Banks MD Primary Care Provider Alexandru Villatoro MD Unavailable [phone] Yara Martinez Unavailable [phone] Encounter Details Date Type Department Care Team (Late st Contact Info) Description 05/29/2024 Scanned Document [facility] Neurosurgery [place] 85 [facility] [address] [place] [phone] Marilou Suh PA Valid Address Needed Social [...] on filedocumented in this encounter Care Teams Health Care / Medical Job Titles Relationship Specialty Start Date End Date Juan Banks [place] [facility] [address] PCP - General Internal Medicine 03/15/19 Alexandru Villatoro MD [address] [place] [address] [place] [address] Surgery, Neurosurgery 04/27/20 Yara Martinez PA [address] [place] [address] [address] [place] [address] Physician Tank Shop Supervisor Pain Medicine 01/11/22 documented as of this encounter
--- OUTSIDE RECORDS SUMMARY | 2025-01-24 11:04 | XMS_ITS | Encounter Summary ---
Author Organization [facility] Address [address] [place] [address] Care Team Providers Care Waste Water Treatment Plant Operator Name Role Phone Juan Banks MD Primary Care Provider Alexandru Villatoro MD Unavailable [phone] Yara Martinez Unavailable Encounter Details Date Type Department Care Team (Late st Contact Info) Description 11/26/2021 Scanned Document [facility] Neurosurgery [place] [address] [facility] [address] [place] [phone] Alexandru Villatoro MD [address] [facility] [place] [address] [place] [address] [phone] Social History Tobacco Use Types Packs/Day Years [...] have Coronavirus / COVID-19? No / Unsure 11/09/2021 9:13 AM EST documented as of this encounter Plan of Treatment Not on file documented as of this encounter Visit Diagnoses Not on filedocumented in this encounter Care Teams Waste Water Treatment Plant Operator Relationship Specialty Start Date End Date Juan Banks MD [address] [facility] [place] [address] PCP - General Internal Medicine 03/15/19 Alexandru Villatoro MD [address] [place] [id number] Surgery, Neurosurgery 04/27/20 Yara Martinez PA [address] [place] [address] [phone] Physician Coating Machine Helper Pain Medicine 01/11/22 documented as of this encounter
--- OUTSIDE RECORDS SUMMARY | 2025-01-24 11:04 | XMS_ITS | Encounter Summary ---
Author Organization [facility] Address [address] [place] [address] Care Team Providers Care Drive In Teller Name Role Phone Juan Banks MD Primary Care Provider [phone] Alexandru Villatoro MD Unavailable [phone] Yara Martinez Unavailable [phone] Reason for Visit * Reason Comments Medication Refill Encounter Details Date Type Department Care Team (Late st Contact Info) Description 01/07/2022 Refill [facility] Neurosurgery [place] [address] [facility] [address] [place] [phone] Marilou Suh PA Valid Address Needed Postlaminectomy syndrome of lumbar region Social History Tobacco Use Types Packs/Day Years [...] as of this encounter Visit Diagnoses Diagnosis Postlaminectomy syndrome of lumbar region Postlaminectomy syndrome, lumbar region documented in this encounter Care Teams Drive In Teller Relationship Specialty Start Date End Date Juan Banks MD [address] [place] [address] PCP - General Internal Medicine 03/15/19 Alexandru Villatoro MD [address] [place] [address] [phone] Surgery, Neurosurgery 04/27/20 Yara Martinez PA [address] [place] [address] [phone] Physician Sales Order Coordinator Pain Medicine 01/11/22 documented as of this encounter
== END 2025-01-24 10:16 | disposition home or self-care (01) ==
LOC: HO.HMGCX 10:15
PROVIDERS: PCP Internal Medicine; Visit Provider Nurse Practitioner Family
DX: M70.61 Trochanteric bursitis, right hip (principal); M70.62 Trochanteric bursitis, left hip; M25.551 Pain in right hip; M25.552 Pain in left hip
CPT/HCPCS: 73521

== ENCOUNTER → 2025-01-24 10:20 | Outpatient (BNV) | payer OTHER, SELFPAY | PROVIDERS: PCP Internal Medicine; Visit Provider Radiology Diagnostic Radiology | DX: M70.61 Trochanteric bursitis, right hip (principal) | CPT/HCPCS: 73521 ==

== ENCOUNTER 2025-02-06 09:19 | Outpatient (AMB) | payer OTHER, SELFPAY ==
[2025-02-06 09:25] VITALS: BP 147/68; PULSE 84; O2SAT 99; BMI 39.4
--- NOTE | 2025-02-06 09:25 | MHC.OFFVIS ---
Vital Signs 02/06/25 09:25 Height 5 ft 6 in Weight 244 lb 4 oz BMI 39.4 BP 147/68 H Blood Pressure Location Lt brachial Position Sitting Pulse 84 Pulse Source Pulse Oximeter Pulse Oximetry (%) 99 Oxygen Delivery Method Room Air Intake Visit Reasons: To go over xrays Intake Note: Pain today 8.5 Ankle Patch Molder Required: No Accompanied by: Self / Same As Patient Allergies gabapentin Allergy (Unknown, Verified 02/06/25 09:26) suicidal thoughts lamotrigine [From Lamictal] Allergy (Unknown, Verified 02/06/25 09:26) Unknown Medication List - Last Reconciled 02/06/25 by CARMELA Chávez albuterol sulfate 90 mcg/actuation 2 puffs inhalation Q4-6H PRN ascorbate calcium (vitamin C) 500 mg PO DAILY baclofen 10 mg PO TID diclofenac sodium 1% (Arthritis Pain (diclofenac)) 4 grams topical QID ferrous sulfate (Iron (ferrous sulfate)) 325 mg PO DAILY fluticasone propion-salmeterol 500-50 mcg/dose (Advair Diskus) 1 inh inhalation BID hydroxyzine HCl 25 mg PO BID PRN ibuprofen 800 mg PO BID lidocaine 5% leave on most painful area for up to 12 hrs topically daily; omeprazole 40 mg PO DAILY oxybutynin chloride ER 5 mg PO DAILY rosuvastatin 5 mg PO DAILY tramadol 50 mg PO Q6H PRN HPI Comments Details: The patient is a 55-year-old female presenting with chronic lower back pain and discuss recent right hip xray results. The pain is described as stabbing and distinct from the pain covered by her spinal cord stimulator, exacerbated upon light palpation and radiates predominantly at the midline lower back and right buttock worse than left. The patient has a significant surgical history, including a posterior lumbar fusion at the L4-L5 level in 2014 and SCS implant in 2021, with ongoing lower back and bilateral hip and buttock discomfort. Over the last year, she has noted worsening bilateral hip pain (right>left) in the absence of regular steroid injections, which previously provided relief. Right hip xray showed no acute findings and no significant arthritic change. Her spinal cord stimulator generally manages part of her back pain, excluding the current midline discomfort, and has not required a revision in programming for the last 3-4 months. A midline lower back tenderness remains a significant source of discomfort. She reports no numbness, tingling, or associated groin pain. Denies any recent cough, cold, infection, fever, trauma, falls, injuries or any significant changes in medical history since last office visit. Denies any changes to medications, medical history or recent hospitalizations. - Onset: Chronic, ongoing for several years with variable intensity. - Quality: Described as intense stabbing pain, distinct from pain covered by SCS. - Location: Primarily midline lower back, radiating in some instances, more to the RLE. - Exacerbating Factors: Palpation and physical activity; worsens upon waking. - Relieving Factors: Medication, periodic steroid injections. - Additional: Bilateral hip pain without groin involvement, present constantly but variable in intensity. - Affect: Pain impacts psychological wellbeing, creating a fear of worsening symptoms and apprehension about future interventions. - Analgesia: Utilizes ibuprofen (typically 800mg once daily), baclofen, and tramadol routinely, largely to manage pain enabling function. - Adverse Effects: No adverse reactions reported from pain medications. - Activities of Daily Living: Pain interferes with morning routines and exercises, with goals to restore pain-free function and mobility. - Aberrant Drug Related Behaviors: No reported misuse or deviation from prescribed medication regimen. PRIOR: Patient presents today to assess response to Bilateral Therapeutic SIJ injections on 08/27/[address] Pascual. Patient reports ongoing 70% pain relief in the projection of bilateral SIJ areas with significant improvement in her daily functioning, mobility and sleep. She continues to experience pain both GTB regions and intermittent right calf warm sensations with tingling and chronic low back pain. Patient recently underwent batter replacement by Dr. Villatoro for lumbar Medtronic SCS implant 2 months ago. Patient is content with overall outcome for SIJ injections and will continue to monitor symptoms. Denies any recent cough, cold, infection, fever, bladder or bowel dysfunction, saddle anesthesia, or any other significant changes in medical or surgical history since last office visit. Past Procedures: 08/27/24: Bilateral Therapeutic SIJ injections-70% ongoing pain relief PRIOR: Patient is a pleasant 54 years old female under history of chronic mid and low back pain, history of L4-L5 lumbar fusion, fibromyalgia, chronic greater trochanteric bursitis, sacroiliac joint pain, anxiety and depression, PTSD, gastric bypass and morbid obesity presents today for initial evaluation of chronic low back pain. Patient is followed by neurosurgeon Dr. Villatoro [place] and has been also followed by pain management in [place] for injection therapy. She reports her pain specialist provider has left the practice. Patient reports small arachnoid cyst in T5-T6 on the right and has discussion surgical removal with Dr. Villatoro. Patient does have a Medtronic spinal cord stimulator with non rechargeable battery with paddles which is due for replacement. rep Valdo from [employer] is present today and has interrogated spinal cord stimulator device today and reports device is due for battery replacement otherwise no program adjustment is needed. Patient is also taking tramadol and baclofen, prescribed by PCP. Patient reports chronic low back pain and postlaminectomy syndrome has been well managed with spinal cord stimulator in place and she is looking for battery replacement. She reports significant localized tenderness in the projection of bilateral sacroiliac joint areas in greater trochanteric bursae. Patient interested to undergo therapeutic injections for SI joint pain. She has been getting therapeutic GTB injections every 3-4 months, with last injections one month ago. 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 Pain affects her daily activities and functioning, mobility, sleep, mood, and social interactions. Denies any fever or chills, abdominal or groin pain, weakness, foot drop, bladder or bowel dysfunction or saddle anesthesia. Location: Lower back with radiation into buttocks and lateral hips Duration: Chronic pain for many years Characteristics of symptom or complaint: Aching, throbbing, sharp, tightness, stabbing, crushing, tugging, tiring Aggravating or associated factors: Prolonged sitting or standing, walking, movements Relieving factors: Sitting, tramadol, baclofen, heat therapy Treatment: Injections for back/hips, TENS unit, Oska pulse pain relief, Medtronic SCS [facility] Medical History Battery end of life of spinal cord stimulator Vitamin D deficiency Vitamin B12 deficiency Rhinitis PTSD (post-traumatic stress disorder) Ocular migraine Moderate somatic symptom disorder Nephrolithiasis Neck pain Knee pain Iron deficiency Hypercholesterolemia History of tobacco use History of colon polyps Hematuria Headache disorder GERD (gastroesophageal reflux disease) Fibromyalgia Depression Chronic mid back pain Chronic lower back pain Carpal tunnel syndrome, bilateral Borderline personality disorder Bipolar disorder Basilar artery migraine Asthma Anxiety Acute gastric ulcer Surgical History Gastric bypass status for obesity S/P insertion of spinal cord stimulator (~2021) H/O gastric bypass (~2000) H/O: hysterectomy (~2015) History of carpal tunnel surgery (~2016) History of section (~1986) History of back surgery (~2014) Social History Alcohol intake: current Alcohol intake frequency: holidays/special occasions only Patient Tobacco Use Status: Former Tobacco user Review of Systems Const Details: - Musculoskeletal: Reports lower back pain, bilateral hip and buttock (right>left) pain. Denies numbness, tingling or weakness in legs. - Neurological: Denies any new or worsening neurological deficits. - Other systems: No additional pertinent symptoms discussed. All systems reviewed & are unremarkable except as noted in HPI and below Physical Exam Vital Signs: Last Vital Signs Pulse 84 02/06/25 09:25 BP 147/68 H 02/06/25 09:25 Pulse Ox 99 02/06/25 09:25 Oxygen Delivery Method Room Air 02/06/25 09:25 BMI result Body Mass Index 39.4 General: Appears afebrile. Alert and oriented. Mood and affect appropriate. Follows and participates in conversation appropriately. Respiratory effort is unlabored. No cough. Able to transition from sit to stand unassisted. Ambulates with bilaterally normal heel strike and toe off. General: Yes no CVA tenderness Back/Spine/Pelvis Other: Limited lumbar ROM due to pain. Lumbar flexion and extension reproduces mild symptoms. Significant midline tenderness in the lower lumbar spine with light-moderate palpation. Demonstrates 5/5 strength of quadriceps bilaterally as well as flexion/dorsiflexion of bilateral feet against resistance. 2+ pedal pulses bilaterally. Seated straight leg rise with dorsiflexion negative bilaterally. Diminished patellar and achilles reflexes bilaterally. Facet loading test positive bilaterally. Dave sign, Amrit?s, Gaenslen, Pelvic compression and Stinchfield tests are positive bilaterally. No groin pain with I/E hip rotations. Mild TTP bilateral GTB. Valsalva maneuver negative. Back: no CVA tenderness Cervical Spine: cervical ROM normal, cervical muscular tenderness and No Cervical spine tenderness Thoracic/Lumbar Spine: thoracic and lumbar spine normal to inspection, Thoracic/lumbar spine scar(s), Lasegue's sign negative, straight leg raise negative bilaterally, pain with thoraco-lumbar ROM, paraspinal muscle tenderness, thoraco-lumbar ROM limited, No thoracic spinal tenderness and lumbar spinal tenderness (L4-S1) Pelvis: buttock tenderness bilaterally Sacroiliac joints: bilaterally tender to palpation Extrem General: Yes capillary refill normal, Yes no clubbing, cyanosis or edema and Yes no calf tenderness Results Reviewed Results Reviewed: 11/25/2018 11/25/2018 MRI Thoracic spine w/o contrast 05/24/24 XR hip BI w PEL1V 01/24/25 CLINICAL HISTORY: M70.61 - Trochanteric bursitis, right hip 5 view, pelvis and right hip Comparison: None Findings: No acute fracture or dislocation. No significant arthritic change. Battery pack in the left lower quadrant. Posterior fusion at L4-L5. IMPRESSION: No acute findings. Assessment & Plan Assessment & Plan (1) Lumbar post-laminectomy syndrome: Code(s): M96.1 - Postlaminectomy syndrome, not elsewhere classified Category: Medical (2) Lumbar degenerative disc disease: Code(s): M51.36 - Other intervertebral disc degeneration, lumbar region Category: Medical (3) Lumbar radiculopathy: Code(s): M54.16 - Radiculopathy, lumbar region Category: Medical (4) Sacroiliac joint pain: Code(s): M53.3 - Sacrococcygeal disorders, not elsewhere classified Category: Medical (5) Greater trochanteric bursitis of both hips: Code(s): M70.61 - Trochanteric bursitis, right hip; M70.62 - Trochanteric bursitis, left hip Category: Medical (6) Chronic lower back pain: Code(s): M54.50 - Low back pain, unspecified; G89.29 - Other chronic pain Category: Medical Plan The plan involves obtaining an MRI of the lumbar spine with oral sedation, if necessary, to evaluate for structural issues or changes at the site of the spinal cord stimulator and significant midline tenderness at lower lumbar spine. Patient is claustrophobic and requests open MRI at [facility] with oral Ativan or Valium. She underwent Medtronic SCS battery replacement by Neurosurgeon Dr. Villatoro in July 2024 and reports her mid back pain has been under good control. She reported good pain relief with previous bilateral therapeutic sacroiliac joint injections. Previously reviewed SI joint stabilization with Painteq fusion device The patient will maintain her current analgesic regimen, including ibuprofen, baclofen, and tramadol, while awaiting further imaging results. SI joint injections may be considered following MRI findings. The effectiveness of the stimulator will be monitored and potentially reprogrammed as needed. Patient is meeting with [employer] [facility] this week for potential SCS program adjustment. All questions were answered and the patient is in agreement of plan. Follow-up for MRI results and sooner as needed. Patient was informed and verbally consented to the use of an ambient scribe for clinic note documentation during this visit. Orders: Orders MR lumbar spine wo/w con Today F40.240 - Claustrophobia, M51.36 - Other intervertebral disc degeneration, lumbar region, M53.3 - Sacrococcygeal disorders, not elsewhere classified, M54.16 - Radiculopathy, lumbar region, M96.1 - Postlaminectomy syndrome, not elsewhere classified Patient Instructions: - Schedule a lumbar MRI, will sent oral sedation with Ativan or Valium if needed. - Continue current medications (ibuprofen, baclofen, tramadol) as instructed by prescribing provider. - Monitor and report any changes in pain or new symptoms. - Attend upcoming consultation for the spinal cord stimulator reprogramming. - Follow up with this office upon completion of imaging for further consultation. - Call the office to arrange oral sedation medication before MRI. Coding Level of Care Code Est Pt Level 4 (55095) Complex EM visit Add On G2211 Diagnoses Lumbar post-laminectomy syndrome M96.1 Lumbar degenerative disc disease M51.36 Lumbar radiculopathy M54.16 Sacroiliac joint pain M53.3 Greater trochanteric bursitis of both hips M70.61; M70.62 Chronic lower back pain M54.50; G89.29
--- OUTSIDE RECORDS SUMMARY | 2025-02-06 10:11 | XMS_ITS | Continuity of Care Document ---
Author Organization [facility] Gareth Lares Quintin Address [address] [place] [id number]- Care Team Providers Care Supply Controller Name Role Phone Jocelyn SANDOVAL, Juan Osborn Primary Care Physician [phone] Encounter [facility] Date(s): 01/06/25 - 02/05/25 [facility] Gareth Lares Adult [address] [place] [phone] Encounter Type: Triage Allergies, Adverse Reactions, Alerts Substance Criticality Severity Reaction Reaction Severity Status gabapentin Active LaMICtal dizziness Active Immunizations Given and Recorded Vaccine Date Status Refusal Reason pneumococcal 20-valent conjugate vaccine 01/27/23 Given Influenza Virus Vaccine (oldterm) 07/08/22 Recorde d Influenza Virus Vaccine (oldterm) 06/05/20 Recorde d Influenza Virus Vaccine (oldterm) 06/28/19 Recorde d Influenza Virus Vaccine (oldterm) 06/28/19 Recorde d [id number] 12y+ bivalent booster vax 07/08/22 Recorded influenza [...] 1Result Comment: [07/19/2017] aleah 2Location History: aleah [address] 3Admin Note: [employer] [facility] Medications Advair Diskus 500 mcg-50 mcg inhalation powder 1 puff, Inhalation, 2 times a day, # 3 each, Refills 3, Tot. Refills 3, Soft Stop, 01/07/25 2:27:00 PM EDT, Print Requisition, 168, cm, 12/05/24 14:18:00 EST, Height, 107, kg, 02/10/23 13:11:00 EDT, Dry Weight Start Date: 01/07/25 Status: Ordered Quantity: 3.0 Unit: each Repeat number: 4 Albuterol (Eqv-ProAir HFA) 90 mcg/inh inhalation aerosol 2 puffs, Inhalation, Every 6 hours, PRN NEEDED FOR WHEEZING, # 3 each, 3 Refills, Maintenance, 08/13/21 9:12:00 AM EDT, [id number], 2 puffs Inhalation Every 6 hours,PRN: NEEDED [...] 1:13:00 PM EDT, Route to Pharmacy Electronically, [facility]/pharmacy #[id number], 168, cm, 02/09/24 12:56:00 EDT,Height, 107, [...] Refills, Maintenance, 02/09/24 1:13:00 PM EDT, Tablet, [facility]/pharmacy #[id number], 168, cm, 02/09/24 12:56:00 EDT, Height, 107, kg, 02/10/23 13:11:00 EDT, Dry Weight Start Date: 02/09/24 Status: Ordered Quantity: 90.0 Unit: tablet Repeat number: 4 ferrous sulfate 325 mg oral tablet 1 tablet = 325 mg, By Mouth, Daily, may take with food to minimize abdominal discomfort, # 90 tablet, 3 Refills, Maintenance, 02/09/24 1:13:00 PM EDT, Tablet, [facility]/pharmacy #[id number], Partial fill upon patient request if [...] 1:13:00 PM EDT, Route to Pharmacy Electronically, [facility]/pharmacy #[id number], Partial fill upon patient request if [...] 3 Refills, Maintenance, 08/12/24 11:03:00 AM EDT, [id number], 168, cm, 04/08/24 8:20:00 EDT, Height, 107, kg, 02/10/23 13:11:00 EDT, Dry Weight Start Date: 08/12/24 Status: Ordered Quantity: 180.0 Unit: tablet Repeat number: 1 ibuprofen 800 mg oral tablet 1, tablet, By Mouth, 3 times a day, # 270 tablet, Refills 3, Tot. Refills 3, Maintenance, 02/09/24 1:13:00 PM EDT, Route to Pharmacy Electronically, [facility]/pharmacy #[id number], 168, cm, 02/09/24 12:56:00 EDT,Height, 107, kg, 02/10/23 13:11:00 EDT, Dry Weight Start Date: 02/09/24 Stop Date: 02/03/25 Status: Ordered Quantity: 270.0 Unit: tablet Repeat number: 4 LORazepam 0.5 mg oral tablet 1 tablet = 0.5 mg, By Mouth, 3 times a day, PRN for anxiety, # 12 tablet, 0 Refills, Maintenance, 01/20/25 12:26:00 PM EDT, Tablet, [facility] [id number] [facility], Partial fill upon patient request if the prescription is for a schedule II opioid drug., 168, cm, 12/05/24 14:18:00 EST, Height, 107, kg, 02/10/23 13:11:00 EDT, Dry Weight Start Date: 01/20/25 Status: Ordered Quantity: 12.0 Unit: tablet Repeat [...] 3 Refills, Maintenance, 02/09/24 1:13:00 PM EDT, [facility]/pharmacy #[id number], 168, cm, 02/09/24 12:56:00 EDT, Height, 107, kg, 02/10/23 13:11:00 EDT, Dry Weight Start Date: 02/09/24 Status: Ordered Quantity: 180.0 Unit: capsule Repeat number: 4 oxybutynin 5 mg/24 hours oral tablet, extended release 1 tablet, By Mouth, Daily at bedtime, DO NOT CRUSH OR CHEW, # 90 tablet, 3 Refills, Maintenance, 02/09/24 1:13:00 PM EDT, [facility]/pharmacy #[id number], 168, cm, 02/09/24 12:56:00 EDT, Height, 107, kg, 02/10/23 13:11:00 EDT, Dry Weight Start Date: 02/09/24 Stop Date: 02/03/25 Status: Ordered Quantity: 90.0 Unit: tablet Repeat number: 4 traMADol 50 mg oral tablet 1 tablet, By Mouth, Every 6 hours, # 120 tablet, 5 Refills, Maintenance, 10/28/24 2:05:00 PM EST, [facility]/pharmacy #[id number], 10/28/24, 168, cm, 04/08/24 8:20:00 EDT, Height, 107, kg, 02/10/23 13:11:00 EDT, Dry Weight Start Date: 10/28/24 Stop Date: 04/26/25 Status: Ordered Quantity: 120.0 Unit: tablet Repeat [...] Team Personnel Name: Juan Banks MD Position: [facility] Physician - Primary Care Member Role: PCP Address: [address] [place], [place] [address] Telecom: Name: Jeanie Jimenez RN Position: [facility] RN Member Role: Primary Care Nurse Name: Uyen Chanel RN Position: [facility] RN Member Role: Primary Care Nurse Name: Buzz Srivastava RN Position: [facility] RN Member Role: Primary Care Nurse Care Team Related Persons Name: MARCUS LARES Name: DORYS LARES Insurance Providers Guarantor name: ALETHARebecca KHOURYARNAUD Health Plan Information #: 1 Payer: [facility] POS Member Number: NA Policy Number: NA Group Number: NA
--- OUTSIDE RECORDS SUMMARY | 2025-02-06 10:11 | XMS_ITS | Encounter Summary ---
Author Organization [facility] Address [address] [place] [address] Care Team Providers Care Examination Supervisor Name Role Phone Juan Banks MD Primary Care Provider Alexandru Villatoro MD Unavailable [phone] Yara Martinez Unavailable [phone] Reason for Visit * Reason Comments Medication Refill Encounter Details Date Type Department Care Team (Late st Contact Info) Description 01/07/2022 Refill [facility] Neurosurgery [place] 85 [facility] [address] [place] [phone] Marilou Suh PA Valid Address Needed Postlaminectomy syndrome of lumbar region Social History Tobacco Use Types Packs/Day Years Used Date Smoking Tobacco: Former Cigarettes Q uit: 2013 Smokeless Tobacco: Never Comments:Stopped 7-8 years a go Alcohol Use Standard Drinks/Week Comments Not Currently 0 (1 standard drink = 0.6 oz pur e alcohol) Comments No Sex and Gender Information Value Date Recorded Sex Assigned at Female 07/19/2024 7:58 AM EDT Legal Sex Female 10:56 AM EDT Gender Identity Female 08/27/2021 7:16 AM EST Sexual Orientation Not on file documented as of this encounter Plan of Treatment Not on file documented as of this encounter Visit Diagnoses Diagnosis Postlaminectomy syndrome of lumbar region Postlaminectomy syndrome, lumbar region documented in this encounter Care Teams Examination Supervisor Relationship Specialty Start Date End Date Juan Banks MD [facility] [place] [address] PCP - General Internal Medicine 03/15/19 Alexandru Villatoro MD [address] [place] [address] Surgery, Neurosurgery 04/27/20 Yara Martinez PA [address] [place] [address] Physician Senior Sales Operations Manager Pain Medicine 01/11/22 documented as of this encounter
--- OUTSIDE RECORDS SUMMARY | 2025-02-06 10:11 | XMS_ITS | Continuity of Care Document ---
Author Organization [facility] Gareth Lares Quintin Address [address] [place] [address]- Care Team Providers Care Flash Designer Name Role Phone Jocelyn SANDOVAL, Juan Osborn Primary Care Physician Encounter [facility] Date(s): 01/06/25 - 02/05/25 [facility] Gareth Lares Adult [address] [place] [address]- Encounter Type: Triage Allergies, Adverse Reactions, Alerts Substance Criticality Severity Reaction Reaction Severity Status gabapentin Active LaMICtal dizziness Active Immunizations Given and Recorded Vaccine Date Status Refusal Reason pneumococcal 20-valent conjugate vaccine 01/27/23 Given Influenza Virus Vaccine (oldterm) 07/08/22 Recorde d Influenza Virus Vaccine (oldterm) 06/05/20 Recorde d Influenza Virus Vaccine (oldterm) 06/28/19 Recorde d Influenza Virus Vaccine (oldterm) 06/28/19 Recorde d [id number] 12y+ bivalent booster vax 07/08/22 Recorded influenza [...] 2Location History: [address] 3Admin Note: [facility] Medications Advair Diskus 500 mcg-50 mcg [...] 3 Refills, Maintenance, 08/13/21 9:12:00 AM EDT, [facility] #[id number], 2 puffs Inhalation Every 6 hours,PRN: NEEDED [...] 1:13:00 PM EDT, Route to Pharmacy Electronically, [facility]/pharmacy #[id number], 168, cm, 02/09/24 12:56:00 [...] Refills, Maintenance, 02/09/24 1:13:00 PM EDT, Tablet, [facility]/pharmacy #[id number], 168, cm, 02/09/24 12:56:00 EDT, Height, 107, kg, 02/10/23 13:11:00 EDT, Dry Weight Start Date: 02/09/24 Status: Ordered Quantity: 90.0 Unit: tablet Repeat number: 4 ferrous sulfate 325 mg oral tablet 1 tablet = 325 mg, By Mouth, Daily, may take with food to minimize abdominal discomfort, # 90 tablet, 3 Refills, Maintenance, 02/09/24 1:13:00 PM EDT, Tablet, [facility]/pharmacy #[id number], Partial fill upon patient [...] 1:13:00 PM EDT, Route to Pharmacy Electronically, [facility]/pharmacy #[id number], Partial fill upon patient [...] 3 Refills, Maintenance, 08/12/24 11:03:00 AM EDT, [facility] [id number], 168, cm, 04/08/24 8:20:00 EDT, Height, 107, kg, 02/10/23 13:11:00 EDT, Dry Weight Start Date: 08/12/24 Status: Ordered Quantity: 180.0 Unit: tablet Repeat number: 1 ibuprofen 800 mg oral tablet 1, tablet, By Mouth, 3 times a day, # 270 tablet, Refills 3, Tot. Refills 3, Maintenance, 02/09/24 1:13:00 PM EDT, Route to Pharmacy Electronically, [facility]/pharmacy #[id number], 168, cm, 02/09/24 12:56:00 EDT,Height, 107, kg, 02/10/23 13:11:00 EDT, Dry Weight Start Date: 02/09/24 Stop Date: 02/03/25 Status: Ordered Quantity: 270.0 Unit: tablet Repeat number: 4 LORazepam 0.5 mg oral tablet 1 tablet = 0.5 mg, By Mouth, 3 times a day, PRN for anxiety, # 12 tablet, 0 Refills, Maintenance, 01/20/25 12:26:00 PM EDT, Tablet, [facility] [id number] [facility] [employer], Partial fill upon patient request [...] 3 Refills, Maintenance, 02/09/24 1:13:00 PM EDT, [facility]/pharmacy #[id number], 168, cm, 02/09/24 12:56:00 EDT, Height, 107, kg, 02/10/23 13:11:00 EDT, Dry Weight Start Date: 02/09/24 Status: Ordered Quantity: 180.0 Unit: capsule Repeat number: 4 oxybutynin 5 mg/24 hours oral tablet, extended release 1 tablet, By Mouth, Daily at bedtime, DO NOT CRUSH OR CHEW, # 90 tablet, 3 Refills, Maintenance, 02/09/24 1:13:00 PM EDT, [facility]/pharmacy #[id number], 168, cm, 02/09/24 12:56:00 EDT, Height, 107, kg, 02/10/23 13:11:00 EDT, Dry Weight Start Date: 02/09/24 Stop Date: 02/03/25 Status: Ordered Quantity: 90.0 Unit: tablet Repeat number: 4 traMADol 50 mg oral tablet 1 tablet, By Mouth, Every 6 hours, # 120 tablet, 5 Refills, Maintenance, 10/28/24 2:05:00 PM EST, [facility]/pharmacy #[id number], 10/28/24, 168, cm, 04/08/24 8:20:00 EDT, [...] Team Personnel Name: Juan Banks MD Position: [facility] Physician - Primary Care Member Role: PCP Address: [address] [place], [place] [id number] Telecom: Name: Jeanie Jimenez RN Position: [facility] RN Member Role: Primary Care Nurse Name: Uyen Chanel RN Position: [facility] RN Member Role: Primary Care Nurse Name: Buzz Srivastava RN Position: [facility] RN Member Role: Primary Care Nurse Care Team Related Persons Name: MARCUS LARES Name: DORYS LARES Insurance Providers Guarantor name: ALETHARebecca KHOURYARNAUD Health Plan Information #: 1 Payer: [facility] Member Number: NA Policy Number: NA Group Number: NA
--- OUTSIDE RECORDS SUMMARY | 2025-02-06 10:11 | XMS_ITS | Encounter Summary ---
Author Organization [facility] Address [address] [place] [address] Care Team Providers Care Group Leader Semiconductor Processing Name Role Phone Juan Banks MD Primary Care Provider [phone] Alexandru Villatoro MD Unavailable [phone] Yara Martinez Unavailable [phone] Encounter Details Date Type Department Care Team (Late st Contact Info) Description 03/11/2022 Scanned Document [facility] Neurosurgery [place] 85 [facility] [address] [place] [address] Neurosurgery, Scan Social History Tobacco Use Types [...] on filedocumented in this encounter Care Teams Group Leader Semiconductor Processing Relationship Specialty Start Date End Date Juan Banks MD [address] [place] [address] [place] [address] PCP - General Internal Medicine 03/15/19 Alexandru Villatoro MD [address] [place] [address] Surgery, Neurosurgery 04/27/20 Yara Martinez PA [address] [place] [address] Physician Antique Repairer Pain Medicine 01/11/22 documented as of this encounter
--- OUTSIDE RECORDS SUMMARY | 2025-02-06 10:11 | XMS_ITS | Encounter Summary ---
Author Organization [facility] Address [address] [place] [address] Care Team Providers Care Area Field Person Name Role Phone Juan Banks MD Primary Care Provider Alexandru Villatoro MD Unavailable [phone] Yara Martinez Unavailable Encounter Details Date Type Department Care Team (Late st Contact Info) Description 11/26/2021 Scanned Document [facility] Neurosurgery [place] 85 [facility] [address] [place] [phone] Alexandru Villatoro MD 85 [facility] Abdiel [address] [place] [address] [phone] Social History Tobacco Use Types Packs/Day Years [...] on filedocumented in this encounter Care Teams Area Field Person Relationship Specialty Start Date End Date Juan Banks MD [address] [facility] [place] [address] PCP - General Internal Medicine 03/15/19 Alexandru Villatoro MD [address] [place] [address] Surgery, Neurosurgery 04/27/20 Yara Martinez PA [address] [place] [address] [phone] Physician Forestry Foreman Pain Medicine 01/11/22 documented as of this encounter
--- OUTSIDE RECORDS SUMMARY | 2025-02-06 10:11 | XMS_ITS | Encounter Summary ---
Author Organization [facility] Address [address] [place] [address] Care Team Providers Care Hand Nailer Name Role Phone Juan Banks MD Primary Care Provider Alexandru Villatoro MD Unavailable [phone] Yara Martinez Unavailable [phone] Encounter Details Date Type Department Care Team (Late st Contact Info) Description 06/16/2021 Scanned Document [facility] Neurosurgery [place] 85 [facility] [address] [place] [phone] Alexandru Villatoro MD 85 [facility] Abdiel [address] [place] [address] [phone] Social History Tobacco Use Types Packs/Day Years [...] on filedocumented in this encounter Care Teams Hand Nailer Relationship Specialty Start Date End Date Juan Banks MD [address] [place] [address] PCP - General Internal Medicine 03/15/19 Alexandru Villatoro MD [address] [place] [address] Surgery, Neurosurgery 04/27/20 Yara Martinez PA [address] [place] [address] [phone] Physician Yarn Spooler Pain Medicine 01/11/22 documented as of this encounter
--- OUTSIDE RECORDS SUMMARY | 2025-02-06 10:11 | XMS_ITS | Encounter Summary ---
Author Organization [facility] Address [address] [place] [address] Care Team Providers Care Fan Blade Truer Name Role Phone Juan Banks MD Primary Care Provider [phone] Alexandru Villatoro MD Unavailable [phone] Yara Martinez Unavailable [phone] Encounter Details Date Type Department Care Team (Late st Contact Info) Description 03/09/2022 Scanned Document [facility] Neurosurgery [place] 85 [facility] [address] [place] [address] Marilou Suh PA Valid Address Needed Social [...] on filedocumented in this encounter Care Teams Fan Blade Truer Relationship Specialty Start Date End Date Juan Banks MD [address] [place] [address] PCP - General Internal Medicine 03/15/19 Alexandru Villatoro MD [address] [place] [address] Surgery, Neurosurgery 04/27/20 Yara Martinez PA [address] [place] [address] Physician Financial Services Representative Pain Medicine 01/11/22 documented as of this encounter
--- OUTSIDE RECORDS SUMMARY | 2025-02-06 10:11 | XMS_ITS | Encounter Summary ---
Author Organization [facility] Address [address] [place] [address] Care Team Providers Care Timber Poisoner Name Role Phone Juan Banks MD Primary Care Provider Alexandru Villatoro MD Unavailable [phone] Yara Martinez Unavailable [phone] Encounter Details Date Type Department Care Team (Late st Contact Info) Description 03/11/2022 [facility] Neurosurgery [place] 85 [facility] [address] [place] [phone] Myla Appiah, PA-C 85 [place] [address] Social History Tobacco Use Types [...] on filedocumented in this encounter Care Teams Timber Poisoner Relationship Specialty Start Date End Date Juan Banks MD 470 [place] [place] [address] PCP - General Internal Medicine 03/15/19 Alexandru Villatoro MD [address] [place] [address] Surgery, Neurosurgery 04/27/20 Yara Martinez PA [address] [place] [address] [phone] Physician Railway Traction Line Worker Pain Medicine 01/11/22 documented as of this encounter
--- OUTSIDE RECORDS SUMMARY | 2025-02-06 10:11 | XMS_ITS | Patient Health Record ---
Author Organization [facility] Address [address] [facility] [address] [place] [address] Care Team Providers Care Environmental Compliance Specialist Name Role Phone Juan Banks Primary Care [...] day Active Ciclopirox 8 % 1 application Label Printer ally to toenail Once a day for [...] Date Coverage End Date Cigna [address] [place] [phone] [id number] Carito Lam Self - patient is the [...] vitamin D deficiency COVID vaccinated X 2 (Morphy) and [address] (Morphy) Surgical History Surgery Date(Month/Year) hysterectomy 02/04/2015 bilateral carpal tunnel release gastric bypass operation spinal stimulator X 2 right achilles tendon repair back surgery 1999 1986 Hospitalization History Reason Date(Month/Year) (girl) 1990 (boy) 1986 gastric bypass hysterectomy 02/04/2015 back surgery
--- OUTSIDE RECORDS SUMMARY | 2025-02-06 10:11 | XMS_ITS | Encounter Summary ---
Author Organization [facility] Address [address] [place] [address] Care Team Providers Care Accelerator Technician Name Role Phone Juan Banks MD Primary Care Provider [phone] Edmar Vallecillo PhD Unavailable [phone] Alexandru Villatoro MD Unavailable [phone] Yara Martinez Unavailable [phone] Encounter Details Date Type Department Care Team (Late st Contact Info) Description 05/07/2019 Scanned Document [facility] Neurosurgery [place] 85 [facility] [address] [place] [phone] Alexandru Villatoro MD 85 [facility] Abdiel [address] [place] [address] [phone] Social History Tobacco Use Types Packs/Day Years Used Date Smoking Tobacco: Never Assessed Comments Unknown Sex and Gender Information Value Date Recorded Sex Assigned at Female 07/19/2024 7:58 AM EDT Legal Sex Female 10:56 AM EDT Gender Identity Female 08/27/2021 7:16 AM EST Sexual Orientation Not on file documented as of this encounter Plan of Treatment Not on file documented as of this encounter Visit Diagnoses Not on filedocumented in this encounter Care Teams Accelerator Technician Relationship Specialty Start Date End Date Juan Banks MD [address] [place] [address] PCP - General Internal Medicine 03/15/19 Edmar Vallecillo, PhD Needs valid address Clinical Psychologist Psychology 07/16/19 04/26/20 Alexandru Villatoro MD [address] [place] [address] Surgery, Neurosurgery 04/27/20 Yara Martinez PA [address] [place] [address] Physician Forest Scientist Pain Medicine 01/11/22 documented as of this encounter
--- OUTSIDE RECORDS SUMMARY | 2025-02-06 10:11 | XMS_ITS | Encounter Summary ---
Author Organization [facility] Address [address] [place] [address] Care Team Providers Care Statue Carver Name Role Phone Juan Banks MD Primary Care Provider Alexandru Villatoro MD Unavailable Yara Martinez Unavailable [phone] Encounter Details Date Type Department Care Team (Late st Contact Info) Description 05/29/2024 Scanned Document [facility] Neurosurgery [place] 85 [facility] [address] [place] [phone] Marilou Suh PA Valid Address Needed Social [...] on filedocumented in this encounter Care Teams Statue Carver Relationship Specialty Start Date End Date Juan Banks MD [address] [place] [address] PCP - General Internal Medicine 03/15/19 Alexandru Villatoro MD [address] [place] [address] [place] [address] Surgery, Neurosurgery 04/27/20 Yara Martinez PA [address] [place] [address] [address] [place], [place] [phone] Physician Metal Coater Pain Medicine 01/11/22 documented as of this encounter
--- OUTSIDE RECORDS SUMMARY | 2025-02-06 10:11 | XMS_ITS | Encounter Summary ---
Author Organization [facility] Address [address] [place] [address] Care Team Providers Care Parking Ramp Attendant Name Role Phone Juan Banks MD Primary Care Provider Alexandru Villatoro MD Unavailable [phone] Yara Martinez Unavailable [phone] Encounter Details Date Type Department Care Team (Late st Contact Info) Description 05/02/2022 Scanned Document [facility] Neurosurgery [place] 85 [facility] [address] [place] [address] Neurosurgery, Scan Social History Tobacco Use Types [...] on filedocumented in this encounter Care Teams Parking Ramp Attendant Relationship Specialty Start Date End Date Juan Banks MD [address] [place] [address] PCP - General Internal Medicine 03/15/19 Alexandru Villatoro MD [address] [place] [address] [place] [address] Surgery, Neurosurgery 04/27/20 Yara Martinez PA [address] [place] [address] [address] [place] [address] Physician Dye Tank Tender Pain Medicine 01/11/22 documented as of this encounter
--- OUTSIDE RECORDS SUMMARY | 2025-02-06 10:11 | XMS_ITS | Encounter Summary ---
Author Organization [facility] Address [address] [place] [address] Care Team Providers Care Masonry Teacher Name Role Phone Juan Banks MD Primary Care Provider [phone] Alexandru Villatoro MD Unavailable [phone] Yara Martinez Unavailable Encounter Details Date Type Department Care Team (Late st Contact Info) Description 05/01/2020 Prep for Surgery [facility] [place] 31 [facility] 2nd Floor [address] [place] [phone] Cici Montano APRN [address] [place] [address] Preop testing (Primary Dx) Social History Tobacco [...] EDT 05/02/2020 4:35 PM EDT Cici Montano TARE MAN MICROBIOLOGY - GENERAL ORDER MIKE Final Result [facility] documented in this encounter Visit Diagnoses Diagnosis Preop testing- Primary Unspecified pre-operative examination documented in this encounter Care Teams Masonry Teacher Relationship Specialty Start Date End Date Juan Banks MD [address] [place] [address] PCP - General Internal Medicine 03/15/19 Alexandru Villatoro MD [address] [place] [address] Surgery, Neurosurgery 04/27/20 Yara Martinez PA [address] [place] [address] Physician Assembler Dc Field Ring Pain Medicine 01/11/22 documented as of this encounter
--- OUTSIDE RECORDS SUMMARY | 2025-02-06 10:12 | XMS_ITS | Encounter Summary ---
Author Organization [facility] Address [address] [place] [address] Care Team Providers Care Pastry Artist Name Role Phone Juan Banks MD Primary Care Provider [phone] Alexandru Villatoro MD Unavailable Yara Martinez Unavailable [phone] Encounter Details Date Type Department Care Team (Late st Contact Info) Description 09/15/2021 Scanned Document [facility] Neurosurgery [place] 85 [facility] [address] [place] [phone] Alexandru Villatoro MD 85 [facility] Abdiel [address] [place] [address] [phone] Social History Tobacco Use Types Packs/Day Years [...] on filedocumented in this encounter Care Teams Pastry Artist Relationship Specialty Start Date End Date Juan Banks MD 470 [facility] [place] [address] PCP - General Internal Medicine 03/15/19 Alexandru Villatoro MD [address] [place] [address] Surgery, Neurosurgery 04/27/20 Yara Martinez PA [address] [place] [address] [phone] Physician Egg Caser Pain Medicine 01/11/22 documented as of this encounter
--- OUTSIDE RECORDS SUMMARY | 2025-02-06 10:12 | XMS_ITS | Encounter Summary ---
Author Organization [facility] Address [address] [place] [address] Care Team Providers Care Glass Cutter Name Role Phone Juan Banks MD Primary Care Provider Alexandru Villatoro MD Unavailable [phone] Yara Martinez Unavailable Encounter Details Date Type Department Care Team (Late st Contact Info) Description 09/14/2021 Scanned Document [facility] Neurosurgery [place] 85 [facility] [address] [place] [phone] Alexandru Villatoro MD 85 [facility] Abdiel [address] [place] [address] [phone] Social History Tobacco Use Types Packs/Day Years [...] on filedocumented in this encounter Care Teams Glass Cutter Relationship Specialty Start Date End Date Juan Banks MD 470 [facility] [place] [address] PCP - General Internal Medicine 03/15/19 Alexandru Villatoro MD [address] [place] [address] Surgery, Neurosurgery 04/27/20 Yara Martinez PA [address] [place] [address] [phone] Physician Bulk Pallet Builder Pain Medicine 01/11/22 documented as of this encounter
--- OUTSIDE RECORDS SUMMARY | 2025-02-06 10:12 | XMS_ITS | Encounter Summary ---
Author Organization [facility] Address [address] [place] [address] Care Team Providers Care Insulation Packer Name Role Phone Juan Banks MD Primary Care Provider [phone] Alexandru Villatoro MD Unavailable [phone] Yara Martinez Unavailable Encounter Details Date Type Department Care Team (Late st Contact Info) Description 09/14/2021 Prep for Surgery [facility] 85 [facility] [address] [place] [phone] Maria G Hyatt APRN 85 [facility] Abdiel [address] [place] [address] [phone] Pre-op examination (Primary Dx) Social History Tobacco [...] Primary documented in this encounter Care Teams Insulation Packer Relationship Specialty Start Date End Date Juan Banks MD [address] [place] [address] PCP - General Internal Medicine 03/15/19 Alexandru Villatoro MD [address] [place] [address] Surgery, Neurosurgery 04/27/20 Yara Martinez PA [address] [place] [address] Physician Production Weigher Pain Medicine 01/11/22 documented as of this encounter
--- OUTSIDE RECORDS SUMMARY | 2025-02-06 10:12 | XMS_ITS | Clinical Summary ---
Author Organization [facility] Address [address] [place] [address] Care Team Providers Care Hybrid Tester Name Role Phone Juan Banks MD Primary Care Provider Alexandru Villatoro MD Unavailable [phone] Yara Martinez Unavailable [phone] Allergies Active Allergy Reactions Criticality Noted Date Comments Gabapentin Other (See Comments) Medium 05/06/2020 Pt states it is not good for her mentally - pt has been hospitalized after taking this med Lamotrigine Other (See Comments),Delirium/Con fusion/Psychosis High 04/27/2020 Dizziness/fuzzy head Medications * This document contains information received from the source organization and may not represent a complete record from that organization. ADVAIR DISKUS 500-50 MCG/DOSE diskus inhaler Take 1 insert by mouth 2 (two) times a day. Take this medication the morning of surgery. 1 9 Active OMEprazole (PriLOSEC) 40 MG capsule Take 1 capsule (40 mg total) by mouth every morning before breakfast. Take this medication the morning of surgery. 2 9 Active rosuvastatin (CRESTOR) 5 MG tablet Take 1 tablet (5 mg total) by mouth every morning. Take this medication the morning of surgery. Active albuterol (PROVENTIL HFA; VENTOLIN HFA) 108 (90 Base) MCG/ACT inhaler 2 puffs as needed. 1 Active LORazepam (ATIVAN) 0.5 MG tablet Take 1 tablet (0.5 mg total) by mouth 3 (three) times a day as needed. for anxiety 1 Active acetaminophen (TYLENOL) 325 MG tabletIndicati ons:Status post insertion of spinal cord stimulator Take 3 tablets (975 mg total) by mouth every 8 (eight) hours around the clock. 270 tablet 2 Active senna-docusate (SENNA-S) 8.6-50 MGIndications: Status post insertion of spinal cord stimulator Take 2 tablets by mouth nightly. 60 tablet 2 Active Additional Information Patient taking differently:2 tablet OralAs needed, Reason: Other, Reported on 07/04/2024 ibuprofen (MOTRIN) 800 mg tablet Take 1 tablet (800 mg total) by mouth. 2 Active hydrOXYzine HCl (ATARAX) 25 MG tablet TAKE 2 TABLETS BY MOUTH DAILY AT BEDTIME 2 Active oxybutynin (DITROPAN-XL) 5 MG 24 hr tablet TAKE 1 TABLET BY MOUTH EVERYDAY AT BEDTIME 2 Active traMADol (ULTRAM) 50 MG tablet Take 1 tablet (50 mg total) by mouth as needed. 2 Active ferrous sulfate 325 (65 FE) MG tablet Take 1 tablet (325 mg total) by mouth daily. 3 Active diclofenac (VOLTAREN) 1 % gelIndications :Trochanteric bursitis of both hips Apply topically 4 (four) times a day. Apply 1-2 grams to affected area 100 g 1 3 Active lidocaine (LIDODERM) 5 % patchIndicatio ns:Arthrodesis status APPLY 1 PATCH ON THE SKIN DAILY AND LEAVE ON FOR 12 HOURS, THEN REMOVE. PATCH MAY REMAIN ON SKIN FOR 12 HOURS PER DAY 90 patch 3 Active folic acid (FOLVITE) 1 MG tablet Take 1 tablet (1 mg total) by mouth daily. 4 Active Multiple Vitamin (multivitamin) capsule Take 1 capsule by mouth daily. Active Ascorbic Acid (VITAMIN C PO) Take by mouth daily. Active oxyCODONE (ROXICODONE) 5 MG immediate release tabletIndicati ons:Battery end of life of spinal cord stimulator,Sta tus post insertion of spinal cord stimulator Take 1 tablet (5 mg total) by mouth 4 times daily (every 6 hours) as needed for moderate pain or severe pain. Max Daily Amount: 20 mg 28 tablet 4 Active baclofen (LIORESAL) 10 MG tablet 1 tablet (10 mg total) by Mouth/Oral Cavity route 3 times a day. 4 Active Ascorbic Acid (Vitamin C) 500 MG Cap Take 500 mg by mouth. 3 02/21/20 23 Discontin ued(Thera py completed ) Active Problems Problem Noted Date Diagnosed Date [...] cord stimulator 03/15/2019 Lumbar radiculopathy 03/15/2019 Immunizations Immunization Administration Dates Next Due Covid-19 MRNA Vaccine [...] more drinks on one occasion? Never 07/04/2024 Comments No Sex and Gender Information Value [...] 03/10/2023, 05/31/2019 Medical Devices Implanted Type Area Sedimentationist Device Identifier Shelf Expiration Date Model / Serial / Lot Nail/Sachin Nail/Sachin Back Description:4 rods implanted Spinal Cord Stimulator Stimulator [id number] Lead Neurostimulator 60cm 5mm Vectris 1x8 Electrode Trl - [id number] Implanted:Qty: 1 on 12[place]26/2019 [place] [facility]/A: Back [employer] MINIMALLY INVASIVE T 10/28/2023 [id number] / / [id number] Lead Neurostimulator 60cm 5mm Vectris 1x8 Electrode Trl - [id number] Implanted:Qty: 1 on 12/26/2019 [place] Moh[place] [facility] Stimulator N/A: Back [employer] MINIMALLY INVASIVE T 10/29/2023 [id number] / / [id number] Neurostimulator Implantable Chrnc Pain Rs2 - [id number] Implanted:Qty: 1 on 05/06/2020 by Alexandru Villatoro MD at [facility] Stimulator Left: Buttocks [employer] MINIMALLY INVASIVE T 02/10/2021 [id number] / [id number] / [id number] Neurostimulator Implant Primeadvanced Surescan Mri - [id number] Implanted:Qty: 1 on 09/15/2021 by Alexandru Villatoro MD at [facility] Stimulator Left: Buttocks [employer] MINIMALLY INVASIVE T 11/12/2021 [id number] / [id number] / [id number] Leadership Program Internship Neurostimulator Mystim Mri [facility] Extension - [id number] Implanted:Qty: 1 on 09/15/2021 by Alexandru Villatoro MD at [facility] Stimulator [employer] MINIMALLY INVASIVE T [id number] / [id number] / [id number] Envelope Absorbable Lg 3.35x3in Polyarylate Minocycline - [id number] Implanted:Qty: 1 on 09/15/2021 by Alexandru Villatoro MD at [facility] Tissue Left: Buttocks [employer] MINIMALLY INVASIVE T 04/24/2022 [id number] / / [id number] Vectris Tm Surescan Mri Lead Kit For Spinal Cord Stimulation Implanted:Qty: 1 on 05/06/2020 by Alexandru Villatoro MD at [facility] Spine Thoracic [employer] MINIMALLY INVASIVE T 07/23/2023 [id number] / / [id number] Vectris Tm Surescan Mri Lead Kit For Spinal Cord Stimulation Implanted:Qty: 1 on 05/06/2020 by Alexandru Villatoro MD at [facility] Spine Thoracic [employer] MINIMALLY INVASIVE T 11/07/2023 [id number] / / [id number] Extension Lead 40cm Implanted:Qty: 1 on 07/15/2021 by Alexandru Villatoro MD at [facility] [employer] MINIMALLY INVASIVE T [id number] / [id number] / Extension Kit 40cm Implanted:Qty: 1 on 07/15/2021 by Alexandru Villatoro MD at [facility] [employer] MINIMALLY INVASIVE T [id number] / [id number] / Specify Surescan Mri 2x8 Implanted:Qty: 1 on 2022 by Alexandru Villatoro MD at [facility] [employer] MINIMALLY INVASIVE T 01/19/2025 [id number] / / [id number] Vanta Adaptivestim Implanted:Qty: 1 on 07/19/2024 by Alexandru Villatoro MD at [facility] N/A: Back Explanted Type Area Sedimentationist Device Identifier Shelf Expiration Date Model / Serial / Lot [id number] Kit Accessory .133in Injex Brianna Baso4 Biwing Flexible Removal - [id number] Explanted:Q[place]: 1 [place] [facility] [place]ulator [employer] MINIMALLY INVASIVE T [id number] / / [id number] Jacob-Sharon Explanted:Qty: 1 on 12[place] [facility] Other [id number] / / Description:tomasz Marina ot an implant (not implanted or explanted) only way to charge for it in [facility] C-Arm Drape Explanted:Qty: 2 on 12/26/[place] [facility] ADVANCED INSTRUMENTS [employer] [id number] / / Description:not an implant, c-arm drape, only way of charging in [facility] Wireless Externa Neurostimulator Explanted:Qty: 1 on 12/26/2019 by Mohan [place] [facility] N/A: Back [employer] MINIMALLY INVASIVE T [id number] / / [id number] Description:not an implant, only way to charge in [facility] External Neurostimulator Boot Explanted:Qty: 1 on 12/26/2019 by Mohan [place] [facility] N/A: Back [employer] MINIMALLY INVASIVE T [id number] / / [id number] Description:Not an implant, only way to charge for in [facility] Procedures Procedure Name Priority Date/Time [...] Comment:See Note 1 med[facility] Oxycodone INCONSISTENT( A) [facility] Oxymorphone NEGATIVE <50 ng/mL [facility] Comment:See Note 1 medMATCH Oxymorphone INCONSISTENT( A) [facility] Manny [facility] Comment: See Note 2 Note 1 This test was developed and its analytical performance characteristics have been determined by [facility]. It has not been cleared or approved [...] interpreting these drug results, please contact a [facility] Toxicology Specialist: [phone] ( ), M-F, 8am-6pm EST. Specimen from unspecified body site / Unknown 06/05/2019 4:18 PM EDT 06/07/2019 2:58 AM EDT Narrative Resulting Agency Comment Performing Organization Information: ?Site ID: [id number] ?Name: [facility] ?Address: [address] [place] [address], [place] [address] ?Director: Ashley Kelly MD Yara Ocampo APRN URINE ORDERABLES Final Result [facility] [address], [place] [address] from Last 3 Months or Most Recently Relevant to Health Maintenance [facility] Advance Directives * Full Code (Latest Code [...] 10:09 AM 09/15/2021 10:13 AM Care Teams Hybrid Tester Relationship Specialty Start Date End Date Juan Banks MD [address] [place] [address] PCP - General Internal Medicine 03/15/19 Alexandru Villatoro MD [address] [place] [address] Surgery, Neurosurgery 04/27/20 Yara Martinez PA [address] [place] [address] Physician Reheater Helper Pain Medicine 01/11/22
--- OUTSIDE RECORDS SUMMARY | 2025-02-06 10:12 | XMS_ITS | Clinical Summary ---
Author Organization [facility] Address [address] [place], [place] [id number] Care Team Providers Care Outboard System Operator Name Role Phone Juan Banks MD Primary Care Provider [phone] Allergies Active Allergy Reactions Criticality Noted Date [...] age to complete this topic Care Teams Outboard System Operator Relationship Specialty Start Date End Date Juan Banks MD [address] [place] [address] PCP - General Internal Medicine 06/11/21
--- OUTSIDE RECORDS SUMMARY | 2025-02-06 10:12 | XMS_ITS | Encounter Summary ---
Author Organization [facility] Address [address] [place] [address] Care Team Providers Care Ship'S Electronic Warfare Officer Name Role Phone Juan Banks MD Primary Care Provider [phone] Alexandru Villatoro MD Unavailable [phone] Yara Martinez Unavailable [phone] Encounter Details Date Type Department Care Team (Late st Contact Info) Description 01/11/2022 Telephone [facility] [place] [address] [facility] 2nd [place] [address] [place] [phone] Puja Sandoval MA [address] [place] [address] Social History Tobacco Use Types Packs/Day Years [...] Have you recently had an admission to SNF/Rehab/Shelter? No Have you traveled internationally or domestically in the last month? No documented in this encounter Plan of Treatment Not on file documented as of this encounter Visit Diagnoses Not on filedocumented in this encounter Care Teams Ship'S Electronic Warfare Officer Relationship Specialty Start Date End Date Juan Banks MD [address] [place] [address] PCP - General Internal Medicine 03/15/19 Alexandru Villatoro MD [address] [place] [address] Surgery, Neurosurgery 04/27/20 Yara Martinez PA [address] [place] [address] Physician Warehouse Worker 2Nd Shift Pain Medicine 01/11/22 documented as of this encounter
--- OUTSIDE RECORDS SUMMARY | 2025-02-06 10:12 | XMS_ITS | Clinical Summary ---
Author Organization [facility] Address [address] [place] [address] Phone Care Team Providers Care Pulp Drier Firer Name Role Phone Juan Banks MD Primary Care Provider [phone] Allergies Active Allergy Reactions Criticality Noted Date [...] OBESIT CARPAL TUNNEL RELEASE 09/2014 Bilateral PROCEDURE: CO NEUROPLASTY &/TRANSPOS MEDIAN NRV CARPAL TUNNE ANKLE SURGERY 2004 Right PROCEDURE: HISTORICAL ANKLE SURGERY OTHER SURGICAL HISTORY 2011 PROCEDURE: CO HYSTEROSCOPY ENDOMETRIAL ABLATION SECTION 1986 PROCEDURE: HISTORICAL [...] this topic Medical Devices Implanted Type Area Dairy Scientist Device Identifier Shelf Expiration Date Model / Serial / Lot Stent Uret [id number] Stretch W/O Gw - Sn/A - [id number] Implanted:Qty: 1 on 10/10/2024 by Yogi Kidd MD at [facility] Stents Left: Ureter [employer]/GYNECOLG Y 04/24/2027 [id number] / N/A / [id number] Insurance MEDICARE [facility] Advance Directives * Full Code - Confirmed [...] currently active code status orders. Care Teams Pulp Drier Firer Relationship Specialty Start Date End Date Juan Banks MD [address] [place] [address] PCP - General Internal Medicine 07/31/13
== END 2025-02-06 09:44 | disposition home or self-care (01) ==
LOC: HO.PMC 09:19
PROVIDERS: PCP Internal Medicine; Visit Provider Nurse Practitioner Family
DX: M96.1 Postlaminectomy syndrome, not elsewhere classified (principal); M51.369 Other intervertebral disc degeneration, lumbar region without mention of lumbar back pain or lower extremity pain; M54.16 Radiculopathy, lumbar region; M53.3 Sacrococcygeal disorders, not elsewhere classified; M70.61 Trochanteric bursitis, right hip; M70.62 Trochanteric bursitis, left hip; M54.50 Low back pain, unspecified; G89.29 Other chronic pain
CPT/HCPCS: 99214

== ENCOUNTER → 2025-02-06 09:19 | Outpatient (BNVA) | payer OTHER, SELFPAY | PROVIDERS: PCP Internal Medicine; Visit Provider Nurse Practitioner Family ==

== ENCOUNTER 2025-06-10 06:16 | Outpatient (REF) | payer OTHER, SELFPAY ==
--- NOTE | ~2025-06-10 | FL_ITS ---
EXAMINATION: XR FLUOROSCOPY WITH IMAGES CLINICAL INFORMATION: Sacrococcygeal disorders, not elsewhere classified. SI joint pain management. COMPARISON: None available. TECHNIQUE: Fluoroscopy provided to: Dr. Pascual Fluoroscopy time: 0.1 minutes DAP: 0.0523 mGycm2 Images: 4 FINDINGS: 4 fluoroscopic spot images obtained during bilateral SI joint pain management injections. Please refer to the full procedural report for details. FL/FL guidance in treatment room IMPRESSION: Fluoroscopic guidance. Electronically signed by: Leonel Boogie MD 06/10/2025 04:05 PM EDT
--- OUTSIDE RECORDS SUMMARY | 2025-06-10 06:19 | XMS_ITS | Encounter Summary ---
Author Organization [facility] Address [address] [place] [address] Care Team Providers Care Humanities Professor Name Role Phone Juan Banks MD Primary Care Provider [phone] Alexandru Villatoro MD Unavailable [phone] Yara Martinez Unavailable [phone] Encounter Details Date Type Department Care Team (Late st Contact Info) Description 03/09/2022 Scanned Document [facility] Neurosurgery [place] [address] [facility] [address] [place] [address] Marilou Suh PA Valid Address Needed Social [...] on filedocumented in this encounter Care Teams Humanities Professor Relationship Specialty Start Date End Date Juan Banks MD [address] [facility] [place] [address] PCP - General Internal Medicine 03/15/19 Alexandru Villatoro MD [address] [place] [address] Surgery, Neurosurgery 04/27/20 Yara Martinez PA [address] [place] [address] Physician Air Valve Repairer Pain Medicine 01/11/22 documented as of this encounter
--- OUTSIDE RECORDS SUMMARY | 2025-06-10 06:19 | XMS_ITS | Encounter Summary ---
Author Organization [facility] Address [address] [place] [address] Care Team Providers Care Shower Doors And Panels Fabricator Name Role Phone Juan Banks MD Primary Care Provider [phone] Alexandru Villatoro MD Unavailable [phone] Yara Martinez Unavailable Encounter Details Date Type Department Care Team (Late st Contact Info) Description 11/26/2021 Scanned Document [facility] Neurosurgery [place] [address] [facility] [address] [place] [phone] Alexandru Villatoro MD [address] [facility] Abdiel [address] [place] [phone] Social History Tobacco Use Types Packs/Day Years [...] on filedocumented in this encounter Care Teams Shower Doors And Panels Fabricator Relationship Specialty Start Date End Date Juan Banks MD [address] [facility] [place] [address] PCP - General Internal Medicine 03/15/19 Alexandru Villatoro MD [address] [place] [address] Surgery, Neurosurgery 04/27/20 Yara Martinez PA [address] [place] [address] [phone] Physician Multiple Coil Winder Pain Medicine 01/11/22 documented as of this encounter
--- OUTSIDE RECORDS SUMMARY | 2025-06-10 06:20 | XMS_ITS | Clinical Summary ---
Author Organization [facility] Address [address] [place] [address] Phone Care Team Providers Care Power Plant Technician Name Role Phone Juan Banks MD Primary Care Provider [phone] Allergies Active Allergy Reactions Criticality Noted Date [...] OBESIT CARPAL TUNNEL RELEASE 09/2014 Bilateral PROCEDURE: NE NEUROPLASTY &/TRANSPOS MEDIAN NRV CARPAL TUNNE ANKLE SURGERY 2004 Right PROCEDURE: HISTORICAL ANKLE SURGERY OTHER SURGICAL HISTORY 2011 PROCEDURE: NE HYSTEROSCOPY ENDOMETRIAL ABLATION SECTION 1986 PROCEDURE: HISTORICAL [...] 72 10/11/2024 8:34 AM EST Temperature 36.6 C (97.8 F) 10/11/2024 8:34 AM EST Respiratory Rate 18 10/11/2024 8:34 AM EST [...] Panel) 10/09/2024 Colorectal Cancer Screening: Colonoscopy 10/09/2024 HIV Screening 10/09/2024 Hepatitis C Screening 10/09/2024 Social Influencers of Health Screening 10/09/2024 Depression Screening 10/16/2024 Influenza Vaccine (#1) 2025 2, 07/08/2022, 08/13/2021, Additional history exists DTaP,Tdap,and Td Vaccines (3 - Td or Tdap) 01/18/2031 01/18/2021, 09/15/2000 Pneumococcal Vaccine: 50+ Years Completed 01/27/2023, 09/02/2015, 09/15/2000 HIB Vaccines Aged [...] this topic Medical Devices Implanted Type Area Carrier Associate Device Identifier Shelf Expiration Date Model / Serial / Lot Stent Uret [id number] Stretch W/O Gw - Sn/A - [id number] Implanted:Qty: 1 on 10/10/2024 by Yogi Kidd MD at [facility] Stents Left: Ureter [employer]/GYNECOLG Y 04/24/2027 [id number] / N/A / [id number] Insurance MEDICARE [facility] Advance Directives * Full Code - Confirmed [...] currently active code status orders. Care Teams Power Plant Technician Relationship Specialty Start Date End Date Juan Banks MD [address] [place] [address] PCP - General Internal Medicine 07/31/13
--- OUTSIDE RECORDS SUMMARY | 2025-06-10 06:20 | XMS_ITS | Patient Health Record ---
Author Organization [facility] Address [address] [facility] [address] [place] [address] Care Team Providers Care Voting Machine Mechanic Name Role Phone Juan Banks Primary Care [...] day Active Ciclopirox 8 % 1 application Network Control Operator ally to toenail Once a day; Duration: 365 days 10/31/2022 Active Albuterol Sulfate HFA [...] Insured Coverage Start Date Coverage End Date [id number] [place] [phone] [id number] Carito Lam Self - patient is the [...] vitamin D deficiency COVID vaccinated X 2 ([employer]) and [address] ([employer]) Surgical History Surgery Date(Month/Year) hysterectomy 02/04/2015 bilateral carpal tunnel release gastric bypass operation spinal stimulator X 2 right achilles tendon repair back surgery 1999 1986 Hospitalization History Reason Date(Month/Year) (girl) 1990 (boy) 1986 gastric bypass hysterectomy 02/04/2015 back surgery
--- OUTSIDE RECORDS SUMMARY | 2025-06-10 06:20 | XMS_ITS | Encounter Summary ---
Author Organization [facility] Address [address] [place] [address] Care Team Providers Care Curb Worker Name Role Phone Juan Banks MD Primary Care Provider [phone] Alexandru Villatoro MD Unavailable [phone] Yara Martinez Unavailable Encounter Details Date Type Department Care Team (Late st Contact Info) Description 05/01/2020 Prep for Surgery [facility] [place] [address] [place] [address] 2nd Floor [address] [place] [phone] Cici Montano APRN [address] [place] [address] [address], [place] [phone] Preop testing (Primary Dx) Social History Tobacco [...] EDT 05/02/2020 4:35 PM EDT Cici Montano REFERENCE TEST CLERK MICROBIOLOGY - GENERAL ORDER MIKE Final Result [facility] documented in this encounter Visit Diagnoses Diagnosis Preop testing- Primary Unspecified pre-operative examination documented in this encounter Care Teams Curb Worker Relationship Specialty Start Date End Date Juan Banks MD [address] [place] [address] PCP - General Internal Medicine 03/15/19 Alexandru Villatoro MD [address] [place] [address] Surgery, Neurosurgery 04/27/20 Yara Martinez PA [address] [place] [address] Physician Hand Knitter Pain Medicine 01/11/22 documented as of this encounter
--- OUTSIDE RECORDS SUMMARY | 2025-06-10 06:20 | XMS_ITS | Encounter Summary ---
Author Organization [facility] Address [address] [place] [address] Care Team Providers Care Patient Registrar Name Role Phone Juan Banks MD Primary Care Provider Alexandru Villatoro MD Unavailable [phone] Yara Martinez Unavailable Encounter Details Date Type Department Care Team (Late st Contact Info) Description 09/14/2021 Scanned Document [facility] Neurosurgery [place] [address] [facility] [address] [place] [phone] Alexandru Villatoro MD 85 [facility] [place] [address] [place] [address] [phone] Social History Tobacco Use Types Packs/Day Years [...] on filedocumented in this encounter Care Teams Patient Registrar Relationship Specialty Start Date End Date Juan Banks MD [address] [facility] [place] [address] PCP - General Internal Medicine 03/15/19 Alexandru Villatoro MD [address] [place] [address] Surgery, Neurosurgery 04/27/20 Yara Martinez PA [address] [place] [address] [phone] Physician Insulator Tester Pain Medicine 01/11/22 documented as of this encounter
--- OUTSIDE RECORDS SUMMARY | 2025-06-10 06:20 | XMS_ITS | Encounter Summary ---
Author Organization [facility] Address [address] [place] [address] Care Team Providers Care Wash Oil Pump Operator Name Role Phone Juan Banks MD Primary Care Provider [phone] Edmar Vallecillo PhD Unavailable [phone] Alexandru Villatoro MD Unavailable [phone] Yara Martinez Unavailable Encounter Details Date Type Department Care Team (Late st Contact Info) Description 05/07/2019 Scanned Document [facility] Neurosurgery [place] [address] [facility] [address] [place] [phone] Alexandru Villatoro MD [address] [facility] [place] [address] [place] [address] [phone] Social History Tobacco Use Types Packs/Day Years [...] on filedocumented in this encounter Care Teams Wash Oil Pump Operator Relationship Specialty Start Date End Date Juan Banks MD [address] [place] [address] PCP - General Internal Medicine 03/15/19 Edmar Vallecillo, PhD Needs valid address Clinical Psychologist Psychology 07/16/19 04/26/20 Alexandru Villatoro MD [address] [place] [address] Surgery, Neurosurgery 04/27/20 Yara Martinez PA [address] [place] [address] Physician Project Structural Engineer Pain Medicine 01/11/22 documented as of this encounter
--- OUTSIDE RECORDS SUMMARY | 2025-06-10 06:20 | XMS_ITS | Encounter Summary ---
Author Organization [facility] Address [address] [place] [address] Care Team Providers Care Poultry Dressing Worker Name Role Phone Juan Banks MD Primary Care Provider Alexandru Villatoro MD Unavailable [phone] Yara Martinez Unavailable [phone] Encounter Details Date Type Department Care Team (Late st Contact Info) Description 05/29/2024 Scanned Document [facility] Neurosurgery [place] [address] [facility] [address] [place] [phone] Marilou Suh PA Valid Address Needed Social [...] on filedocumented in this encounter Care Teams Poultry Dressing Worker Relationship Specialty Start Date End Date Juan Banks MD [address] [place] [address] PCP - General Internal Medicine 03/15/19 Alexandru Villatoro MD [address] [place] [address] [place] [address] Surgery, Neurosurgery 04/27/20 Yara Martinez PA [address] [place] [address] [address] [place], [place] [phone] Physician Senior Pensions Administrator Pain Medicine 01/11/22 documented as of this encounter
--- OUTSIDE RECORDS SUMMARY | 2025-06-10 06:20 | XMS_ITS ---
Author Name [facility] Organization Unknown Results Test Name/Text Value Interpretation Date Range Source Amylase SerPl-cCnc 21.0 unit/L Below low normal 10/09 4 29 - 103 [facility] Calcium SerPl-mCnc 9.2 mg/dL Normal 4 8.4 - 10.2 [facility] BUN/Creat SerPl 17.2 Normal 4 12 - 20 [facility] Chloride SerPl-sCnc 106.0 mmol/L Normal 10/09/20 2 4 98 - 107 [facility] Potassium SerPl-sCnc 4.5 mmol/L Normal 4 3.5 - 5.1 [facility] eGFRcr SerPlBld CKD-EPI 2020 106.0 mL/min/1.73m2 Normal 4 - [facility] CO2 SerPl-sCnc 29.0 mmol/L Normal 4 24 - 32 [facility] Anion Gap SerPl-sCnc 6.0 Normal 4 5 - 14 [facility] Creat SerPl-mCnc 0.64 mg/dL Normal 4 0.5 - 1 [facility] BUN SerPl-mCnc 11.0 mg/dL Normal 4 7 - 17 [facility] Sodium SerPl-sCnc 141.0 mmol/L Normal 4 135 - 145 [facility] Glucose SerPl-mCnc 97.0 mg/dL Normal 4 70 - 199 [facility] Lipase SerPl-cCnc 10.0 unit/L Below low normal 4 11 - 82 [facility] Hct VFr Bld Auto 40.8 % Normal 4 37 - 47 [facility] MCH RBC Qn Auto 31.5 pcg Normal 4 25 - 33 [facility] RDW RBC Auto-Rto 12.1 % Normal 4 12.1 - 16.2 [facility] Monocytes/leuk NFr Bld Auto 5.4 % Normal 4 2 - 12 [facility] MCHC RBC Auto-mCnc 33.8 g/dL Normal 4 32 - 36 [facility] Lymphocytes # Bld Auto 1.13 K/mcL Normal 4 1 - 3.2 [facility] Basophils/leuk NFr Bld Auto 0.5 % Normal 4 0 - 2 [facility] Neutrophils # Bld Auto 11.51 K/mcL Above high normal 4 1.8 - 7.8 [facility] Neutrophils/leuk NFr Bld Auto 84.8 % Above high normal 4 44 - 74 [facility] Monocytes # Bld Auto 0.73 K/mcL Normal 4 0 - 0.8 [facility] RBC # Bld Auto 4.38 M/mcL Normal 4 4.2 - 5.4 [facility] Platelet # Bld Auto 313.0 K/mcL Normal 10/09/20 2 4 150 - 450 [facility] Basophils # Bld Auto 0.07 K/mcL Normal 4 0 - 0.2 [facility] Lymphocytes/leuk NFr Bld Auto 8.3 % Below low normal 4 20 - 48 [facility] Eosinophil/leuk NFr Bld Auto 0.6 % Normal 4 0 - 6 [facility] Eosinophil # Bld Auto 0.08 K/mcL Normal 4 0 - 0.5 [facility] Hgb Bld-mCnc 13.8 g/dL Normal 4 12.5 - 16 [facility] PMV Bld Auto 8.1 FL Normal 4 7.4 - 11.4 [facility] MCV RBC Auto 93.2 FL Normal 4 78 - 100 [facility] WBC # Bld Auto 13.6 K/mcL Above high normal 10/09/20 2 4 4 - 10.5 [facility] WBC #/area UrnS HPF >20.0 /HPF Above high normal 4 0 - 5 [facility] RBC #/area UrnS HPF >20.0 /HPF Above high normal 4 0 - 3 [facility] Mucous Threads UrnS Ql Micro 1+ Normal 4 - [facility] Squamous Epithelial, Urine 5.0 /HPF Normal 4 0 - 5 [facility] Bacteria #/area UrnS HPF 4+ Abnormal 4 - [facility] Clarity Ur Cloudy Abnormal 4 - [facility] Nitrite Ur Ql Positive Abnormal 4 - [facility] Hgb Ur Ql Large Abnormal 4 - [facility] Glucose Ur Ql Negative Normal 4 - [facility] Prot Ur Strip-mCnc 30.0 mg/dL Abnormal 4 - [facility] Color Ur Yellow Normal 4 - [facility] pH Ur 5.5 pH Normal 4 5 - 8 [facility] Leukocyte esterase Ur Ql Strip Moderate Abnormal 4 - [facility] Sp Gr Ur 1.02 Normal 4 1.005 - 1.03 [facility] Ketones Ur-mCnc Negative Normal 4 - [facility] Chloride SerPl-sCnc 102.0 mmol/L Normal 07/11/20 2 4 98 - 107 [facility] BUN SerPl-mCnc 14.0 mg/dL Normal 4 8 - 21 [facility] Calcium SerPl-mCnc 9.7 mg/dL Normal 4 8.7 - 10.5 [facility] Sodium SerPl-sCnc 142.0 mmol/L Normal 4 136 - 145 [facility] Anion Gap Bld-sCnc 13.0 Normal 4 7 - 17 [facility] Creat SerPl-mCnc 0.7 mg/dL Normal 4 0.4 - 1.1 [facility] Potassium SerPl-sCnc 3.7 mmol/L Normal 4 3.4 - 5.3 [facility] BUN/Creat SerPl 20.0 Ratio Normal 4 10 - 25 [facility] Glucose SerPl-mCnc 67.0 mg/dL Normal 4 65 - 99 [facility] GFR/BSA.pred SerPlBld NUG-WSR-KgNWjx >90.0 Normal 4 59 - [facility] CO2 SerPl-sCnc 27.0 mmol/L Normal 4 22 - 33 [facility] Hgb A1c MFr Bld 5.7 % Above high normal 02 4 - 5.7 [facility] Est. average glucose Bld gHb Est-mCnc 117.0 mg/dL Normal 4 [facility] INR PPP Blood/anticoagulant ratio of specimen is unsatisfactory for testing, please repeat. Normal 4 [facility] COMMENT Blood/anticoagulant ratio of specimen is unsatisfactory for testing, please repeat. Normal 4 [facility] Prothrombin time Blood/anticoagulant ratio of specimen is unsatisfactory for testing, please repeat. Normal 4 10 - 13.5 [facility] Anticoagulant Information not given Normal 4 [facility] Hct VFr Bld Auto 42.3 % Normal 4 35 - 47 [facility] Basophils num Bld Auto 0.11 Thou/uL Normal 4 0 - 0.2 [facility] Platelet num Bld Auto 348.0 Thou/uL Normal 4 150 - 450 [facility] Neutrophils num Bld Auto 4.78 Thou/uL Normal 4 2 - 7.5 [facility] Imm Granulocytes num Bld Auto 0.03 Thou/uL Normal 4 0 - 0.1 [facility] Neutrophils/leuk NFr Bld Auto 65.4 % Normal 4 [facility] PMV Bld Auto 9.1 fL Normal 4 7.5 - 12.5 [facility] Eosinophil/leuk NFr Bld Auto 2.1 % Normal 4 [facility] RDW RBC Auto-Rto 12.4 % Normal 4 11.5 - 14.5 [facility] Monocytes/leuk NFr Bld Auto 5.6 % Normal 4 [facility] Eosinophil num Bld Auto 0.15 Thou/uL Normal 4 0 - 0.7 [facility] MCV RBC Auto 97.0 fL Normal 4 80 - 100 [facility] RBC num Bld Auto 4.35 Mil/uL Normal 4 4 - 5.4 [facility] Lymphocytes/leuk NFr Bld Auto 25.0 % Normal 4 [facility] Lymphocytes num Bld Auto 1.83 Thou/uL Normal 4 1.5 - 4.5 [facility] Imm Granulocytes/leuk NFr Bld Auto 0.4 % Normal 4 [facility] WBC num Bld Auto 7.3 Thou/uL Normal 4 4 - 11 [facility] Basophils/leuk NFr Bld Auto 1.5 % Normal 4 [facility] MCH RBC Qn Auto 30.8 pg Normal 4 27 - 31 [facility] MCHC RBC Auto-mCnc 31.7 g/dL Normal 4 30 - 36 [facility] Hgb Bld-mCnc 13.4 g/dL Normal 4 11.7 - 15.7 [facility] Monocytes num Bld Auto 0.41 Thou/uL Normal 4 0.2 - 1.5 [facility] History of Medication Use Medication Directions Dispensed Refills Start Date End Date Stat us ondansetron (PF) (ZOFRAN) injection 4 mg 4 mg, intravenous, Once, On Mon10/09/24 at 1909, For 1 dose 10/09/2024 4 completed cefTRIAXone (ROCEPHIN) 1 g in sterile water 10 mL IV syringe 1 g, intravenous, at 200 mL/hr, Administer over 3 Minutes, Once, On Mon10/09/24 at 1413, For 1 dose, Do not administer simultaneously with any calcium containing solutions via a Y-site in any patient., Indication: Urinary Tract/Genitourinary 10/09/2024 4 completed sodium chloride 0.9 % bolus 1,000 mL 1,000 mL, intravenous, at 1,000 mL/hr, Administer over 1 Hours, Once, On Mon10/09/24 at 1326, For 1 dose 10/09/2024 4 completed Ascorbic Acid (Vitamin C) 500 MG Cap Take 500 mg by mouth. 10/21/2022 3 aborted hydrOXYzine HCl (ATARAX) 25 MG tablet TAKE 2 TABLETS BY MOUTH DAILY AT BEDTIME 06/28/2022 active diazepam (VALIUM) 10 MG tablet Take 1 tablet (10 mg total) by mouth 4 times daily (every 6 hours) as needed for anxiety (Take 1 tablet 2 hours before MRI). 03/25/2022 active sulfamethoxazole-tr imethoprim (BACTRIM DS,SEPTRA DS) 800-160 MG per tablet Take 1 tablet by mouth every 12 (twelve) hours around the clock. 02/08/2022 active HYDROmorphone (DILAUDID) 2 MG tablet Take 1 tablet (2 mg total) by mouth every 3 (three) hours as needed for moderate pain. Max Daily Amount: 16 mg 01/25/2022 active senna-docusate (SENNA-S) 8.6-50 MG Take 2 tablets by mouth nightly. 01/25/2022 active ibuprofen (MOTRIN) 800 mg tablet Take 1 tablet (800 mg total) by mouth. 01/20/2022 active LORazepam (ATIVAN) 0.5 MG tablet Take 0.5 mg by mouth 3 (three) times a day as needed. for anxiety 08/27/2021 active OMEprazole (PriLOSEC) 40 MG capsule Take 40 mg by mouth every morning before breakfast. Take this medication the morning of surgery. 05/21/2019 active ADVAIR DISKUS 500-50 MCG/DOSE diskus inhaler Take 1 insert by mouth 2 (two) times a day. Take this medication the morning of surgery. 01/15/2019 active Cannabis (MARIJUANA) [facility] Prescription Strength Take by mouth daily as needed. active rosuvastatin (CRESTOR) 5 MG tablet Take 5 mg by mouth every morning. Take this medication the morning of surgery. active Allergies Allergen Reaction Severity Comment Documented Date Source Statu s GABAPENTIN OTHER (SEE COMMENTS)OTHER Pt states it is not good for her mentally - pt has been hospitalized after taking this med 05/06/2020 [facility] active LAMOTRIGINE DELERIUM/CONFUS ION/PSYCHOSISOT HER Dizziness/fuzzy head 04/27/2020 [facility] active Problems Problem Status Onset Date Problem Type Date of Resolution Source Pyelonephritis active EncounterDiagnosisAct [facility] Ureterolithiasis active EncounterDiagnosisAct [facility] Asthma active 2024-07-10 ProblemAct [facility] Anxiety active 2024-07-10 ProblemAct [facility] Pain associated with wound active 2021-07-05 ProblemAct [facility] Status post insertion of spinal cord stimulator active 2019-03-15 ProblemAct [facility] Sacroiliitis active 2019-05-31 ProblemAct [facility] GERD (gastroesophageal reflux disease) active 2024-07-10 ProblemAct [facility] Marijuana use active 2024-07-10 ProblemAct [facility] Morbid obesity active 2024-07-[address] Lumbar radiculopathy active 2019-03-15 ProblemAct [facility] Postoperative visit active 2020-05-09 ProblemAct [facility] Chronic midline low back pain without sciatica active 2021-12-24 ProblemAct [facility] Hyperlipidemia active 2024-07-[address] Trochanteric bursitis of both hips active 2019-09-09 ProblemAct [facility] Spinal arachnoid cyst active 2022-06-27 ProblemAct [facility] Postlaminectomy syndrome, cervical region active 2020-05-06 ProblemAct [facility] Vaping nicotine dependence, non-tobacco product active 2024-07-10 ProblemAct [facility] Immunizations Vaccine Date Source Lot Number Status Influenza (AFLURIA/FLUZONE) Inactivated/Split Quadrivalent with Preservative IM 08/13/2021 [facility] [id number] completed Covid-19 MRNA Vaccine - Pfiz er 12+ (Purple Cap) 03/01/2021 [facility] [id number] completed Covid-19 MRNA Vaccine - Pfiz er 12+ (Purple Cap) 02/08/2021 [facility] [id number] completed Tdap 01/18/2021 [facility] [id number] completed Influenza Inactivated/Split Preservative Free IM 06/05/2020 [facility] completed Influenza Inactivated/Split Preservative Free IM 06/28/2019 [facility] completed Influenza (AFLURIA/FLUZONE) Inactivated/Split Quadrivalent with Preservative IM 06/25/2018 [facility] [id number] completed Influenza Inactivated/Split Preservative Free IM 06/25/2018 [facility] [id number] completed Influenza (AFLURIA/FLUZONE) Inactivated/Split Quadrivalent with Preservative IM 07/17/2017 [facility] [id number] completed Influenza (AFLURIA/FLUZONE) Inactivated/Split Quadrivalent with Preservative IM 08/09/2016 [facility] [id number] completed Pneumococcal Polysaccharide 23-Valent 09/02/2015 [facility] [id number] completed Influenza (AFLURIA/FLUZONE) Inactivated/Split Quadrivalent with Preservative IM 07/21/2015 [facility] UNK completed Influenza (AFLURIA/FLUZONE) Inactivated/Split Quadrivalent with Preservative IM 08/14/2014 [facility] UNK completed Influenza (AFLURIA/FLUZONE) Inactivated/Split Quadrivalent with Preservative IM 07/10/2014 [facility] [id number] completed Influenza (AFLURIA/FLUZONE) Inactivated/Split Quadrivalent with Preservative IM 10/02/2013 [facility] [id number] completed Encounters Encounter Type Encounter Reason Primary Diagnosis Location Date Emergency L side pain vomiting Tubulo-inte rstitial nephritis, not specified as acute or chronic [facility] 10/09/2024 Ambulatory Spine/Other Spine/Other [facility] 09/02/2024 Ambulatory Presence of other specified functional implants Presence of other specified functional implants [facility] 08/05/2024 Ambulatory Encounter for adjustment and management of neurostimulator Encounter for adjustment and management of neurostimulator [facility] 07/19/2024 Ambulatory Encounter for other preprocedural examination Encounter for other preprocedural examination [facility] 07/10/2024 Ambulatory Encounter for other preprocedural examination Encounter for other preprocedural examination [facility] 07/10/2024 Ambulatory Encounter for adjustment and management of neurostimulator Encounter for adjustment and management of neurostimulator [facility] 06/28/2024 Ambulatory [facility] 05/29/2024 Ambulatory [facility] 02/01/2024 Ambulatory Trochanteric bursiti s, right hip Trochanteric bursitis, right hip [facility] 10/02/2023 Ambulatory Trochanteric bursiti s, right hip Trochanteric bursitis, right hip [facility] 07/20/2023 Ambulatory [facility] 06/30/2023 Ambulatory Trochanteric bursitis, right hip [facility] 05/17/2023 Ambulatory Trochanteric bursitis, right hip [facility] 03/10/2023 Ambulatory Trochanteric bursitis, right hip [facility] 02/20/2023 Ambulatory Trochanteric bursitis, right hip [facility] 09/26/2022 Ambulatory Presence of othe r specified functional implants [facility] 07/26/2022 Ambulatory Presence of othe r specified functional implants [facility] 06/03/2022 Ambulatory Trochanteric bursitis, right hip [facility] 05/30/2022 Ambulatory Trochanteric bursitis, right hip [facility] 05/26/2022 Ambulatory Presence of othe r specified functional implants [facility] 03/21/2022 Ambulatory Presence of othe r specified functional implants [facility] 02/17/2022 Ambulatory Presence of othe r specified functional implants [facility] 02/17/2022 Ambulatory Postlaminectomy syndrome, not elsewhere classified [facility] 02/10/2022 Ambulatory Presence of othe r specified functional implants [facility] 2022 Ambulatory Encounter for preprocedural laboratory examination [facility] 01/22/2022 Ambulatory Encounter for ot her preprocedural examination [facility] 01/12/2022 Ambulatory Postlaminectomy syndrome, not elsewhere classified [facility] 12/24/2021 Ambulatory [facility] 12/09/2021 Ambulatory Presence of othe r specified functional implants [facility] 11/09/2021 Ambulatory Other injury of unspecified body region, initial encounter [facility] 10/04/2021 Ambulatory Encounter for ot her specified surgical aftercare [facility] 09/28/2021 Ambulatory Presence of othe r specified functional implants [facility] 09/15/2021 Ambulatory Encounter for ot her preprocedural examination [facility] 09/14/2021 Ambulatory [facility] 08/31/2021 Ambulatory Trochanteric bursitis, right hip [facility] 08/30/2021 Ambulatory Presence of othe r specified functional implants [facility] 08/27/2021 Ambulatory Other specified postprocedural states [facility] 08/02/2021 Ambulatory Other injury of unspecified body region, initial encounter [facility] 07/15/2021 Care Team Organization Name Specialty Phone Email Start Date End Da te [facility] JOVEL [facility] 10/13/2024 [facility] Sherri Primary [facility] 10/11/2024 [facility] Primary [facility] 10/09/2024 [facility] Primary [facility] 10/09/2024 [facility] Primary [facility] 07/26/2022 01/01/2025 [facility] 05/25/2021 06/03/2022
--- OUTSIDE RECORDS SUMMARY | 2025-06-10 06:20 | XMS_ITS | Encounter Summary ---
Author Organization Formerly [facility] Address [address] [place] [id number] Care Team Providers Care Research Professor Of Biostatistics Name Role Phone Juan Banks MD Primary Care Provider Alexandru Villatoro MD Unavailable [phone] Yara Martinez Unavailable [phone] Reason for Visit * Reason Comments Medication Refill Encounter Details Date Type Department Care Team (Late st Contact Info) Description 01/07/2022 Refill [facility] Neurosurgery [place] [address] [facility] [address] [place] [phone] Marilou Suh PA Valid Address Needed [...] region documented in this encounter Care Teams Research Professor Of Biostatistics Relationship Specialty Start Date End Date Juan Banks MD [facility] [place] [address] PCP - General Internal Medicine 03/15/19 Alexandru Villatoro MD [address] [place] [id number] Surgery, Neurosurgery 04/27/20 Yara Martinez PA [address] [place] [address] Physician Consumer Insights Specialist Pain Medicine 01/11/22 documented as of this encounter
--- OUTSIDE RECORDS SUMMARY | 2025-06-10 06:20 | XMS_ITS | Encounter Summary ---
Author Organization Formerly [facility] Address [address] [place] [address] Care Team Providers Care Longwall Shearer Operator Name Role Phone Juan Banks MD Primary Care Provider Alexandru Villatoro MD Unavailable [phone] Yara Martinez Unavailable Encounter Details Date Type Department Care Team (Late st Contact Info) Description 03/11/2022 [facility] Medical [facility] Neurosurgery [place] 85 [facility] [address] [place] [phone] Myla Appiah, PA-C [address] [place] [address] Social History Tobacco Use Types [...] on filedocumented in this encounter Care Teams Longwall Shearer Operator Relationship Specialty Start Date End Date Juan Banks MD [address] [facility] [place] [address] PCP - General Internal Medicine 03/15/19 Alexandru Villatoro MD [address] [place] [id number] Surgery, Neurosurgery 04/27/20 Yara Martinez PA [address] [place] [address] [phone] Physician Dining Service Inspector Pain Medicine 01/11/22 documented as of this encounter
--- OUTSIDE RECORDS SUMMARY | 2025-06-10 06:20 | XMS_ITS | Encounter Summary ---
Author Organization Formerly [facility] Address [address] [place] [address] Care Team Providers Care Manager Visual Name Role Phone Juan Banks MD Primary Care Provider [phone] Alexandru Villatoro MD Unavailable [phone] Yara Martinez Unavailable Encounter Details Date Type Department Care Team (Late st Contact Info) Description 09/14/2021 Prep for Surgery [facility] 85 [facility] [address] [place] [phone] Maria G Hyatt APRN 85 [facility] Abdiel [address] [place] [address] [phone] Pre-op examination (Primary Dx) Social History Tobacco [...] Primary documented in this encounter Care Teams Manager Visual Relationship Specialty Start Date End Date Juan Banks MD [address] [place] [address] PCP - General Internal Medicine 03/15/19 Alexandru Villatoro MD [address] [place] [address] Surgery, Neurosurgery 04/27/20 Yara Martinez PA [address] [place] [id number] Physician [place] Soaping Machine Operator Pain Medicine 01/11/22 documented as of this encounter
--- OUTSIDE RECORDS SUMMARY | 2025-06-10 06:20 | XMS_ITS | Encounter Summary ---
Author Organization [facility] Address [address] [place] [address] Care Team Providers Care Backpackers Manager Name Role Phone Juan Banks MD Primary Care Provider [phone] Alexandru Villatoro MD Unavailable [phone] Yara Martinez Unavailable [phone] Encounter Details Date Type Department Care Team (Late st Contact Info) Description 06/16/2021 Scanned Document [facility] Neurosurgery [place] 85 [facility] [address] [place] [phone] Alexandru Villatoro MD 85 [facility] [address] [place] [address] [phone] Social History Tobacco Use Types Packs/Day Years [...] on filedocumented in this encounter Care Teams Backpackers Manager Relationship Specialty Start Date End Date Juan Banks MD [address] [place] [address] PCP - General Internal Medicine 03/15/19 Alexandru Villatoro MD [address] [place] [address] Surgery, Neurosurgery 04/27/20 Yara Martinez PA [address] [place] [phone] Engineer Pain Medicine 01/11/22 documented as of this encounter
--- OUTSIDE RECORDS SUMMARY | 2025-06-10 06:20 | XMS_ITS | Clinical Summary ---
Author Organization [facility] Address [address] [place] [address] Care Team Providers Care Correctional Probation Officer Name Role Phone Juan Banks MD Primary Care Provider [phone] Alexandru Villatoro MD Unavailable [phone] Yara Martinez Unavailable [phone] Allergies Active Allergy Reactions Criticality Noted [...] 88 09/02/2024 10:47 AM EST Temperature 36.7 C (98 F) 09/02/2024 10:47 AM EST Respiratory Rate 20 [...] Zoster (Shingles) Vaccine (1 of 2) 2021 COVID-19 Vaccine ( - 2023-2 5 season) 2024 03/01/2021, 02/08/2021 Influenza Vaccine 05/16/2025 07/08/2022, , 08/13/2021, Additional history exists DTaP/Tdap/Td Vaccines (2 - T d or Tdap) 01/18/2031 01/18/2021 Chronic Controlled Substance Toxicology Screening Discontinued 06/05/2019, 05/31/2019, 03/31/2019 Chronic Controlled Substance User PDMP Review Discontinued 03/10/2023, 05/31/2019 Medical Devices Implanted Type Area Assembly Hand Device Identifier Shelf Expiration Date Model / Serial / Lot Nail/Sachin Nail/Sachin Back Description:4 rods implanted Spinal Cord Stimulator Stimulator [id number] Lead Neurostimulator 60cm 5mm Vectris 1x8 Electrode Trl - [id number] Implanted:Qty: 1 on 12/26/2019 by Mohan Richard MD at [facility] Stimulator N/A: Back [employer] MINIMALLY INVASIVE T 10/28/2023 [id number] / / [id number] Lead Neurostimulator 60cm 5mm Vectris 1x8 Electrode Trl - [id number] Implanted:Qty: 1 on 12/26/2019 by Mohan Richard MD at [facility] Stimulator N/A: Back [employer] MINIMALLY INVASIVE T 10/29/2023 [id number] / / [id number] Neurostimulator Implantable Chrnc Pain Rs2 - [id number] Implanted:Qty: 1 on 05/06/2020 by Alexandru Villatoro MD at [facility] Stimulator Left: Buttocks [employer] MINIMALLY INVASIVE T 02/10/2021 [id number] / [id number] / [id number] Neurostimulator Implant Primeadvanced Surescan Mri - [id number] Implanted:Qty: 1 on 09/15/2021 by Alexandru Villatoro MD at [facility] Stimulator Left: Buttocks [employer] MINIMALLY INVASIVE T 11/12/2021 [id number] / [id number] / [id number] Monogram Technician Neurostimulator Mystim Mri Tc Extension - [id number] Implanted:Qty: 1 on 09/15/2021 by Alexandru Villatoro MD at [facility] Stimulator [employer] MINIMALLY INVASIVE T [id number] / [id number] / [id number] Envelope Absorbable Lg 3.35x3in Polyarylate Minocycline - [id number] Implanted:Qty: 1 on 09/15/2021 by Alexandru Villatoro MD at [facility] Tissue Left: Buttocks [employer] MINIMALLY INVASIVE T 04/24/2022 [id number] / / [id number] Vectris Tm Surescan Mri Lead Kit For Spinal Cord Stimulation Implanted:Qty: 1 on 05/06/2020 by Alexandru Villatoro MD at [facility] Spine Thoracic [employer] MINIMALLY INVASIVE T 07/23/2023 [id number] / / [id number] Vectris Tm Surescan Mri Lead Kit For Spinal Cord Stimulation Implanted:Qty: 1 on 05/06/2020 by Alexandru Villatoro MD at [facility] Spine Thoracic [employer] MINIMALLY INVASIVE T 11/07/2023 [id number] / / [id number] Extension Lead 40cm Implanted:Qty: 1 on 07/15/2021 by Alexandru Villatoro MD at [facility] [employer] MINIMALLY INVASIVE T [id number] / [id number] / Extension Kit 40cm Implanted:Qty: 1 on 07/15/2021 by Alexandru Villatoro MD at [facility] [employer] MINIMALLY INVASIVE T [id number] / [id number] / Specify Surescan Mri 2x8 Implanted:Qty: 1 on 2022 by Alexandru Villatoro MD at [facility] [employer] MINIMALLY INVASIVE T 01/19/2025 [id number] / / [id number] Vanta Adaptivestim Implanted:Qty: 1 on 07/19/2024 by Alexandru Villatoro MD at [facility] N/A: Back Explanted Type Area Assembly Hand Device Identifier Shelf Expiration Date Model / Serial / Lot [id number] Kit Accessory .133in Injex Brianna Baso4 Biwing Flexible Removal - [id number] Explanted:Qty: 1 on 12/26/2019 at [facility] Stimulator [employer] MINIMALLY INVASIVE T [id number] / / [id number] C-Armor Explanted:Qty: 1 on 12/26/2019 at [facility] Other [id number] / / Description:Del bangura, n ot an implant (not implanted or explanted) only way to charge for it in [facility] C-Arm Drape Explanted:Qty: 2 on 12/26/2019 at [facility] [employer] CYNTHIA [id number] / / Description:not an implant, c-arm drape, only way of charging in [facility] Wireless Externa Neurostimulator Explanted:Qty: 1 on 12/26/2019 by Mohan Richard MD at [facility] N/A: Back [employer] MINIMALLY INVASIVE T [id number] / / [id number] Description:not an implant, only way to charge in [facility] External Neurostimulator Boot Explanted:Qty: 1 on 12/26/2019 by Mohan Richard MD at [facility] N/A: Back [employer] MINIMALLY INVASIVE T [id number] / / [id number] Description:Not an implant, only way to charge for in [facility] Procedures Procedure Name Priority Date/Time Associated [...] analytical performance characteristics have been determined by [employer]. It has not been cleared or approved by the FDA. This assay has been validated pursuant to the CLIA regulations and is used for clinical purposes. Note 2 This drug testing is for medical treatment only. Analysis was performed as non-forensic testing and these results should be used only by healthcare providers to render diagnosis or treatment, or to monitor progress of medical conditions. [employer] comments are: - present when drug test results may be the result of metabolism of one or more drugs or when results are inconsistent with prescribed medication(s) listed. - may be blank when drug results are consistent with prescribed medication(s) listed. For assistance with interpreting these drug results, please contact a [employer] Toxicology Specialist: [phone] ( ), M-F, 8am-6pm EST. Specimen from unspecified body site / Unknown 06/05/2019 4:18 PM EDT 06/07/2019 2:58 AM EDT Narrative Resulting Agency Comment Performing Organization Information: Site ID: [id number] Name: [facility] Address: [address] [place] [address], [facility] [place] [address] Director: Ashley Kelly MD Yara Ocampo APRN URINE ORDERABLES Final Result [facility] [place] [address], [facility] [place] [address] from Last 3 Months or Most Recently Relevant to Health Maintenance Insurance CIGNA HMO CIGNA HMO CIG HMO Advance Directives * Full Code (Latest Code [...] 10:09 AM 09/15/2021 10:13 AM Care Teams Correctional Probation Officer Relationship Specialty Start Date End Date Juan Banks MD [address] [place] [address] PCP - General Internal Medicine 03/15/19 Alexandru Villatoro MD [address] [place] [address] Surgery, Neurosurgery 04/27/20 Yara Martinez PA [address] [place] [address] Physician Double Bass Player Pain Medicine 01/11/22
--- OUTSIDE RECORDS SUMMARY | 2025-06-10 06:20 | XMS_ITS | Clinical Summary ---
Author Organization [facility] Address [address] [facility] [address] [place] [address] Phone Care Team Providers Care Qualitative Field Coordinator Name Role Phone Juan Banks MD Primary Care Provider Allergies Active Allergy Reactions Criticality Noted Date Comments Other 06/05/2018 Lamictal Medications ibuprofen (ADVIL,MOTRIN) 800 MG tablet Take 800 mg by mouth every 6 (six) hours as needed for pain (specific location in comments). Active carisoprodol (SOMA) 350 MG tablet Take 350 mg by mouth 4 (four) times a day as needed for muscle spasms. Active Active Problems No known active problems Social History Tobacco Use Types Packs/Day Years Used Date Smoking Tobacco: Former Cigarettes Q uit: 2013 Smokeless Tobacco: Never Alcohol Use Standard Drinks/Week Comments No 0 (1 standard drink = 0.6 oz pur e alcohol) Education Answer Date Recorded Are you interested in more education? Not on charissa e 02/09/2023 Are you concerned about learning? Not on file 02/09/2023 No 02/09/2023 No 02/09/2023 Digital Access Answer Date Recorded No 03/12/2023 No 03/12/2023 No 03/12/2023 Reliable internet access at home? Not on file 03/12/2023 Device with a working camera? Not on file Comments Unknown Sex and Gender Information Value Date Recorded Sex Assigned at Not on file Legal Sex Female 6:38 PM EST Gender Identity Not on file Sexual Orientation Not on file Last Filed Vital Signs Vital Sign Reading Time Taken Comments Blood Pressure - - Pulse - - Temperature - - Respiratory Rate - - Oxygen Saturation - - Inhaled Oxygen Concentration - - Weight 81.6 kg (180 lb) 06/05/2018 8:10 AM EDT Height 170.2 cm (5' 7 ) 06/05/2018 8:10 AM EDT Body Mass Index 28.19 06/05/2018 8:10 AM EDT Plan of Treatment Health Maintenance Due Date Last Done Comments LIPID PANEL 1971 DEPRESSION SCREENING 1983 SMOKING Hx and SMOKELESS TOBACCO SCREENING 01/25/1984 HEPATITIS C SCREENING 1989 HIV ONE-TIME SCREENING (18-65 YEARS) 1989 PAP SMEAR 01/25/1992 MAMMOGRAM 2011 COLOGUARD 01/25/2016 COLONOSCOPY 01/25/2016 COLORECTAL CANCER SCREENING 01/25/2016 FIT TEST 01/25/2016 FOBT 01/25/2016 SIGMOIDOSCOPY 01/25/2016 VIRTUAL COLONOSCOPY 01/25/2016 PNEUMOCOCCAL VACCINES (50+ years) (1 of 1 - PCV) 2021 ZOSTER VACCINES (2 of 2) 03/24/2021 01/27/2021 COVID-19 VACCINE (2 - season) 2024 02/08/2021 INFLUENZA VACCINE (#1) 2025 0, 06/25/2018, 07/17/2017, Additional history exists Adult Td,Tdap Booster 01/18/2031 01/18/2021 HEPATITIS A VACCINES Aged Out No long er eligible based on patient's age to complete this topic HIB VACCINES Aged Out No longer eligi ble based on patient's age to complete this topic MENINGOCOCCAL VACCINES (ACWY) Aged Out No longer eligible based on patient's age to complete this topic MENINGOCOCCAL VACCINES (B) Aged Out N o longer eligible based on patient's age to complete this topic Medical Devices Not on file Insurance LOLITA PPO CIGNA PPO CIGNA PPO CIGNA PPO CIGNA PPO CIGNA PPO CIGNA PPO CIGNA PPO CIGNA PPO Care Teams Qualitative Field Coordinator Relationship Specialty Start Date End Date Juan Banks MD [address] [place] [address] PCP - General Internal Medicine 06/05/18 Additional Source Comments The information contained in this document represents components of the legal health record. It is not the complete legal health record.[facility]
--- OUTSIDE RECORDS SUMMARY | 2025-06-10 06:20 | XMS_ITS | Encounter Summary ---
Author Organization [facility] Address [address] [place] [address] Care Team Providers Care Talent Coordinator Name Role Phone Juan Banks MD Primary Care Provider [phone] Alexandru Villatoro MD Unavailable [phone] Yara Martinez Unavailable Encounter Details Date Type Department Care Team (Late st Contact Info) Description 01/11/2022 Telephone [facility] [place] [address] [facility] 2nd Floor [address] [place] [id number] Puja Sandoval MA [address] [place] [address] Social History Tobacco Use Types Packs/Day Years [...] Have you recently had an admission to SNF/Rehab/Senior Living? No Have you traveled internationally or domestically in the last month? No documented in this encounter Plan of Treatment Not on file documented as of this encounter Visit Diagnoses Not on filedocumented in this encounter Care Teams Talent Coordinator Relationship Specialty Start Date End Date Juan Banks MD [address] [place] [address] PCP - General Internal Medicine 03/15/19 Alexandru Villatoro MD [address] [place] [address] Surgery, Neurosurgery 04/27/20 Yara Martinez PA [address] [place] [address] Physician Product Demonstrator Pain Medicine 01/11/22 documented as of this encounter
--- OUTSIDE RECORDS SUMMARY | 2025-06-10 06:20 | XMS_ITS | Clinical Summary ---
Author Organization [facility] Address [address] [id number] Care Team Providers Care Shipping Clerk Packing Name Role Phone Juan Banks MD Primary Care Provider [phone] Allergies Active Allergy Reactions Criticality Noted Date [...] 75 06/11/2021 6:48 PM EDT Temperature 35.9 C (96.6 F) 06/11/2021 6:48 PM EDT Respiratory Rate 22 06/11/2021 6:48 PM EDT [...] (1 of 2) 2021 Influenza Vaccine (#1) 2025 Pneumococcal Vaccine Aged Out No long er eligible based on patient's age to complete this topic RSV Ped < 20 months Aged Out No longe r eligible based on patient's age to complete this topic Care Teams Shipping Clerk Packing Relationship Specialty Start Date End Date Juan Banks MD [address] [place] [address] PCP - General Internal Medicine 06/11/21
--- OUTSIDE RECORDS SUMMARY | 2025-06-10 06:20 | XMS_ITS | Encounter Summary ---
Author Organization [facility] Address [address] [place] [address] Care Team Providers Care Materials Planner Name Role Phone Juan Banks MD Primary Care Provider Alexandru Villatoro MD Unavailable [phone] Yara Martinez Unavailable [phone] Encounter Details Date Type Department Care Team (Late st Contact Info) Description 05/02/2022 Scanned Document [facility] Neurosurgery [address] [place] [address] Neurosurgery, Scan Social History Tobacco Use Types [...] on filedocumented in this encounter Care Teams Materials Planner Relationship Specialty Start Date End Date Juan Banks MD [address] [place] [address] PCP - General Internal Medicine 03/15/19 Alexandru Villatoro MD [address] [place] [address] [place] [address] Surgery, Neurosurgery 04/27/20 Yara Martinez PA [address] [place] [address] [address] [place] [address] Physician Cathode Ray Tube Salvage Processor Pain Medicine 01/11/22 documented as of this encounter
--- OUTSIDE RECORDS SUMMARY | 2025-06-10 06:20 | XMS_ITS | Encounter Summary ---
Author Organization [facility] Address [address] [place] [address] Care Team Providers Care Automobile Spring Repairer Name Role Phone Juan Banks MD Primary Care Provider [phone] Alexandru Villatoro MD Unavailable [phone] Yara Martinez Unavailable [phone] Encounter Details Date Type Department Care Team (Late st Contact Info) Description 03/11/2022 Scanned Document [facility] Neurosurgery [place] [address] [facility] [address] [place] [address] Neurosurgery, Scan Social History Tobacco Use Types [...] on filedocumented in this encounter Care Teams Automobile Spring Repairer Relationship Specialty Start Date End Date Juan Banks MD [address] [place] [address] [place] [address] PCP - General Internal Medicine 03/15/19 Alexandru Villatoro MD [address] [place] [address] Surgery, Neurosurgery 04/27/20 Yara Martinez PA [address] [place] [address] Physician Associate Dean Pain Medicine 01/11/22 documented as of this encounter
--- OUTSIDE RECORDS SUMMARY | 2025-06-10 06:20 | XMS_ITS | Encounter Summary ---
Author Organization [facility] Address [address] [place] [address] Care Team Providers Care Ross Carrier Driver Name Role Phone Juan Banks MD Primary Care Provider [phone] Alexandru Villatoro MD Unavailable [phone] Yara Martinez Unavailable Encounter Details Date Type Department Care Team (Late st Contact Info) Description 09/15/2021 Scanned Document [facility] Neurosurgery [place] [address] [facility] [address] [place] [phone] Alexandru Villatoro MD [address] [facility] Abdiel [address] [place] [id number] Social History Tobacco Use Types Packs/Day Years [...] on filedocumented in this encounter Care Teams Ross Carrier Driver Relationship Specialty Start Date End Date Juan Banks MD [address] [facility] [place] [address] PCP - General Internal Medicine 03/15/19 Alexandru Villatoro MD [address] [place] [address] Surgery, Neurosurgery 04/27/20 Yara Martinez PA [address] [place] [phone] Physician Corporate Securities Research Analyst Pain Medicine 01/11/22 documented as of this encounter
== END 2025-06-10 06:17 | disposition home or self-care (01) ==
LOC: CF 06:16
PROVIDERS: Visit Provider Anesthesiology
DX: M53.3 Sacrococcygeal disorders, not elsewhere classified (principal)
CPT/HCPCS: 27096; J2003; J2795; J3301; Q9967

== ENCOUNTER → 2025-06-10 14:56 | Outpatient (AMB) | payer OTHER, SELFPAY ==
[2025-06-10 15:04] VITALS: BP 138/78; PULSE 77; RESP 20; O2SAT 100; BMI 36.6
--- NOTE | 2025-06-10 15:04 | MHC.OFFVIS ---
Vital Signs 06/10/25 15:04 Height 5 ft 6.5 in Weight 230 lb BMI 36.6 BP 138/78 Blood Pressure Location Lt brachial Position Sitting Respiration 20 Pulse 77 Pulse Source Pulse Oximeter Pulse Oximetry (%) 100 Oxygen Delivery Method Room Air Intake Visit Reasons: Bilateral Therapeutic SIJ Injections Heat Engineering Teacher Required: No Allergies gabapentin Allergy (Unknown, Verified 02/06/25 09:26) suicidal thoughts lamotrigine (From Lamictal) Allergy (Unknown, Verified 02/06/25 09:26) Unknown [facility] Medical History Battery end of life of spinal cord stimulator Vitamin D deficiency Vitamin B12 deficiency Rhinitis PTSD (post-traumatic stress disorder) Ocular migraine Moderate somatic symptom disorder Nephrolithiasis Neck pain Knee pain Iron deficiency Hypercholesterolemia History of tobacco use History of colon polyps Hematuria Headache disorder GERD (gastroesophageal reflux disease) Fibromyalgia Depression Chronic mid back pain Chronic lower back pain Carpal tunnel syndrome, bilateral Borderline personality disorder Bipolar disorder Basilar artery migraine Asthma Anxiety Acute gastric ulcer Surgical History Gastric bypass status for obesity S/P insertion of spinal cord stimulator (~2021) H/O gastric bypass (~2000) H/O: hysterectomy (~2015) History of carpal tunnel surgery (~2016) History of section (~1986) History of back surgery (~2014) Social History Alcohol intake: current Alcohol intake frequency: holidays/special occasions only Patient Tobacco Use Status: Former Tobacco user Physical Exam Vital Signs: Last Vital Signs Pulse 77 06/10/25 15:04 Resp 20 06/10/25 15:04 BP 138/78 06/10/25 15:04 Pulse Ox 100 06/10/25 15:04 Oxygen Delivery Method Room Air 06/10/25 15:04 BMI result Body Mass Index 36.6 Assessment & Plan Assessment & Plan (1) Sacroiliac joint pain: Code(s): M53.3 - Sacrococcygeal disorders, not elsewhere classified Category: Medical Plan Bilateral therapeutic sacroiliac joint injection Informed consent was explained thoroughly to the patient.? All questions about benefits and risks for the procedure were answered. Patient came to the operating room and was positioned prone on the operating table with the pillow under the abdomen. The lower back and buttocks of the patient were prepped with ChloraPrep prepped and draped with sterile utility towels.? Sterilely draped C-arm was brought over the operating field and sq picture of patient's pelvis was demonstrated on the screen.? For the right joint tilting C-arm contralateral to the site of the joint the most posterior portion of the joints was superimposed with anterior silhouette of the joint.? Skin was injected in the projection of the joint slightly medial to the location of the joint with 25 gauge 1/2 inch needle using local lidocaine 2% . After that 22 gauge 3 and 1/2 inch needle was driven to the right joint in tunnel vision fashion.? When needle entered the joint capsule injection of the contrast was performed demonstrating intra-articular and minimally periarticular spread of the contrast.? After that 4 cc. of ropivacaine 0.5% mixed with Kenalog 40 mg was injected in the joint. After that procedure was repeated on the left side in mirroring fashion. Same dose of ropivacaine was injected into the joint. Upon completion of the injections the needle was removed and Band-Aid was applied.? Upon completion of the injection patient was taken outside of the operating room to the recovery room where recovered uneventfully. Orders: Orders FL guidance in treatment room Today M53.3 - Sacrococcygeal disorders, not elsewhere classified Coding Level of Care Code Procedure Only Diagnoses Sacroiliac joint pain M53.3
--- OUTSIDE RECORDS SUMMARY | 2025-06-10 15:50 | XMS_ITS | Encounter Summary ---
Author Organization [facility] Address [address] [place] [address] Care Team Providers Care Rv Repair Technician Name Role Phone Juan Banks MD Primary Care Provider [phone] Alexandru Villatoro MD Unavailable [phone] Yara Martinez Unavailable Encounter Details Date Type Department Care Team (Late st Contact Info) Description 09/14/2021 Scanned Document [facility] Neurosurgery [place] [address] [facility] [address] [place] [phone] Alexandru Villatoro MD [address] [facility] [place] [address] [place] [phone] Social History Tobacco Use Types Packs/Day Years [...] on filedocumented in this encounter Care Teams Rv Repair Technician Relationship Specialty Start Date End Date Juan Banks MD [address] [facility] [place] [address] PCP - General Internal Medicine 03/15/19 Alexandru Villatoro MD [address] [place] [address] Surgery, Neurosurgery 04/27/20 Yara Martinez PA [address] [place] [address] [phone] Physician Rn Practitioner Pain Medicine 01/11/22 documented as of this encounter
--- OUTSIDE RECORDS SUMMARY | 2025-06-10 15:50 | XMS_ITS | Encounter Summary ---
Author Organization [facility] Address [address] [place] [address] Care Team Providers Care Advanced Practice Psychiatric Nurse Name Role Phone Juan Banks MD Primary Care Provider [phone] Alexandru Villatoro MD Unavailable [phone] Yara Martinez Unavailable [phone] Encounter Details Date Type Department Care Team (Late st Contact Info) Description 03/11/2022 Scanned Document [facility] Neurosurgery [place] [address] [facility] [address] [place] [address] Neurosurgery, Scan Social History Tobacco Use Types [...] on filedocumented in this encounter Care Teams Advanced Practice Psychiatric Nurse Relationship Specialty Start Date End Date Juan Banks MD [address] [place] [address] [place] [address] PCP - General Internal Medicine 03/15/19 Alexandru Villatoro MD [address] [place] [address] Surgery, Neurosurgery 04/27/20 Yara Martinez PA [address] [place] [address] Physician Waste Collector Pain Medicine 01/11/22 documented as of this encounter
--- OUTSIDE RECORDS SUMMARY | 2025-06-10 15:50 | XMS_ITS | Clinical Summary ---
Author Organization [facility] Address [address] [place] [address] Care Team Providers Care Kiln Mechanic Name Role Phone Juan Banks MD Primary Care Provider Alexandru Villatoro MD Unavailable [phone] Yara Martinez Unavailable [phone] Allergies Active Allergy Reactions Criticality Noted [...] 03/10/2023, 05/31/2019 Medical Devices Implanted Type Area Program Manufacturing Leader Device Identifier Shelf Expiration Date Model / Serial / Lot Nail/Sachin Nail/Sachin Back Description:4 rods implanted Spinal Cord Stimulator Stimulator [id number] Lead Neurostimulator 60cm 5mm Vectris 1x8 Electrode Trl - [id number] Implanted:Qty: 1 on 12/26/2019 by Mohan Richard MD at [facility] Stimulator N/A: Back [employer] MINIMALLY INVASIVE T 10/28/2023 [id number] / / [id number] Lead Neurostimulator 60cm 5mm Vectris 1x8 Electrode Trl - [id number] Implanted:Qty: 1 on 12/26/2019 by Mohan Richard MD at [facility] Stimulator N/A: Back [employer] MINIMALLY INVASIVE T 10/29/2023 [id number] / / [id number] Neurostimulator Implantable Chrnc Pain Rs2 - [id number] Implanted:Qty: 1 on 05/06/2020 by Alexandru Villatoro MD at [facility] Stimulator Left: Buttocks [employer] MINIMALLY INVASIVE T 02/10/2021 [id number] / [id number] / [id number] Neurostimulator Implant Primeadvanced Surescan Mri - [id number] Implanted:Qty: 1 on 09/15/2021 by Alexandru Villatoro MD at [facility] Stimulator Left: Buttocks [employer] MINIMALLY INVASIVE T 11/12/2021 [id number] / [id number] / [id number] 3Rd Pressman Neurostimulator Mystim Mri Tc Extension - [id number] Implanted:Qty: 1 on 09/15/2021 by Alexandru Villatoro MD at [facility] Stimulator [employer] MINIMALLY INVASIVE T [id number] / [id number] / [id number] Envelope Absorbable Lg 3.35x3in Polyarylate Minocycline - [id number] Implanted:Qty: 1 on 09/15/2021 by Alexandru Villatoro MD at [facility] Tissue Left: Buttocks [employer] MINIMALLY INVASIVE T 04/24/2022 [id number] / / [id number] Vectris Tm Surescan Mri Lead Kit For Spinal Cord Stimulation Implanted:Qty: 1 on 05/06/2020 by Alexandru Villatoro MD at [facility] Spine Thoracic [employer] MINIMALLY INVASIVE T 07/23/2023 [id number] / / [id number] Vectris Tm Surescan Mri Lead Kit For Spinal Cord Stimulation Implanted:Qty: 1 on 05/06/2020 by Alexandru Villatoro MD at [facility] Spine Thoracic [employer] MINIMALLY INVASIVE T 11/07/2023 [id number] / / [id number] Extension Lead 40cm Implanted:Qty: 1 on 07/15/2021 by Alexandru Villatoro MD at [facility] [employer] MINIMALLY INVASIVE T [id number] / [id number] / Extension Kit 40cm Implanted:Qty: 1 on 07/15/2021 by Alexandru Villatoro MD at [facility] [employer] MINIMALLY INVASIVE T [id number] / [id number] / Specify Surescan Mri 2x8 Implanted:Qty: 1 on 2022 by Alexandru Villatoro MD at [facility] [employer] MINIMALLY INVASIVE T 01/19/2025 [id number] / / [id number] Vanta Adaptivestim Implanted:Qty: 1 on 07/19/2024 by Alexandru Villatoro MD at [facility] N/A: Back Explanted Type Area Program Manufacturing Leader Device Identifier Shelf Expiration Date Model / Serial / Lot [id number] Kit Accessory .133in Injex Brianna Baso4 Biwing Flexible Removal - [id number] Explanted:Qty: 1 on 12/26/2019 at [facility] Stimulator [employer] MINIMALLY INVASIVE T [id number] / / [id number] C-Armor Explanted:Qty: 1 on 12/26/2019 at [facility] Other [id number] / / Description:Del bangura, n ot an implant (not implanted or explanted) only way to charge for it in [facility] C-Arm Drape Explanted:Qty: 2 on 12/26/2019 at [facility] [employer] CYNTHIA [id number] / / Description:not an implant, c-arm drape, only way of charging in [facility] Wireless Externa Neurostimulator Explanted:Qty: 1 on 12/26/2019 by Mohan Richard MD at [facility] N/A: Back [employer] MINIMALLY INVASIVE T 01873 / / [id number] Description:not an implant, only way to charge in [facility] External Neurostimulator Boot Explanted:Qty: 1 on 12/26/2019 by Mohan Richard MD at [facility] N/A: Back [employer] MINIMALLY INVASIVE T [id number] / / [id number] Description:Not an implant, only way to charge for in [facility] Procedures Procedure Name Priority Date/Time Associated Diagnosis [...] analytical performance characteristics have been determined by [email or web address]. It has not been cleared or approved [...] or to monitor progress of medical conditions. [employer] comments are: - present when drug test results may be the result of metabolism of one or more drugs or when results are inconsistent with prescribed medication(s) listed. - may be blank when drug results are consistent with prescribed medication(s) listed. For assistance with interpreting these drug results, please contact a [email or web address] Toxicology Specialist: [phone] ( ), M-F, 8am-6pm EST. Specimen from unspecified body site / Unknown 06/05/2019 4:18 PM EDT 06/07/2019 2:58 AM EDT Narrative Resulting Agency Comment Performing Organization Information: Site ID: [id number] Name: [facility] Address: [address] [place] [address], [facility] [place] [address] Director: Ashley Kelly MD Yara Ocampo APRN URINE ORDERABLES Final Result [facility] [address] [place] [address], [facility] [place] [address] from Last 3 Months or Most Recently [...] 10:09 AM 09/15/2021 10:13 AM Care Teams Kiln Mechanic Relationship Specialty Start Date End Date Juan Banks MD [address] [place] [address] PCP - General Internal Medicine 03/15/19 Alexandru Villatoro MD [address] [place] [address] Surgery, Neurosurgery 04/27/20 Yara Martinez PA [address] [place] [address] Physician Kennel Manager Dog Track Pain Medicine 01/11/22
--- OUTSIDE RECORDS SUMMARY | 2025-06-10 15:50 | XMS_ITS | Encounter Summary ---
Author Organization [facility] Address [address] [place] [address] Care Team Providers Care Learning And Development Manager Name Role Phone Juan Banks MD Primary Care Provider Alexandru Villatoro MD Unavailable [phone] Yara Martinez Unavailable Encounter Details Date Type Department Care Team (Late st Contact Info) Description 06/16/2021 Scanned Document [facility] Neurosurgery [place] [address] [facility] [place] [address] [place] [phone] Alexandru Villatoro MD [address] [facility] [place] Abdiel [address] [place] [address] [phone] Social History Tobacco Use Types Packs/Day Years [...] on filedocumented in this encounter Care Teams Learning And Development Manager Relationship Specialty Start Date End Date Juan Banks MD [address] [place] [address] PCP - General Internal Medicine 03/15/19 Alexandru Villatoro MD [address] [place] [address] Surgery, Neurosurgery 04/27/20 Yara Martinez PA [address] [place] [address] [phone] Physician Garden Tractor Mechanic Pain Medicine 01/11/22 documented as of this encounter
--- OUTSIDE RECORDS SUMMARY | 2025-06-10 15:50 | XMS_ITS | Encounter Summary ---
Author Organization [facility] Address [address] [place] [address] Care Team Providers Care Medical Records Custodian Name Role Phone Juan Banks MD Primary Care Provider Alexandru Villatoro MD Unavailable [phone] Yara Martinez Unavailable Encounter Details Date Type Department Care Team (Late st Contact Info) Description 11/26/2021 Scanned Document [facility] Neurosurgery [place] 85 [facility] [address] [place] [phone] Alexandru Villatoro MD 85 [facility] Abdiel [address] [place] [address] [phone] Social History Tobacco Use Types Packs/Day Years [...] on filedocumented in this encounter Care Teams Medical Records Custodian Relationship Specialty Start Date End Date Juan Banks MD 470 [facility] [place] [address] PCP - General Internal Medicine 03/15/19 Alexandru Villatoro MD [address] [place] [address] Surgery, Neurosurgery 04/27/20 Yara Martinez PA [address] [place] [address] [phone] Physician Blaster Helper Pain Medicine 01/11/22 documented as of this encounter
--- OUTSIDE RECORDS SUMMARY | 2025-06-10 15:50 | XMS_ITS | Encounter Summary ---
Author Organization [facility] Address [address] [place] [address] Care Team Providers Care Cable Installer Repairer Helper Name Role Phone Juan Banks MD Primary Care Provider Alexandru Villatoro MD Unavailable [phone] Yara Martinez Unavailable Encounter Details Date Type Department Care Team (Late st Contact Info) Description 09/14/2021 Prep for Surgery [facility] Pre-Admission Testing [facility] 85 [facility] [address] [place] [phone] Maria G Hyatt APRN 85 [facility] Abdiel [address] [place] [address] [phone] Pre-op examination (Primary Dx) Social History Tobacco [...] Primary documented in this encounter Care Teams Cable Installer Repairer Helper Relationship Specialty Start Date End Date Juan Banks MD [address] [place] [address] PCP - General Internal Medicine 03/15/19 Alexandru Villatoro MD [address] [place] [address] Surgery, Neurosurgery 04/27/20 Yara Martinez PA [address] [place] [address] Physician Abnormal Psychology Teacher Pain Medicine 01/11/22 documented as of this encounter
--- OUTSIDE RECORDS SUMMARY | 2025-06-10 15:50 | XMS_ITS | Encounter Summary ---
Author Organization [facility] Address [address] [place] [address] Care Team Providers Care Avionics System Engineer Name Role Phone Juan Banks MD Primary Care Provider [phone] Alexandru Villatoro MD Unavailable [phone] Yara Martinez Unavailable [phone] Encounter Details Date Type Department Care Team (Late st Contact Info) Description 05/01/2020 Prep for Surgery [facility] [place] [address] [place] [address] 2nd [address] [place] [phone] Cici Montano APRN [address] [place] [address] [place], [place] [phone] Preop testing (Primary Dx) Social History Tobacco [...] EDT 05/02/2020 4:35 PM EDT Cici Montano MICROPALEONTOLOGIST MICROBIOLOGY - GENERAL ORDER MIKE Final Result [facility] documented in this encounter Visit Diagnoses Diagnosis Preop testing- Primary Unspecified pre-operative examination documented in this encounter Care Teams Avionics System Engineer Relationship Specialty Start Date End Date Juan Banks MD [address] [place] [address] PCP - General Internal Medicine 03/15/19 Alexandru Villatoro MD [address] [place] [address] Surgery, Neurosurgery 04/27/20 Yara Martinez PA [address] [place] [address] Physician Presales Senior Specialist Pain Medicine 01/11/22 documented as of this encounter
--- OUTSIDE RECORDS SUMMARY | 2025-06-10 15:50 | XMS_ITS | Encounter Summary ---
Author Organization [facility] Address [address] [place] [address] Care Team Providers Care Subassembly Supervisor Name Role Phone Juan Banks MD Primary Care Provider [phone] Alexandru Villatoro MD Unavailable [phone] Yara Martinez Unavailable [phone] Encounter Details Date Type Department Care Team (Late st Contact Info) Description 01/11/2022 Telephone [facility] [place] [address] [facility] 2nd Floor [address] [place] [phone] Puja Sandoval MA [address] [place] [address] Social History Tobacco Use Types Packs/Day Years [...] Have you recently had an admission to SNF/Rehab/Fci? No Have you traveled internationally or domestically in the last month? No documented in this encounter Plan of Treatment Not on file documented as of this encounter Visit Diagnoses Not on filedocumented in this encounter Care Teams Subassembly Supervisor Relationship Specialty Start Date End Date Juan Banks MD [address] [place] [address] PCP - General Internal Medicine 03/15/19 Alexandru Villatoro MD [address] [place] [address] 9[address] Surgery, Neurosurgery 04/27/20 Yara Martinez PA [address] [place] [address] Physician Record Keeper Pain Medicine 01/11/22 documented as of this encounter
--- OUTSIDE RECORDS SUMMARY | 2025-06-10 15:50 | XMS_ITS | Encounter Summary ---
Author Organization [facility] Address [address] [place] [address] Care Team Providers Care Physician Coding Specialist Name Role Phone Juan Banks MD Primary Care Provider [phone] Alexandru Villatoro MD Unavailable [phone] Yara Martinez Unavailable [phone] Encounter Details Date Type Department Care Team (Late st Contact Info) Description 03/09/2022 Scanned Document [facility] Neurosurgery [place] 85 [facility] [address] [place] [address] Marilou Suh PA Valid Address Needed Social [...] on filedocumented in this encounter Care Teams Physician Coding Specialist Relationship Specialty Start Date End Date Juan Banks MD 470 [place] [address] PCP - General Internal Medicine 03/15/19 Alexandru Villatoro MD [address] [place] [address] Surgery, Neurosurgery 04/27/20 Yara Martinez PA [address] [place] [address] Physician Salvage Worker Pain Medicine 01/11/22 documented as of this encounter
--- OUTSIDE RECORDS SUMMARY | 2025-06-10 15:50 | XMS_ITS | Clinical Summary ---
Author Organization [facility] Address [address] [place] [address] Phone Care Team Providers Care Paper Machine Operator Name Role Phone Juan Banks MD Primary Care Provider [phone] Allergies Active Allergy Reactions Criticality Noted Date [...] OBESIT CARPAL TUNNEL RELEASE 09/2014 Bilateral PROCEDURE: CT NEUROPLASTY &/TRANSPOS MEDIAN NRV CARPAL TUNNE ANKLE SURGERY 2004 Right PROCEDURE: HISTORICAL ANKLE SURGERY OTHER SURGICAL HISTORY 2011 PROCEDURE: CT HYSTEROSCOPY ENDOMETRIAL ABLATION SECTION 1986 PROCEDURE: HISTORICAL [...] this topic Medical Devices Implanted Type Area Receiving Supervisor Device Identifier Shelf Expiration Date Model / Serial / Lot Stent Uret [id number] Stretch W/O Gw - Sn/A - [id number] Implanted:Qty: 1 on 10/10/2024 by Yogi Kidd MD at [facility] Stents Left: Ureter [employer] [facility]GYNECOLG Y 04/24/2027 [id number] / N/A / [id number] Insurance MEDICARE [facility] Advance Directives * Full Code - Confirmed [...] currently active code status orders. Care Teams Paper Machine Operator Relationship Specialty Start Date End Date Juan Banks MD [address] [place] [address] PCP - General Internal Medicine 07/31/13
--- OUTSIDE RECORDS SUMMARY | 2025-06-10 15:50 | XMS_ITS | Encounter Summary ---
Author Organization [facility] Address [address] [place] [address] Care Team Providers Care Senior Nuclear Medicine Technologist Name Role Phone Juan Banks MD Primary Care Provider Alexandru Villatoro MD Unavailable [phone] Yara Martinez Unavailable [phone] Encounter Details Date Type Department Care Team (Late st Contact Info) Description 03/11/2022 [facility] Medical [facility] Neurosurgery [place] 85 [facility] [address] [place] [phone] Myla Appiah, PA-C [address] [place] [address] Social History Tobacco Use Types [...] on filedocumented in this encounter Care Teams Senior Nuclear Medicine Technologist Relationship Specialty Start Date End Date Juan Banks MD 470 [facility] [place] [address] PCP - General Internal Medicine 03/15/19 Alexandru Villatoro MD [address] [place] [address]27 Surgery, Neurosurgery 04/27/20 Yara Martinez PA [address] [place] [address] [phone] Physician Wash Tub Machine Operator Pain Medicine 01/11/22 documented as of this encounter
--- OUTSIDE RECORDS SUMMARY | 2025-06-10 15:50 | XMS_ITS | Encounter Summary ---
Author Organization [facility] Address [address] [place] [address] Care Team Providers Care Collar Stay Fuser Tender Name Role Phone Juan Banks MD Primary Care Provider Alexandru Villatoro MD Unavailable [phone] Yara Martinez Unavailable [phone] Reason for Visit * Reason Comments Medication Refill Encounter Details Date Type Department Care Team (Late st Contact Info) Description 01/07/2022 Refill [facility] Neurosurgery [place] 85 [facility] [address] [place] [phone] aMrilou Suh PA Valid Address Needed Postlaminectomy syndrome [...] region documented in this encounter Care Teams Collar Stay Fuser Tender Relationship Specialty Start Date End Date Juan Banks MD [facility] [place] [address] PCP - General Internal Medicine 03/15/19 Alexandru Villatoro MD [address] [place] [address] Surgery, Neurosurgery 04/27/20 Yara Martinez PA [address] [place] [address] Physician Applications Specialist Pain Medicine 01/11/22 documented as of this encounter
--- OUTSIDE RECORDS SUMMARY | 2025-06-10 15:50 | XMS_ITS | Encounter Summary ---
Author Organization [facility] Address [address] [place] [address] Care Team Providers Care Shipping Lead Person Name Role Phone Juan Banks MD Primary Care Provider Alexandru Villatoro MD Unavailable [phone] Yara Martinez Unavailable Encounter Details Date Type Department Care Team (Late st Contact Info) Description 09/15/2021 Scanned Document [facility] Neurosurgery [place] 85 [facility] [address] [place] [phone] Alexandru Villatoro MD 85 [facility] Abdiel [address] [place] [address] [phone] Social History Tobacco Use Types Packs/Day Years [...] on filedocumented in this encounter Care Teams Shipping Lead Person Relationship Specialty Start Date End Date Juan Banks MD 470 [facility] [place] [address] PCP - General Internal Medicine 03/15/19 Alexandru Villatoro MD [address] [place] [address] Surgery, Neurosurgery 04/27/20 Yara Martinez PA [address] [place] [address] [phone] Physician Fast Food Sales Assistant Pain Medicine 01/11/22 documented as of this encounter
--- OUTSIDE RECORDS SUMMARY | 2025-06-10 15:50 | XMS_ITS | Encounter Summary ---
Author Organization [facility] Address [address] [place] [address] Care Team Providers Care Instructional Technology Teacher Name Role Phone Juan Banks MD Primary Care Provider [phone] Edmar Vallecillo PhD Unavailable [phone] Alexandru Villatoro MD Unavailable [phone] Yara Martinez Unavailable Encounter Details Date Type Department Care Team (Late st Contact Info) Description 05/07/2019 Scanned Document [facility] Neurosurgery [place] 85 [facility] [address] [place] [phone] Alexandru Villatoro MD 85 [facility] Abdiel [address] [place] [address] [phone] Social History Tobacco Use Types Packs/Day Years [...] on filedocumented in this encounter Care Teams Instructional Technology Teacher Relationship Specialty Start Date End Date Juan Banks MD [address] [place] [address] PCP - General Internal Medicine 03/15/19 Edmar Vallecillo, PhD Needs valid address Clinical Psychologist Psychology 07/16/19 04/26/20 Alexandru Villatoro MD [address] [place] [address] Surgery, Neurosurgery 04/27/20 Yara Martinez PA [address] [place] [address] Physician Bar Welder Pain Medicine 01/11/22 documented as of this encounter
--- OUTSIDE RECORDS SUMMARY | 2025-06-10 15:50 | XMS_ITS | Clinical Summary ---
Author Organization [facility] Address [address] [phone] Care Team Providers Care Senior Mobile Web Developer Name Role Phone Juan Banks MD Primary Care Provider [phone] Allergies Active Allergy Reactions Criticality Noted Date [...] age to complete this topic Care Teams Senior Mobile Web Developer Relationship Specialty Start Date End Date Juan Banks MD [address] [place] [address] PCP - General Internal Medicine 06/11/21
--- OUTSIDE RECORDS SUMMARY | 2025-06-10 15:50 | XMS_ITS | Clinical Summary ---
Author Organization [facility] Address [address] [facility] [address] [place] [address] Phone Care Team Providers Care Universal Grinder Set Up Operator Name Role Phone Juan Banks MD Primary Care Provider [phone] Allergies Active Allergy Reactions Criticality Noted Date [...] PPO CIGNA PPO CIGNA PPO Care Teams Universal Grinder Set Up Operator Relationship Specialty Start Date End Date Juan Banks MD [address] [place] [address] PCP - General Internal Medicine 06/05/18 Additional Source Comments The information contained in this document represents components of the legal health record. It is not the complete legal health record.[facility]
--- OUTSIDE RECORDS SUMMARY | 2025-06-10 15:50 | XMS_ITS | Encounter Summary ---
Author Organization [facility] Address [address] [place] [address] Care Team Providers Care Director Of Acquisitions Name Role Phone Juan Banks MD Primary Care Provider [phone] Alexandru Villatoro MD Unavailable [phone] Yara Martinez Unavailable [phone] Encounter Details Date Type Department Care Team (Late st Contact Info) Description 05/29/2024 Scanned Document [facility] Neurosurgery [place] 85 [facility] [address] [place] [phone] Marilou Suh PA Valid Address Needed Social [...] on filedocumented in this encounter Care Teams Director Of Acquisitions Relationship Specialty Start Date End Date Juan Banks MD [address] [place] [address] PCP - General Internal Medicine 03/15/19 Alexandru Villatoro MD [address] [place] [address] [place] [address]43 Surgery, Neurosurgery 04/27/20 Yara Martinez PA [address] [place] [address] [address] [place], [place] [phone] Physician Explosives Worker Pain Medicine 01/11/22 documented as of this encounter
--- OUTSIDE RECORDS SUMMARY | 2025-06-10 15:50 | XMS_ITS | Encounter Summary ---
Author Organization [facility] Address [address] [place] [address] Care Team Providers Care Electrical Systems Engineer Name Role Phone Juan Banks MD Primary Care Provider Alexandru Villatoro MD Unavailable [phone] Yara Martinez Unavailable [phone] Encounter Details Date Type Department Care Team (Late st Contact Info) Description 05/02/2022 Scanned Document [facility] Neurosurgery [address] [place] [address] Neurosurgery, Scan Social History Tobacco Use Types [...] on filedocumented in this encounter Care Teams Electrical Systems Engineer Relationship Specialty Start Date End Date Juan Banks MD [address] [place] [address] PCP - General Internal Medicine 03/15/19 Alexandru Villatoro MD [address] [place] [address] [place] [address] Surgery, Neurosurgery 04/27/20 Yara Martinez PA [address] [place] [address] [address] [place] [address] Physician Sample Cutter Pain Medicine 01/11/22 documented as of this encounter
== END ==
LOC: HO.PMCPRC 14:56
PROVIDERS: PCP Internal Medicine; Visit Provider Anesthesiology
DX: M53.3 Sacrococcygeal disorders, not elsewhere classified (principal)
CPT/HCPCS: 27096

== ENCOUNTER 2025-07-21 10:07 | Outpatient (AMB) | payer OTHER, SELFPAY ==
--- NOTE | 2025-07-21 10:10 | A.OFFVIS_ITS ---
Vital Signs 3 07/21/25 10:14 Height 5 ft 6 in Weight 239 lb BMI 38.6 BP 143/63 H Blood Pressure Location Lt brachial Position Sitting Pulse 77 Pulse Source Pulse Oximeter Pulse Oximetry (%) 98 Oxygen Delivery Method Room Air Intake Visit Reasons: S/P Bilateral Therapeutic SIJ Injections 06/10/25 Intake Note: Pain today 5/10 Instructional Facilitator Required: No Accompanied by: Self / Same As Patient Allergies gabapentin Allergy (Unknown, Verified 07/21/25 10:15) suicidal thoughts lamotrigine (From Lamictal) Allergy (Unknown, Verified 07/21/25 10:15) Unknown HPI Comments Details: The patient is a 55-year-old female presenting with chronic lower back pain and sacroiliac joint dysfunction. The patient underwent a therapeutic sacroiliac joint injection on June 09, which had reduced her pain by approximately 90%. Currently, her pain level is 5 out of 10, primarily located in the lower back, with occasional involvement of the buttocks and hips. The patient has a history of lumbar spondylosis, as indicated by a back x-ray from 2018, and lumbar disc herniation, with MRI findings from 2014 showing bulging discs and a grade one slippage at L3-L4. She underwent posterior lumbar fusion at L4-L5 in 2014 and had a Medtronic spinal cord stimulator implanted in 2021. Despite these interventions, she reports her back occasionally giving out and experiencing jolting sensations, although there is no significant radiation to the legs. The patient also reports greater trochanteric bursitis, with pain in the hips, particularly when lying on her sides, which has not been addressed recently. She has not had any recent imaging for this condition, and previous hip x-rays did not show significant arthritic changes. - Onset: Chronic, with recent exacerbation post-SI joint injection - Quality: Aching, numbness, tingling and jolting sensations in the lower back - Location: Primarily lower back, occasional buttocks and hips - Radiation: No radiation to the legs - Exacerbating factors: Bending down, certain movements - Relieving factors: Previous SI joint injections provided good relief - Interference: Pain affects ability to perform certain movements and sleep comfortably on sides - Affect: Pain impacts daily activities and causes discomfort during movement - Analgesia: Current pain level is 5/10, with previous SI joint injections providing good relief - Adverse Effects: No adverse effects from current pain management reported - Activities of Daily Living: Pain affects ability to bend and sleep comfortably - Aberrant Drug Related Behaviors: No aberrant behaviors reported Past Procedures: 06/10/25: Bilateral Therapeutic SIJ injections-90% ongoing pain relief 08/27/24: Bilateral Therapeutic SIJ injections-70% ongoing pain relief PRIOR: Patient is a pleasant 54 years old female under history of chronic mid and low back pain, history of L4-L5 lumbar fusion, fibromyalgia, chronic greater trochanteric bursitis, sacroiliac joint pain, anxiety and depression, PTSD, gastric bypass and morbid obesity presents today for initial evaluation of chronic low back pain. Patient is followed by neurosurgeon Dr. [place]ator[place] and has been also followed by pain management in [place] for injection therapy. She reports her pain specialist provider has left the practice. Patient reports small arachnoid cyst in T5-T6 on the right and has discussion surgical removal with Dr. Villatoro. Patient does have a Medtronic spinal cord stimulator with non rechargeable battery with paddles which is due for replacement. rep Valdo from [employer] is present today and has interrogated spinal cord stimulator device today and reports device is due for battery replacement otherwise no program adjustment is needed. Patient is also taking tramadol and baclofen, prescribed by PCP. Patient reports chronic low back pain and postlaminectomy syndrome has been well managed with spinal cord stimulator in place and she is looking for battery replacement. She reports significant localized tenderness in the projection of bilateral sacroiliac joint areas in greater trochanteric bursae. Patient interested to undergo therapeutic injections for SI joint pain. She has been getting therapeutic GTB injections every 3-4 months, with last injections one month ago. 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 Pain affects her daily activities and functioning, mobility, sleep, mood, and social interactions. Denies any fever or chills, abdominal or groin pain, weakness, foot drop, bladder or bowel dysfunction or saddle anesthesia. Location: Lower back with radiation into buttocks and lateral hips Duration: Chronic pain for many years Characteristics of symptom or complaint: Aching, throbbing, sharp, tightness, stabbing, crushing, tugging, tiring Aggravating or associated factors: Prolonged sitting or standing, walking, movements Relieving factors: Sitting, tramadol, baclofen, heat therapy Treatment: Injections for back/hips, TENS unit, Oska pulse pain relief, Medtronic SCS [facility] Medical History Battery end of life of spinal cord stimulator Vitamin D deficiency Vitamin B12 deficiency Rhinitis PTSD (post-traumatic stress disorder) Ocular migraine Moderate somatic symptom disorder Nephrolithiasis Neck pain Knee pain Iron deficiency Hypercholesterolemia History of tobacco use History of colon polyps Hematuria Headache disorder GERD (gastroesophageal reflux disease) Fibromyalgia Depression Chronic mid back pain Chronic lower back pain Carpal tunnel syndrome, bilateral Borderline personality disorder Bipolar disorder Basilar artery migraine Asthma Anxiety Acute gastric ulcer Surgical History Gastric bypass status for obesity S/P insertion of spinal cord stimulator (~2021) H/O gastric bypass (~2000) H/O: hysterectomy (~2015) History of carpal tunnel surgery (~2016) History of section (~1986) History of back surgery (~2014) Social History Alcohol intake: current Alcohol intake frequency: holidays/special occasions only Patient Tobacco Use Status: Former Tobacco user Review of Systems Const Details: - Musculoskeletal: Reports chronic lower back pain, denies radiation to legs - Neurological: Denies bladder or bowel dysfunction or saddle anesthesia. All systems reviewed & are unremarkable except as noted in HPI and below Physical Exam Vital Signs: Last Vital Signs Pulse 77 07/21/25 10:14 BP 143/63 H 07/21/25 10:14 Pulse Ox 98 07/21/25 10:14 Oxygen Delivery Method Room Air 07/21/25 10:14 BMI result Body Mass Index 38.6 General: Appears afebrile. Alert and oriented. Mood and affect appropriate. Follows and participates in conversation appropriately. Respiratory effort is unlabored. No cough. Able to transition from sit to stand unassisted. Ambulates with bilaterally normal heel strike and toe off. General: Yes no CVA tenderness Back/Spine/Pelvis Other: Limited lumbar ROM due to pain. Lumbar flexion and extension reproduces mild symptoms. Demonstrates 5/5 strength of quadriceps bilaterally as well as flexion/dorsiflexion of bilateral feet against resistance. 2+ pedal pulses bilaterally. Seated straight leg rise with dorsiflexion negative bilaterally. Diminished patellar and achilles reflexes bilaterally. Facet loading test positive bilaterally. Dave sign, Amrit?s, Gaenslen, Pelvic compression and Stinchfield tests are positive bilaterally. No groin pain with I/E hip rotations. Moderate TTP bilateral GTB. Valsalva maneuver negative. Back: no CVA tenderness Cervical Spine: cervical ROM normal, cervical muscular tenderness and No Cervical spine tenderness Thoracic/Lumbar Spine: thoracic and lumbar spine normal to inspection, Thoracic/lumbar spine scar(s), Lasegue's sign negative, straight leg raise negative bilaterally, pain with thoraco-lumbar ROM, paraspinal muscle tenderness, thoraco-lumbar ROM limited, No thoracic spinal tenderness and lumbar spinal tenderness (L4-S1) Pelvis: buttock tenderness bilaterally Sacroiliac joints: bilaterally tender to palpation Extrem General: Yes capillary refill normal, Yes no clubbing, cyanosis or edema and Yes no calf tenderness Results Reviewed Results Reviewed: 11/25/2018 11/25/2018 MRI Thoracic spine w/o contrast 05/24/24 XR hip BI w PEL1V 01/24/25 CLINICAL HISTORY: M70.61 - Trochanteric bursitis, right hip 5 view, pelvis and right hip Comparison: None Findings: No acute fracture or dislocation. No significant arthritic change. Battery pack in the left lower quadrant. Posterior fusion at L4-L5. IMPRESSION: No acute findings. Assessment & Plan Assessment & Plan (1) Lumbar post-laminectomy syndrome: Code(s): M96.1 - Postlaminectomy syndrome, not elsewhere classified Category: Medical (2) Lumbar degenerative disc disease: Code(s): M51.36 - Other intervertebral disc degeneration, lumbar region Category: Medical (3) Lumbar radiculopathy: Code(s): M54.16 - Radiculopathy, lumbar region Category: Medical (4) Sacroiliac joint pain: Code(s): M53.3 - Sacrococcygeal disorders, not elsewhere classified Category: Medical (5) Greater trochanteric bursitis of both hips: Code(s): M70.61 - Trochanteric bursitis, right hip; M70.62 - Trochanteric bursitis, left hip Category: Medical (6) Chronic lower back pain: Code(s): M54.50 - Low back pain, unspecified; G89.29 - Other chronic pain Category: Medical Plan The plan includes adjusting the Medtronic spinal cord stimulator to target the L3-L4 level, where there is mild slippage and foraminal narrowing, to see if this provides additional relief. Additionally, we discussed TFESI and bilateral greater trochanteric bursa injections to address lower back and bilateral hip pain. The patient is advised to follow up with her Neurosurgeon in August, bringing the MRI disc and report for further evaluation. Patient underwent Medtronic SCS battery replacement by Neurosurgeon Dr. Villatoro in July 2024 and reports her mid back pain has been under good control. She reported good pain relief with previous bilateral therapeutic sacroiliac joint injections. Previously reviewed SI joint stabilization with Painteq fusion device. Schedule Bilateral L3-L4 TFESI with local and fluoroscopy. Expectations, risks and benefits were reviewed. Patient is aware she will be contacted to schedule this procedure. All questions were answered and the patient is in agreement of plan. Follow-up after injections and sooner as needed. Patient was informed and verbally consented to the use of an ambient scribe for clinic note documentation during this visit. Coding Level of Care Code Est Pt Level 4 (56839) Complex EM visit Add On G2211 Diagnoses Lumbar post-laminectomy syndrome M96.1 Lumbar degenerative disc disease M51.36 Lumbar radiculopathy M54.16 Sacroiliac joint pain M53.3 Greater trochanteric bursitis of both hips M70.61; M70.62 Chronic lower back pain M54.50; G89.29
[2025-07-21 10:14] VITALS: BP 143/63; PULSE 77; O2SAT 98; BMI 38.6
--- OUTSIDE RECORDS SUMMARY | 2025-07-21 11:46 | XMS_ITS | Patient Health Record ---
Author Organization [facility] Address [address] [facility] [address] [place] [address] Care Team Providers Care Amusement Ride Operator Name Role Phone Juan Banks Primary Care [...] day Active Ciclopirox 8 % 1 application Supervisor Scrap Preparation ally to toenail Once a day; Duration: [...] Start Date Coverage End Date [address] [place] [phone] [id number] Carito Lam Self - patient is the [...] vitamin D deficiency COVID vaccinated X 2 ([email or web address]) and [address] ([email or web address]) Surgical History Surgery Date(Month/Year) hysterectomy 02/04/2015 bilateral carpal tunnel release gastric bypass operation spinal stimulator X 2 right achilles tendon repair back surgery 1999 1986 Hospitalization History Reason Date(Month/Year) (girl) 1990 (boy) 1986 gastric bypass hysterectomy 02/04/2015 back surgery
--- OUTSIDE RECORDS SUMMARY | 2025-07-21 11:46 | XMS_ITS | Encounter Summary ---
Author Organization [facility] Address [address] [place] [address] Care Team Providers Care Regional Environmental Manager Name Role Phone Juan Banks MD Primary Care Provider [phone] Alexandru Villatoro MD Unavailable [phone] Yara Martinez Unavailable Encounter Details Date Type Department Care Team (Late st Contact Info) Description 11/26/2021 Scanned Document [facility] Neurosurgery [place] [address] [facility] [address] [place] [phone] Alexandru Villatoro MD 85 [facility] Abdiel [address] [place] [address] [phone] Social History Tobacco Use Types Packs/Day Years [...] as of this encounter Plan of Treatment Upcoming Encounters Date Type Department Care Team (Late st Contact Info) Description 09/12/2025 10:40 AM EST Office Visit [facility] Neurosurgery [address] [phone] Ana Lilia Green PA-C [address] [place] [address] documented as of this encounter Visit Diagnoses Not on filedocumented in this encounter Care Teams Regional Environmental Manager Relationship Specialty Start Date End Date Juan Banks MD [address] [place] [address] [place] [address] PCP - General Internal Medicine 03/15/19 Alexandru Villatoro MD [address] [place] [address] [phone] Surgery, Neurosurgery 04/27/20 Yara Martinez PA [address] [place] [address] Physician Behavioral Health Therapist Pain Medicine 01/11/22 documented as of this encounter
--- OUTSIDE RECORDS SUMMARY | 2025-07-21 11:46 | XMS_ITS | Encounter Summary ---
Author Organization [facility] Address [address] [place] [address] Care Team Providers Care Instructor Kindergarten Name Role Phone Juan Banks MD Primary Care Provider [phone] Alexandru Villatoro MD Unavailable [phone] Yara Martinez Unavailable Encounter Details Date Type Department Care Team (Late st Contact Info) Description 05/29/2024 Scanned Document [facility] Neurosurgery [place] [address] [phone] Marilou Suh PA Valid Address Needed Social [...] Description 09/12/2025 10:40 AM EST Office Visit [facility] Neurosurgery [address] [phone] Ana Lilia Green, PA-C [address] [phone] documented as of this encounter Visit Diagnoses Not on filedocumented in this encounter Care Teams Instructor Kindergarten Relationship Specialty Start Date End Date Juan Banks MD [address] [place] [address] PCP - General Internal Medicine 03/15/19 Alexandru Villatoro MD [address] [place] [address] Surgery, Neurosurgery 04/27/20 Yara Martinez PA [address] [place] [address] Physician Associate Software Development Engineer Pain Medicine 01/11/22 documented as of this encounter
--- OUTSIDE RECORDS SUMMARY | 2025-07-21 11:46 | XMS_ITS | Encounter Summary ---
Author Organization [facility] Address [address] [place] [address] Care Team Providers Care Head Of Music Name Role Phone Juan Banks MD Primary Care Provider Edmar Vallecillo PhD Unavailable [phone] Alexandru Villatoro MD Unavailable [phone] Yara Martinez Unavailable Encounter Details Date Type Department Care Team (Late st Contact Info) Description 05/07/2019 Scanned Document [facility] Neurosurgery [address] [phone] Alexandru Villatoro MD [address] [address] Social History Tobacco Use Types Packs/Day Years [...] Description 09/12/2025 10:40 AM EST Office Visit [facility] Neurosurgery [address] [phone] Ana Lilia Green, PA-C [address] [address] documented as of this encounter Visit Diagnoses Not on filedocumented in this encounter Care Teams Head Of Music Relationship Specialty Start Date End Date Juan Banks MD [address] [place] [address] PCP - General Internal Medicine 03/15/19 Edmar Vallecillo, PhD Needs valid address Clinical Psychologist Psychology 07/16/19 04/26/20 Alexandru Villatoro MD [address] [address] Surgery, Neurosurgery 04/27/20 Yara Martinez PA [address] [place] [address] Physician Machine Tool Rebuilder Pain Medicine 01/11/22 documented as of this encounter
--- OUTSIDE RECORDS SUMMARY | 2025-07-21 11:46 | XMS_ITS | Encounter Summary ---
Author Organization [facility] Address [address] [place] [address] Care Team Providers Care Program Director/Traffic Director Name Role Phone Juan Banks MD Primary Care Provider [phone] Alexandru Villatoro MD Unavailable [phone] Yara Martinez Unavailable [phone] Reason for Visit * Reason Comments Medication Refill Encounter Details Date Type Department Care Team (Late st Contact Info) Description 01/07/2022 Refill [facility] Neurosurgery [address] [phone] Marilou Suh PA Valid Address Needed Postlaminectomy [...] Description 09/12/2025 10:40 AM EST Office Visit [facility] Neurosurgery [address] [phone] Ana Lilia Green, PASiaC [address] [address] documented as of this encounter Visit Diagnoses Diagnosis Postlaminectomy syndrome of lumbar region Postlaminectomy syndrome, lumbar region documented in this encounter Care Teams Program Director/Traffic Director Relationship Specialty Start Date End Date Juan Banks MD [address] [place] [address] PCP - General Internal Medicine 03/15/19 Alexandru Villatoro MD [address] [address] Surgery, Neurosurgery 04/27/20 Yara Martinez PA [address] [place] [address] Physician Lobster Man Pain Medicine 01/11/22 documented as of this encounter
--- OUTSIDE RECORDS SUMMARY | 2025-07-21 11:46 | XMS_ITS | Encounter Summary ---
Author Organization [facility] Address [address] [place] [address] Care Team Providers Care Slope Tender Name Role Phone Juan Banks MD Primary Care Provider [phone] Alexandru Villatoro MD Unavailable [phone] Yara Martinez Unavailable [phone] Encounter Details Date Type Department Care Team (Late st Contact Info) Description 05/01/2020 Prep for Surgery [facility] [address] [place] [address] [address]nd [address] [place] [phone] Cici Montano APRN [address] [place] [address], [place] [phone] Preop testing (Primary Dx) Social History Tobacco [...] Description 09/12/2025 10:40 AM EST Office Visit [facility] Neurosurgery [place] 100 [facility] [address] [place] [phone] Ana Lilia Green PA-C 85 [facility] [address] [place] [address] documented as of this encounter Results * COVID-19 (SARS-COV-2) Lab Request (05/02/2020 9:49 AM EDT) COVID-19 (SARS-CoV-2) Specimen received and test ordered for designated performing laboratory. HOSPITAL LAB Microbiology Nasopharyngeal swab / Unknown 05/02/2020 9:49 AM EDT 05/02/2020 4:35 PM EDT Cici Montano IRRIGATION INSTALLATION SPECIALIST MICROBIOLOGY - GENERAL ORDER MIKE Final Result Performing Organization Address [facility] Co de Phone Number HOSPITAL LAB documented in this encounter Visit Diagnoses Diagnosis Preop testing- Primary Unspecified pre-operative examination documented in this encounter Care Teams Slope Tender Relationship Specialty Start Date End Date Juan Banks MD [address] [place] [address] PCP - General Internal Medicine 03/15/19 Alexandru Villatoro MD [address] [address] Surgery, Neurosurgery 04/27/20 Yara Martinez PA [address] [place] [address] Physician Sound Engineer Audio Control Pain Medicine 01/11/22 documented as of this encounter
--- OUTSIDE RECORDS SUMMARY | 2025-07-21 11:46 | XMS_ITS | Encounter Summary ---
Author Organization [facility] Address [address] [place] [address] Care Team Providers Care Car Retarder Operator Name Role Phone Juan Banks MD Primary Care Provider [phone] Alexandru Villatoro MD Unavailable [phone] Yara Martinez Unavailable [phone] Encounter Details Date Type Department Care Team (Late st Contact Info) Description 03/09/2022 Scanned Document [facility] Neurosurgery [place] 85 [facility] [address] [place] [phone] Marilou Suh PA Valid Address Needed Social [...] Description 09/12/2025 10:40 AM EST Office Visit [facility] Neurosurgery [address] [phone] Ana Lilia Green, PA-C [address] [place] [address] [phone] documented as of this encounter Visit Diagnoses Not on filedocumented in this encounter Care Teams Car Retarder Operator Relationship Specialty Start Date End Date Juan Banks MD [address] [place] [address] PCP - General Internal Medicine 03/15/19 Alexandru Villatoro MD [address] [place] [address] [phone] Surgery, Neurosurgery 04/27/20 Yara Martinez PA [address] [place] [address] Physician Checkroom Attendant Pain Medicine 01/11/22 documented as of this encounter
--- OUTSIDE RECORDS SUMMARY | 2025-07-21 11:46 | XMS_ITS | Encounter Summary ---
Author Organization [facility] Address [address] [place] [address] Care Team Providers Care Plant Scientist Name Role Phone Juan Banks MD Primary Care Provider [phone] Alexandru Villatoro MD Unavailable [phone] Yara Martinez Unavailable Encounter Details Date Type Department Care Team (Late st Contact Info) Description 06/16/2021 Scanned Document [facility] Neurosurgery [place] 85 [facility] [address] [place] [phone] Alexandru Villatoro MD 85 [facility] [place] [address] [place] [address] [phone] Social History Tobacco Use Types Packs/Day Years [...] 09/12/2025 10:40 AM EST Office Visit [facility] Neurosurgery [address] [phone] Ana Lilia Green, PA-C [address] [phone] documented as of this encounter Visit Diagnoses Not on filedocumented in this encounter Care Teams Plant Scientist Relationship Specialty Start Date End Date Juan Banks MD [address] [place] [address] PCP - General Internal Medicine 03/15/19 Alexandru Villatoro MD [address] [place] [address] [phone] Surgery, Neurosurgery 04/27/20 Yara Martinez PA [address] [place] [address] Physician Dog Track Kennel Manager Pain Medicine 01/11/22 documented as of this encounter
--- OUTSIDE RECORDS SUMMARY | 2025-07-21 11:46 | XMS_ITS | Encounter Summary ---
Author Organization [facility] Address [address] [place] [address] Care Team Providers Care Paratransit Driver Name Role Phone Juan Banks MD Primary Care Provider Alexandru Villatoro MD Unavailable [phone] Yara Martinez Unavailable Encounter Details Date Type Department Care Team (Late st Contact Info) Description 05/02/2022 Scanned Document [facility] Neurosurgery [place] [address] [phone] Neurosurgery, Scan Social History Tobacco Use Types [...] Description 09/12/2025 10:40 AM EST Office Visit [facility] Neurosurgery [address] [phone] Ana Lilia Green, PA-C [address] [phone] documented as of this encounter Visit Diagnoses Not on filedocumented in this encounter Care Teams Paratransit Driver Relationship Specialty Start Date End Date Juan Banks MD [address] [place] [address] PCP - General Internal Medicine 03/15/19 Alexandru Villatoro MD [address] [place] [address] Surgery, Neurosurgery 04/27/20 Yara Martinez PA [address] [place] [address] Physician Supervising Chef Pain Medicine 01/11/22 documented as of this encounter
--- OUTSIDE RECORDS SUMMARY | 2025-07-21 11:46 | XMS_ITS | Encounter Summary ---
Author Organization [facility] Address [address] [place] [address] Care Team Providers Care Product/Device Technologist Name Role Phone Juan Banks MD Primary Care Provider [phone] Alexandru Villatoro MD Unavailable [phone] Yara Martinez Unavailable Encounter Details Date Type Department Care Team (Late st Contact Info) Description 03/11/2022 [facility] Neurosurgery [place] 85 [facility] [address] [place] [phone] Myla Appiah, PA-C 85 [place] [address] Social History Tobacco Use Types [...] Description 09/12/2025 10:40 AM EST Office Visit [facility] Neurosurgery [address] [phone] Ana Lilia Green PA-C [address] [place] [address] documented as of this encounter Visit Diagnoses Not on filedocumented in this encounter Care Teams Product/Device Technologist Relationship Specialty Start Date End Date Juan Banks MD [address] [place] [address] [place] [address] PCP - General Internal Medicine 03/15/19 Alexandru Villtaoro MD [address] [place] [address] [phone] Surgery, Neurosurgery 04/27/20 Yara Martinez PA [address] [place] [address] Physician Uniforms Sales Representative Pain Medicine 01/11/22 documented as of this encounter
--- OUTSIDE RECORDS SUMMARY | 2025-07-21 11:46 | XMS_ITS | Clinical Summary ---
Author Organization [facility] Address [address] [facility] [address] [place] [address] Phone Care Team Providers Care Sail Repairer Name Role Phone Juan Banks MD Primary Care Provider [phone] Allergies Active Allergy Reactions Criticality Noted Date [...] ZOSTER VACCINES (2 of 2) 03/24/2021 01/27/2021 INFLUENZA VACCINE (#1) 2025 0, 06/25/2018, 07/17/2017, Additional history exists COVID-19 VACCINE (2 - 2024- season) 2025 02/08/2021 Adult Td,Tdap Booster 01/18/2031 01/18/2021 HEPATITIS A [...] PPO CIGNA PPO CIGNA PPO Care Teams Sail Repairer Relationship Specialty Start Date End Date Juan Banks MD [address] [place] [address] PCP - General Internal Medicine 06/05/18 Additional Source Comments The information contained in this document represents components of the legal health record. It is not the complete legal health record.[facility]
--- OUTSIDE RECORDS SUMMARY | 2025-07-21 11:46 | XMS_ITS | Encounter Summary ---
Author Organization [facility] Address [address] [place] [address] Care Team Providers Care Clubhouse Manager Name Role Phone Juan Banks MD Primary Care Provider [phone] Alexandru Villatoro MD Unavailable [phone] Yara Martinez Unavailable [phone] Encounter Details Date Type Department Care Team (Late st Contact Info) Description 03/11/2022 Scanned Document [facility] Neurosurgery [place] 85 [facility] [address] [place] [phone] Neurosurgery, Scan Social History Tobacco Use Types [...] Description 09/12/2025 10:40 AM EST Office Visit [facility] Neurosurgery [address] [phone] Ana Lilia Green PA-C [address] [place] [address] [phone] documented as of this encounter Visit Diagnoses Not on filedocumented in this encounter Care Teams Clubhouse Manager Relationship Specialty Start Date End Date Juan Banks MD [address] [facility] [place] [address] PCP - General Internal Medicine 03/15/19 Alexandru Villatoro MD [address] [place] [address] [phone] Surgery, Neurosurgery 04/27/20 Yara Martinez PA [address] [place] [address] Physician Asset Protection Specialist Pain Medicine 01/11/22 documented as of this encounter
--- OUTSIDE RECORDS SUMMARY | 2025-07-21 11:47 | XMS_ITS | Encounter Summary ---
Author Organization [facility] Address [address] [place] [address] Care Team Providers Care Grappler Name Role Phone Juan Banks MD Primary Care Provider [phone] Alexandru Villatoro MD Unavailable [phone] Yara Martinez Unavailable Encounter Details Date Type Department Care Team (Late st Contact Info) Description 09/14/2021 Prep for Surgery [facility] 85 [facility] [address] [place] [phone] Maria G Hyatt APRN 85 [facility] Abdiel [address] [place] [address] [phone] Pre-op examination (Primary Dx) Social History Tobacco [...] Description 09/12/2025 10:40 AM EST Office Visit [facility] Neurosurgery [address] [phone] Ana Lilia Green PA-C [address] [phone] documented as of this encounter Visit Diagnoses Diagnosis Pre-op examination- Primary documented in this encounter Care Teams Grappler Relationship Specialty Start Date End Date Juan Banks MD [address] [place] [address] PCP - General Internal Medicine 03/15/19 Alexandru Villatoro MD [address] [place] [address] [phone] Surgery, Neurosurgery 04/27/20 Yara Martinez PA [address] [place] [address] Physician Embedded Nurse Pain Medicine 01/11/22 documented as of this encounter
--- OUTSIDE RECORDS SUMMARY | 2025-07-21 11:47 | XMS_ITS | Clinical Summary ---
Author Organization [facility] Address [address] [place] [address] Phone Care Team Providers Care Financial Report Service Sales Agent Name Role Phone Juan Banks MD Primary Care Provider [phone] Allergies Active Allergy Reactions Criticality Noted Date [...] OBESIT CARPAL TUNNEL RELEASE 09/2014 Bilateral PROCEDURE: AR NEUROPLASTY &/TRANSPOS MEDIAN NRV CARPAL TUNNE ANKLE SURGERY 2004 Right PROCEDURE: HISTORICAL ANKLE SURGERY OTHER SURGICAL HISTORY 2011 PROCEDURE: AR HYSTEROSCOPY ENDOMETRIAL ABLATION SECTION 1986 PROCEDURE: HISTORICAL [...] Safety Answer Date Record ed Physical Abuse Unrecognized value 10/10/2024 Verbal Abuse Unrecognized value 10/10/2024 Comments No Sex and Gender Information [...] Last Done Comments Breast Cancer Screening 1971 Colorectal Cancer Screening: Colonoscopy 1971 Hepatitis B Vaccines (1 of 3 - 19+ 3-dose series) 1990 Cervical Cancer Screening: Pap Smear 01/25/1992 Zoster Vaccines (2 of 2) 03/24/2021 01/27/2021 Cholesterol Screening (Lipid Panel) 10/09/2024 HIV Screening 10/09/2024 Hepatitis C Screening 10/09/2024 Social Influencers of Health Screening 10/09/2024 Depression Screening 10/16/2024 COVID-19 Vaccine ( - season) 2025 07/08/2022, 03/01/2021, 02/08/2021 Influenza Vaccine (#1) 2025 2, 07/08/2022, 08/13/2021, Additional history exists DTaP,Tdap,and Td Vaccines (3 - Td or Tdap) 01/18/2031 01/18/2021, 09/15/2000 RSV Immunization Adult Patients (1 - 1-dose 75+ series) 2046 Pneumococcal Vaccine: 50+ Years Completed 01/27/2023, 09/02/2015, [...] this topic Medical Devices Implanted Type Area Form Tamper Device Identifier Shelf Expiration Date Model / Serial / Lot Stent Uret [id number] Stretch W/O Gw - Sn/A - [id number] Implanted:Qty: 1 on 10/10/2024 by Yogi Kidd MD at [facility] Stents Left: Ureter [employer] [facility] Y 04/24/2027 [id number] / N/A / [id number] Insurance MEDICARE [facility] Advance Directives * Full Code - Confirmed [...] currently active code status orders. Care Teams Financial Report Service Sales Agent Relationship Specialty Start Date End Date Juan Banks MD [address] [place] [phone] PCP - General Internal Medicine 07/31/13
--- OUTSIDE RECORDS SUMMARY | 2025-07-21 11:47 | XMS_ITS | Clinical Summary ---
Author Organization [facility] Address [address] [place] [address] Care Team Providers Care Manager Solution Name Role Phone Juan Banks MD Primary Care Provider [phone] Alexandru Villatoro MD Unavailable [phone] Yara Martinez Unavailable [phone] Allergies Active Allergy Reactions Criticality Noted [...] spinal cord stimulator 03/15/2019 Lumbar radiculopathy 03/15/2019 Encounters Date Type Department Care Team Description 07/11/2025 Orders Only [facility] [address] [facility] [place] [address] Ben, Radiology Results from Last 3 Months Immunizations Immunization Administration Dates Next Due Covid-19 [...] 09/02/2024 10:47 AM EST Plan of Treatment Upcoming Encounters Date Type Department Care Team (Late st Contact Info) Description 09/12/2025 10:40 AM EST Office Visit [facility] Neurosurgery [address] [place] [address] Ana Lilia Green PA-C [address] [place] [address] [place] [phone] Health Maintenance Due Date Last Done Comments Hepatitis C Virus Screening 1971 HIV Screening 01/25/1984 Hepatitis B Vaccines (1 of 3 - 19+ 3-dose series) 1990 Pap Smear (Ages 21-65) 01/25/1992 Mammogram 2011 Colonoscopy 01/25/2016 Pneumococcal Vaccines 50+ (2 of 2 - PCV) 09/02/2016 09/02/2015 Zoster (Shingles) Vaccine (1 of 2) 2021 Influenza Vaccine 05/16/2025 07/08/2022, , 08/13/2021, Additional history exists COVID-19 Vaccine (3 - 2024-2 6 season) 2025 03/01/2021, 02/08/2021 DTaP/Tdap/Td Vaccines (2 - T d or Tdap) 01/18/2031 01/18/2021 Chronic Controlled Substance Toxicology Screening Discontinued 06/05/2019, 05/31/2019, 03/31/2019 Chronic Controlled Substance User PDMP Review Discontinued 03/10/2023, 05/31/2019 Medical Devices Implanted Type Area Life Skills Worker Device Identifier Shelf Expiration Date Model / Serial / Lot Nail/Sachin Nail/Sachin Back Description:4 rods implanted Spinal Cord Stimulator Stimulator [id number] Lead Neurostimulator 60cm 5mm Vectris 1x8 Electrode Trl - [id number] Implanted:Qty: 1 on 12/26/2019 by Mohan Richard MD at [facility] Stimulator N/A: Back [employer] 10/28/2023 [id number] / / [id number] Lead Neurostimulator 60cm 5mm Vectris 1x8 Electrode Trl - [id number] Implanted:Qty: 1 on 12/26/2019 by Mohan Richard MD at [facility] Stimulator N/A: Back [employer] 10/29/2023 [id number] / / [id number] Neurostimulator Implantable Chrnc Pain Rs2 - [id number] Implanted:Qty: 1 on 05/06/2020 by Alexandru Villatoro MD at [facility] Stimulator Left: Buttocks [employer] 02/10/2021 [id number] / [id number] / [id number] Neurostimulator Implant Primeadvanced Surescan Mri - [id number] Implanted:Qty: 1 on 09/15/2021 by Alexandru Villatoro MD at [facility] Stimulator Left: Buttocks [employer] 11/12/2021 [id number] / [id number] Citrus Peeler Neurostimulator Mystim Mri Tc Extension - [id number] Implanted:Qty: 1 on 09/15/2021 by Alexandru Villatoro MD at [facility] Stimulator [employer] [id number] / [id number] / [id number] Envelope Absorbable Lg 3.35x3in Polyarylate Minocycline - [id number] Implanted:Qty: 1 on 09/15/2021 by Alexandru Villatoro MD at [facility] Tissue Left: Buttocks [employer] 04/24/2022 [id number] / / [id number] Vectris Tm Surescan Mri Lead Kit For Spinal Cord Stimulation Implanted:Qty: 1 on 05/06/2020 by Alexandru Villatoro MD at [facility] Spine Thoracic [employer] 07/23/2023 [id number] / / [id number] Vectris Tm Surescan Mri Lead Kit For Spinal Cord Stimulation Implanted:Qty: 1 on 05/06/2020 by Alexandru Villatoro MD at [facility] Spine Thoracic [employer] 11/07/2023 [id number] / / [id number] Extension Lead 40cm Implanted:Qty: 1 on 07/15/2021 by Alexandru Villatoro MD at [facility] [employer] [id number] / [id number] / Extension Kit 40cm Implanted:Qty: 1 on 07/15/2021 by Alexandru Villatoro MD at [facility] [employer] [id number] / [id number] / Specify Surescan Mri 2x8 Implanted:Qty: 1 on 2022 by Alexandru Villatoro MD at [facility] [employer] 01/19/2025 [id number] / / [id number] Vanta Adapt[employer]estim Implanted:Qty: 1 on 07/19/2024 by Alexandru Villatoro MD at [facility] N/A: Back Explanted Type Area Life Skills Worker Device Identifier Shelf Expiration Date Model / Serial / Lot [id number] Kit Accessory .133in Injex Brianna Baso4 Biwing Flexible Removal - [id number] Explanted:Qty: 1 on 12/26/[address] [facility] Stimulator [employer] [id number] / / [id number] C-Armor Explanted:Qty: 1 on 12/26/[address] [facility] Other [id number] / / Description:C-armor drape, n ot an implant (not implanted or explanted) only way to charge for it in [facility] C-Arm Drape Explanted:Qty: 2 on 12/26/[address] [facility] [employer] CYNTHIA [id number] / / Description:not an implant, c-arm drape, only way of charging in [facility] Wireless Externa Neurostimulator Explanted:Qty: 1 on 12/26/2019 by Mohan Richard MD at [facility] N/A: Back [employer] [id number] / / [id number] Description:not an implant, only way to charge in [facility] External Neurostimulator Boot Explanted:Qty: 1 on 12/26/2019 by Mohan Richard MD at [facility] N/A: Back [employer] [id number] / / [id number] Description:Not an implant, only way to charge for in [facility] Procedures Procedure Name Priority Date/Time Associated Diagnosis Comments MR SPINE - LUMBAR WITH AND WITHOUT CONTRAST Routine 07/11/2025 2:34 PM EDT DRUG MONITORING,OPIATES EXPANDED,QUANT,W/ME DMATCH,URINE Routine 06/05/2019 4:18 PM EDT Chronic pain syndrome Opioid type dependence, continuous (HCC) from Last 3 Months or Most Recently Relevant to Health Maintenance Results * MR SPINE - LUMBAR WITH AND WITHOUT CONTRAST (07/11/2025 2:34 PM EDT) Anatomical Region Laterality Modality Other 07/11/2025 1:30 PM EDT 07/11/2025 1:30 PM EDT Impressions 07/11/2025 4:03 PM EDT 1. Postoperative changes are seen at L4-5. There is no evidence of any significant spinal canal stenosis at this level. There is a small amount of granulation tissue along the posterior aspect of the thecal sac. 2. There is grade 1 anterolisthesis of L3 on L4. There is mild bilateral neural foraminal narrowing at this level. Electronically signed by: Michael Suarez MD 07/11/2025 04:03 PM EDT Thank you for referring your patient to us, Michael Suarez MD [phone] (Electronically Signed - 07/11/2025 16:03) Copy: PATIENT , ALEXANDRU VILLATORO MD [facility] [address] [facility] [address] [place] [address] Narrative 07/11/2025 4:03 PM EDT EXAMINATION: MR SPINE - LUMBAR WITH AND WITHOUT CONTRAST CLINICAL INDICATION: Postlaminectomy syndrome TECHNIQUE: MR of the lumbar spine without and with contrast. 10 mL Gadavist COMPARISON: MRI thoracic spine most recently May 24, 2024 FINDINGS: Alignment: Normal lumbar lordosis. There is slight anterolisthesis of L3 on L4. There are bilateral rods and pedicle screws transfixing L4 and L5 levels. Vertebral body heights: Vertebral body heights are maintained. Bones and Marrow: Within the L2 vertebral body there is a T1 and T2 hypointense lesion which was also present on MRI from April 07, 2022 suggesting a benign etiology. There is no focal suspicious bone marrow signal or edema within the lumbar levels. Disc height and signal: There is degenerative disc desiccation with slight height loss seen at L4-5. Conus/Intrathecal: The distal cord is normal in size and signal characteristics. The cord terminates at L2. There is no abnormal enhancement of the nerve roots. Paraspinous Soft Tissues: Postoperative changes are seen. Stimulator leads are seen within the subcutaneous fat of lower back entering the spinal canal above the zszuv-rb-rfbf. Disc levels: L1-L2:There is no significant spinal canal or neural foraminal stenosis. L2-L3:There is a small disc bulge and facet arthropathy. There is no significant spinal canal or neural foraminal stenosis. L3-L4:There is grade 1 anterolisthesis. There is a small disc bulge and facet arthropathy. There is no significant spinal canal stenosis. There is mild bilateral neural foraminal narrowing, right greater than left. L4-L5:There is no evidence of any significant spinal canal stenosis status post decompression and fusion. There is a small amount of granulation tissue along the posterior aspect of thecal sac L5-S1:. There is a slight disc bulge and facet arthropathy. There is no significant spinal canal or neural foraminal stenosis. Procedure Note Michael Suarez MD - 07/11/2025 EXAMINATION: MR SPINE - LUMBAR WITH AND WITHOUT CONTRAST CLINICAL INDICATION: Postlaminectomy syndrome TECHNIQUE: MR of the lumbar spine without and with contrast. 10 mLGadavist COMPARISON: MRI thoracic spine most recently May 24, 2024 FINDINGS: Alignment: Normal lumbar lordosis. There is slight anterolisthesis of L3on L4. There are bilateral rods and pedicle screws transfixing L4 and A0nvvcqb. Vertebral body heights: Vertebral body heights are maintained. Bones and Marrow: Within the L2 vertebral body there is a T1 and K1hsdstogauzv lesion which was also present on MRI from April 07uggesting a benign etiology. There is no focal suspicious bone marrowsignal or edema within the lumbar levels. Disc height and signal: There is degenerative disc desiccation with slightheight loss seen at L4-5. Conus/Intrathecal: The distal cord is normal in size and signalcharacteristics. The cord terminates at L2. There is no abnormalenhancement of the nerve roots. Paraspinous Soft Tissues: Postoperative changes are seen. Stimulator leadsare seen within the subcutaneous fat of lower back entering the spinalcanal above the jsgav-ww-ajkf. Disc levels: L1-L2:There is no significant spinal canal or neural foraminal stenosis. L2-L3:There is a small disc bulge and facet arthropathy. There is nosignificant spinal canal or neural foraminal stenosis. L3-L4:There is grade 1 anterolisthesis. There is a small disc bulge andfacet arthropathy. There is no significant spinal canal stenosis. There ismild bilateral neural foraminal narrowing, right greater than left. L4-L5:There is no evidence of any significant spinal canal stenosis statuspost decompression and fusion. There is a small amount of granulationtissue along the posterior aspect of thecal sac L5-S1:. There is a slight disc bulge and facet arthropathy. There is nosignificant spinal canal or neural foraminal stenosis. IMPRESSION: 1. Postoperative changes are seen at L4-5. There is no evidence of anysignificant spinal canal stenosis at this level. There is a small amountof granulation tissue along the posterior aspect of the thecal sac. 2. There is grade 1 anterolisthesis of L3 on L4. There is mild bilateralneural foraminal narrowing at this level. Electronically signed by: Michael Suarez MD 07/11/2025 04:03 PM EDT RPWorkstation: [id number] Thank you for referring your patient to us, Michael Suarez MD [phone] (Electronically Signed - 07/11/2025 16:03) Copy: PATIENT , ALEXANDRU VILLAOTRO MD [facility] [address] [facility] [address] [place] [address] us Generic Provider IMG LEGACY PROCEDURES Final Res ult * (ABNORMAL) Drug Monitoring,Opiates Expanded,Quant w/medMATCH,Urine (06/05/2019 [...] Comment:See Note 1 medMATCH Noroxycodone INCONSISTENT( A) [facility] Oxycodone NEGATIVE <50 ng/mL [facility] Comment:See Note 1 medMATCH Oxycodone INCONSISTENT( A) [facility] Oxymorphone NEGATIVE <50 ng/mL [facility] Comment:See Note 1 medMATCH Oxymorphone INCONSISTENT( A) [facility] Manny [facility] Comment: See Note 2 Note 1 This test was developed and its analytical performance characteristics have been determined by [facility]. It has not been cleared or approved [...] or to monitor progress of medical conditions. FiscalNote comments are: - present when drug test results may be the result of metabolism of one or more drugs or when results are inconsistent with prescribed medication(s) listed. - may be blank when drug results are consistent with prescribed medication(s) listed. For assistance with interpreting these drug results, please contact a [facility] Toxicology Specialist: [phone] ( ), M-F, 8am-6pm EST. Specimen from unspecified body site / Unknown 06/05/2019 4:18 PM EDT 06/07/2019 2:58 AM EDT Narrative Resulting Agency Comment Performing Organization Information: Site ID: [id number] Name: [id number] Address: [address] [place] [address], [place] [address] Director: Ashley Kelly MD Yara Ocampo APRN URINE ORDERABLES Final Result [facility] [address] [place] [address], [facility] [place] [address] from Last 3 Months or Most Recently Relevant to Health Maintenance Insurance CIG HMO [facility] HMO [facility] HMO Advance Directives * Full Code (Latest [...] 10:09 AM 09/15/2021 10:13 AM Care Teams Manager Solution Relationship Specialty Start Date End Date Juan Banks MD [address] [place] [address] PCP - General Internal Medicine 03/15/19 Alexandru Villatoro MD [address] [place] [address] Surgery, Neurosurgery 04/27/20 Yara Martinez PA [address] [place] [address] Physician Blemish Remover Pain Medicine 01/11/22
--- OUTSIDE RECORDS SUMMARY | 2025-07-21 11:47 | XMS_ITS | Encounter Summary ---
Author Organization [facility] Address [address] [place] [address] Care Team Providers Care Floral Merchandiser Name Role Phone Juan Banks MD Primary Care Provider Alexandru Villatoro MD Unavailable [phone] Yara Martinez Unavailable Encounter Details Date Type Department Care Team (Late st Contact Info) Description 09/14/2021 Scanned Document [facility] Neurosurgery [place] 85 [facility] [address] [place] [phone] Alexandru Villatoro MD 85 [facility] Abdiel [address] [place] [address] [id number] Social History Tobacco Use Types Packs/Day Years [...] Description 09/12/2025 10:40 AM EST Office Visit [facility] Neurosurgery [address] [phone] Ana Lilia Green PA-C [address] [place] [phone] documented as of this encounter Visit Diagnoses Not on filedocumented in this encounter Care Teams Floral Merchandiser Relationship Specialty Start Date End Date Juan Banks MD [address] [place] [address] [place] [address] PCP - General Internal Medicine 03/15/19 Alexandru Villatoro MD [address] [place] [address] [phone] Surgery, Neurosurgery 04/27/20 Yara Martinez PA [address] [place] [address] Physician Wig Stylist Pain Medicine 01/11/22 documented as of this encounter
--- OUTSIDE RECORDS SUMMARY | 2025-07-21 11:47 | XMS_ITS | Encounter Summary ---
Author Organization [facility] Address [address] [place] [address] Care Team Providers Care Rn Child Name Role Phone Juan Banks MD Primary Care Provider [phone] Alexandru Villatoro MD Unavailable [phone] Yara Martinez Unavailable [phone] Encounter Details Date Type Department Care Team (Late st Contact Info) Description 09/15/2021 Scanned Document [facility] Neurosurgery [place] 85 [facility] [address] [place] [phone] Alexandru Villatoro MD 85 [facility] Abdiel [address] [place] [address] [phone] Social History Tobacco Use Types Packs/Day Years [...] Description 09/12/2025 10:40 AM EST Office Visit [facility] Neurosurgery [address] [phone] Ana Lilia Green PA-C [address] [place] [phone] documented as of this encounter Visit Diagnoses Not on filedocumented in this encounter Care Teams Rn Child Relationship Specialty Start Date End Date Juan Banks MD [address] [place] [address] [place] [address] PCP - General Internal Medicine 03/15/19 Alexandru Villatoro MD [address] [place] [address] [phone] Surgery, Neurosurgery 04/27/20 Yara Martinez PA [address] [place] [address] Physician Bicycle Inspector Pain Medicine 01/11/22 documented as of this encounter
--- OUTSIDE RECORDS SUMMARY | 2025-07-21 11:47 | XMS_ITS | Clinical Summary ---
Author Organization [facility] Address [address] [id number] Care Team Providers Care Parachute Manufacturing Supervisor Name Role Phone Juan Banks MD Primary Care Provider [phone] Allergies Active Allergy Reactions Criticality Noted Date [...] age to complete this topic Care Teams Parachute Manufacturing Supervisor Relationship Specialty Start Date End Date Juan Banks MD [address] [place] [address] PCP - General Internal Medicine 06/11/21
--- OUTSIDE RECORDS SUMMARY | 2025-07-21 11:47 | XMS_ITS | Encounter Summary ---
Author Organization [facility] Address [address] [place] [address] Care Team Providers Care Industry Segment Specialist Name Role Phone Juan Banks MD Primary Care Provider [phone] Alexandru Villatoro MD Unavailable [phone] Yara Martinez Unavailable Encounter Details Date Type Department Care Team (Late st Contact Info) Description 01/11/2022 Telephone [facility] [place] 31 [facility] 2nd Floor [address] [place] [phone] Puja Sandoval MA [address] [place] [address] Social History Tobacco Use Types Packs/Day Years [...] Have you recently had an admission to SNF/Rehab/Retirement? No Have you traveled internationally or domestically in the last month? No documented in this encounter Plan of Treatment Upcoming Encounters Date Type Department Care Team (Late st Contact Info) Description 09/12/2025 10:40 AM EST Office Visit [facility] Neurosurgery [address] [phone] Ana Lilia Green PA-C 85 [facility] [address] [place] [address] documented as of this encounter Visit Diagnoses Not on filedocumented in this encounter Care Teams Industry Segment Specialist Relationship Specialty Start Date End Date Juan Banks MD [address] [place] [address] PCP - General Internal Medicine 03/15/19 Alexandru Villatoro MD [address] [place] [address] [place] [address] Surgery, Neurosurgery 04/27/20 Yara Martinez PA [address] [place] [address] [address] [place], [place] [phone] Physician Perishable Freight Inspector Pain Medicine 01/11/22 documented as of this encounter
== END 2025-07-21 10:55 | disposition home or self-care (01) ==
LOC: HO.PMC 10:08
PROVIDERS: PCP Internal Medicine; Visit Provider Nurse Practitioner Family
DX: M96.1 Postlaminectomy syndrome, not elsewhere classified (principal); M51.369 Other intervertebral disc degeneration, lumbar region without mention of lumbar back pain or lower extremity pain; M54.16 Radiculopathy, lumbar region; M53.3 Sacrococcygeal disorders, not elsewhere classified; M70.61 Trochanteric bursitis, right hip; M70.62 Trochanteric bursitis, left hip; M54.50 Low back pain, unspecified; G89.29 Other chronic pain
CPT/HCPCS: 99214